=== PATIENT | female | born 1950 | race Caucasian/White ===

== ENCOUNTER 2020-08-12 09:05 | Outpatient (REF) | payer MEDICARE, SELFPAY ==
[2020-08-12 11:36] LABS: Estimated Average Glucose 163 mg/dL; Hemoglobin A1c % 7.3 %
[2020-08-12 12:06] LABS: Alanine Aminotransferase 21 U/L (0-31); Albumin Level 4.7 g/dL (3.5-5.0); Alkaline Phosphatase 74 U/L (39-117); Anion Gap 16 (12-20); Aspartate Amino Transferase 24 U/L (5-31); Bilirubin Total 0.9 mg/dL (0.0-1.0); Blood Urea Nitrogen 32 mg/dL (9-16); Calcium 9.3 mg/dL (8.4-10.2); Carbon Dioxide 25 mmol/L (22-29); Chloride 106 mmol/L (96-108); Cholesterol 147 mg/dL; Estimated Glomerular Filt Rate 37; Glucose Fasting 160 mg/dL (60-99); HDL Cholesterol 35 mg/dL; LDL Cholesterol Calculated 92 mg/dl; Potassium 5.3 mmol/l (3.3-5.1); Sodium 142 mmol/L (135-145); Total Protein 7.7 g/dL (6.5-8.0); Triglycerides 103 mg/dL
[2020-08-12 12:07] LABS: TSH reflex Free T4 1.37 mIU/mL (0.32-4.0)
[2020-08-13 08:38] LABS: Lyme Abs Screen <0.90 index
== END 2020-08-12 09:06 | disposition home or self-care (01) ==
LOC: HO.HMGCLDS 09:05
PROVIDERS: PCP Nurse Practitioner Family; Visit Provider Nurse Practitioner Family
DX: E11.9 Type 2 diabetes mellitus without complications (principal); W57.XXXA Bitten or stung by nonvenomous insect and other nonvenomous arthropods, initial encounter; I10 Essential (primary) hypertension
CPT/HCPCS: 80053; 80061; 83036; 84443; 86618

== ENCOUNTER 2020-08-13 12:51 | Outpatient (REF) | payer MEDICARE, SELFPAY ==
[2020-08-13 14:17] LABS: Anion Gap 15 (12-20); Carbon Dioxide 23 mmol/L (22-29); Chloride 105 mmol/L (96-108); Potassium 5.4 mmol/l (3.3-5.1); Sodium 138 mmol/L (135-145)
== END 2020-08-13 12:52 | disposition home or self-care (01) ==
LOC: HO.HMGCLDS 12:51
PROVIDERS: PCP Nurse Practitioner Family; Visit Provider Nurse Practitioner Family
DX: E87.5 Hyperkalemia (principal)
CPT/HCPCS: 80051

== ENCOUNTER 2020-08-14 06:23 | Outpatient (REF) | payer MEDICARE, SELFPAY ==
[2020-08-14 12:00] LABS: Anion Gap 12 (12-20); Carbon Dioxide 30 mmol/L (22-29); Chloride 104 mmol/L (96-108); Potassium 4.6 mmol/l (3.3-5.1); Sodium 141 mmol/L (135-145)
== END 2020-08-14 06:24 | disposition home or self-care (01) ==
LOC: HO.HMGCLDS 06:23
PROVIDERS: PCP Nurse Practitioner Family; Visit Provider Nurse Practitioner Family
DX: E87.5 Hyperkalemia (principal)
CPT/HCPCS: 80051

== ENCOUNTER 2020-09-02 06:35 | Outpatient (REF) | payer MEDICARE, SELFPAY | END 2020-09-02 06:36 | disposition home or self-care (01) | LOC: HO.HMGCLDS 06:35 | PROVIDERS: PCP Nurse Practitioner Family; Visit Provider Internal Medicine | DX: Z20.822 Contact with and (suspected) exposure to COVID-19 (principal) | CPT/HCPCS: 36415; C9803; U0003 ==

== ENCOUNTER 2020-11-21 09:54 | Outpatient (REF) | payer MEDICARE, SELFPAY ==
[2020-11-21 11:32] LABS: Estimated Average Glucose 166 mg/dL; Hemoglobin A1c % 7.4 %
== END 2020-11-21 09:55 | disposition home or self-care (01) ==
LOC: HO.HMGCLDS 09:54
PROVIDERS: PCP Nurse Practitioner Family; Visit Provider Nurse Practitioner Family
DX: E11.9 Type 2 diabetes mellitus without complications (principal)
CPT/HCPCS: 36415; 80053; 80061; 83036; 84443

== ENCOUNTER 2020-12-04 06:04 | Outpatient (REF) | payer MEDICARE, SELFPAY ==
[2020-12-04 17:44] LABS: Alanine Aminotransferase 20 U/L (0-31); Albumin Level 4.3 g/dL (3.5-5.0); Alkaline Phosphatase 67 U/L (39-117); Anion Gap 13 (12-20); Aspartate Amino Transferase 18 U/L (5-31); Bilirubin Total 0.7 mg/dL (0.0-1.0); Blood Urea Nitrogen 22 mg/dL (9-16); Calcium 9.1 mg/dL (8.4-10.2); Carbon Dioxide 28 mmol/L (22-29); Chloride 106 mmol/L (96-108); Cholesterol 143 mg/dL; Estimated Glomerular Filt Rate 45; Glucose Fasting 151 mg/dL (60-99); HDL Cholesterol 35 mg/dL; LDL Cholesterol Calculated 84 mg/dl; Potassium 4.5 mmol/L (3.3-5.1); Sodium 142 mmol/L (135-145); Total Protein 7.2 g/dL (6.5-8.0); Triglycerides 121 mg/dL
[2020-12-04 17:56] LABS: TSH reflex Free T4 3.35 uIU/mL (0.32-4.0)
== END 2020-12-04 06:05 | disposition home or self-care (01) ==
LOC: HO.HMGCLDS 06:04
PROVIDERS: PCP Nurse Practitioner Family; Visit Provider Nurse Practitioner Family
DX: E11.9 Type 2 diabetes mellitus without complications (principal)
CPT/HCPCS: 36415; 80053; 80061; 84443

== ENCOUNTER → 2021-01-21 08:18 | Outpatient (BNVA) | payer MEDICARE, SELFPAY | PROVIDERS: PCP Nurse Practitioner Family; Referring Provider Nurse Practitioner Family; Visit Provider Internal Medicine Cardiovascular Disease | DX: I48.20 Chronic atrial fibrillation, unspecified (principal); I10 Essential (primary) hypertension | CPT/HCPCS: 93005; 99212 ==

== ENCOUNTER → 2021-08-04 08:10 | Outpatient (REF) | payer MEDICARE, SELFPAY ==
--- NOTE | 2021-08-04 08:12 | CA_ITS ---
Transthoracic Echocardiogram Patient (Last, First, Middle): Anastasiya Phan A Gender: Female Date of : 1950 Age: 71 Procedure Date: 08/04/2021 Procedure Type: Transthoracic Echocardiogram Location: OP Height: 165.1 cm Weight: 92.08 kg BSA: 1.99 m2 Heart Rate: bpm BP: 130 / 80 mmHg Fancy Packer: NEAL Referring MD: Parish Juan MD Symptoms: I48.20 - Chronic atrial fibrillation, unspecified Study Quality: Technically Difficult ECG Rhythm: Atrial Fibrillation Conclusions: - The left ventricular systolic function is normal. The visually estimated ejection fraction is between 55-60%. - There is low normal right ventricular systolic function. - There is moderate mitral annular calcification. - Mild pulmonary hypertension is present. Findings Procedure Information The patient declines contrast. Left Ventricle Normal left ventricular cavity size. There is mildly increased left ventricular wall thickness. The left ventricular systolic function is normal. The visually estimated ejection fraction is between 55-60%. There is no evidence of regional wall motion abnormalities. Diastolic function is indeterminate on the basis of available data. Right Ventricle Mildly increased right ventricular cavity size. There is low normal right ventricular systolic function. TAPSE 1.7cm. Atria The left atrium is mildly dilated. (LAESV 37ml/m2). The right atrium is normal in size. Aortic Valve The aortic valve was not well visualized. There is no aortic valve stenosis. The mean gradient is 3 mmHg. There is trace (trivial) aortic valve regurgitation. Mitral Valve The mitral valve was not well visualized. There is moderate mitral annular calcification. There is mild mitral valve regurgitation. There is no mitral valve stenosis. Pulmonic Valve The pulmonic valve was not well visualized. Tricuspid Valve The tricuspid valve was not well visualized. There is mild tricuspid valve regurgitation. The right ventricular systolic pressure is 42 mmHg. Mild pulmonary hypertension is present. Great Vessels The aorta was not well visualized. Venous The inferior vena cava collapses less than 50% with inspiration. Top normal IVC size. Pericardium/Pleural There is no evidence of pericardial effusion. Prior Study Comparison Changes noted compared to prior study dated: 04/06/2018. Increase in RVSP. Measurements 2D Linear Measurements IVSd: 1.13 0.6-0.9/0.6-1.0 cm LVIDd: 3.97 3.9-5.3/4.2-5.9 cm LVIDd Index: 1.99 2.4-3.2/2.2-3.1 cm/m2 LVIDs: 2.94 2.0-3.6 cm LVPWd: 1.09 0.7-1.1 cm Ao Root: 3.20 2.1-3.5 cm LA Diam: 4.20 2.7-3.8/3.0-4.0 cm LAIDs Index: 2.11 1.5-2.3 cm/m2 LV Mass: 181.59 67-162/88-224 g LV Mass Index: 91.25 43-95/49-115 g/m2 LVOT Diam: 2.20 3.0+(-)1.3 cm Aortic Valve AoV Pk Arian: 1.36 AoV Mn Arian: 0.85 AoV VTI: 0.26 AoV Pk Grad: 7.00 Aov Mn Grad: 3.00 JUANIS Cont.VTI: 2.06 LVOT LVOT Pk Arian: 0.69 LVOT Mn Arian: 0.48 LVOT VTI: 0.14 LVOT Pk Grad: 2.00 LVOT Mn Grad: 1.00 LVOT Diam: 2.20 LVOT Area: 3.80 Right Ventricle TAPSE (mm): 1.74 TVS' Arian: 12.10 Tricuspid Valve TR Pk Arian: 2.91 TR Pk Grad: 34.00 RA Press: 8.00 RVSP: 42.00 Great Vessels Aorta Ao Root-2D: 3.20 2.0-3.7 cm Ao Arch: 3.10 Updated in Other Vendor System with Status of Final Mason Hilliard MD electronically signed on 08/04/2021 12:16:24 PM with status of Final
== END ==
LOC: HO.CARD 08:10
PROVIDERS: PCP Nurse Practitioner Family; Visit Provider Internal Medicine Cardiovascular Disease
DX: I48.20 Chronic atrial fibrillation, unspecified (principal); I10 Essential (primary) hypertension
CPT/HCPCS: 93306

== ENCOUNTER 2021-09-17 08:43 | Outpatient (REF) | payer MEDICARE, SELFPAY ==
--- NOTE | ~2021-09-17 | XR_ITS ---
EXAMINATION: XR WRIST, RIGHT CLINICAL INFORMATION: M25.531 - Pain in right wrist. COMPARISON: Radiographs right wrist 09/28/2007. TECHNIQUE: Right wrist is imaged in 4 views. FINDINGS: The navicular view shows subtle cortical irregularity at the distal lateral aspect of the navicular. If there has been recent injury, this could be related to a focal non-displaced fracture. Clinically correlate. Otherwise, there is no fracture or dislocation demonstrated. Mild degenerative changes are present at the 1st carpometacarpal joint. There are no erosive changes or chondrocalcinosis. The ulnar variance is neutral. Normal bony mineralization. XR/XR wrist RT min 3V IMPRESSION: 1. Question of focal cortical irregularity distal lateral corner navicular on 1 view. If there has been recent injury, this could be related to a focal non-displaced fracture. Clinically correlate. 2. Mild degenerative changes 1st CMC joint.
== END 2021-09-17 08:44 | disposition home or self-care (01) ==
LOC: HO.HMGCX 08:43
PROVIDERS: PCP Nurse Practitioner Family; Visit Provider Nurse Practitioner Family
DX: M25.531 Pain in right wrist (principal)
CPT/HCPCS: 73110

== ENCOUNTER 2021-09-23 07:21 | Outpatient (REF) | payer MEDICARE, SELFPAY ==
--- NOTE | ~2021-09-23 | XR_ITS ---
EXAMINATION: XR RIGHT WRIST CLINICAL INFORMATION: Pain COMPARISON: Previous x-ray 09/17/2021 and August 2007 exam TECHNIQUE: 4 views of the right wrist FINDINGS: There is slight cortical irregularity of the lateral distal scaphoid bone similar to previous exams. There are cystic changes seen in the radial styloid and navicular bone. There are degenerative changes of the 1st SHELTER joint. There are small soft tissue calcifications adjacent to the triquetrum and ulnar styloid. XR/XR wrist RT w scaphoid IMPRESSION: Stable cortical irregularity of the lateral radial side of the distal scaphoid bone from previous exams. Cystic changes radial styloid and scaphoid bone. Findings may be related to inflammatory arthritis. Degenerative changes of the 1st SHELTER joint.
== END 2021-09-23 07:22 | disposition home or self-care (01) ==
LOC: HO.HOSX 07:21
PROVIDERS: Visit Provider Physician Assistant
DX: S63.501A Unspecified sprain of right wrist, initial encounter (principal); S62.001A Unspecified fracture of navicular [scaphoid] bone of right wrist, initial encounter for closed fracture
CPT/HCPCS: 73110; 99202

== ENCOUNTER 2021-10-14 07:11 | Outpatient (REF) | payer MEDICARE, SELFPAY ==
--- NOTE | ~2021-10-14 | XR_ITS ---
EXAMINATION: XR WRIST, RIGHT CLINICAL INFORMATION: Right wrist pain. COMPARISON: Right wrist 09/23/2021. TECHNIQUE: 4 views of the right wrist. FINDINGS: Compared to the study from less than one month ago there has been no interval change. Again seen are degenerative findings at the 1st MCFP joint. An osteophyte is arising laterally from the scaphoid which also has a cyst. Some mild degenerative changes seen at the radiocarpal joint with a subchondral radial cyst, unchanged. The soft tissue calcification seen lateral to the ulnar styloid is not seen on the current study. XR/XR wrist RT w scaphoid IMPRESSION: Degenerative changes in the wrist and MCFP joint of the 1st digit. There has been no interval change since the prior exam. No evidence of an acute fracture.
== END 2021-10-14 07:12 | disposition home or self-care (01) ==
LOC: HO.HOSX 07:11
PROVIDERS: Visit Provider Physician Assistant
DX: S62.001A Unspecified fracture of navicular [scaphoid] bone of right wrist, initial encounter for closed fracture (principal)
CPT/HCPCS: 29085; 73110; 99212

== ENCOUNTER 2021-10-16 11:57 | Outpatient (REF) | payer MEDICARE, SELFPAY ==
--- NOTE | ~2021-10-16 | MR_ITS ---
EXAMINATION: MR WRIST WITHOUT CONTRAST, RIGHT CLINICAL INFORMATION: Fall 1.5 months ago. Pain of wrist and thumb. Navicular/scaphoid fracture. COMPARISON: Multiple priors, most recent right wrist radiographs dated 10/14/2021. TECHNIQUE: MRI of the wrist was performed using routine sequences on a high-field scanner. FINDINGS: TRIANGULAR FIBROCARTILAGE: There is a full-thickness tear through the central radial aspect of the triangular fibrocartilage complex measuring up to 0.3 cm in ML dimension. INTRINSIC LIGAMENTS: There is diffuse thickening and abnormal signal throughout the scapholunate ligament without associated joint space widening, consistent with a chronic sprain/partial tear. TENDONS/MEDIAN NERVE: Intact ARTICULAR CARTILAGE/BONE: No acute fracture or dislocation. Specifically, there is no scaphoid fracture. There is full-thickness articular cartilage loss with prominent marginal osteophytes and associated subchondral cystic change at the triscaphe and first carpometacarpal joints. There are degenerative cysts scattered throughout the carpal bones, most prominent within the ventral lunate and additionally within the ventral distal radius. JOINT FLUID/SOFT TISSUES: Small distal radial ulnar joint effusion. MR/MR wrist RT wo con IMPRESSION: 1. Full-thickness tear through the central radial aspect of the triangular fibrocartilage complex measuring 0.3 cm in ML dimension. Small distal radial ulnar joint effusion. 2. Probable remote sprain/partial tear of the scapholunate ligament without joint space widening. 3. [id number] osteophyte arthritis at the triscaphe and first carpometacarpal joints. Carpal cysts scattered throughout the hand. 4. No acute fracture or dislocation. Specifically, no scaphoid waist fracture.
== END 2021-10-16 11:58 | disposition home or self-care (01) ==
LOC: HO.MRI 11:57
PROVIDERS: Visit Provider Physician Assistant
DX: S62.001D Unspecified fracture of navicular [scaphoid] bone of right wrist, subsequent encounter for fracture with routine healing (principal)
CPT/HCPCS: 73221

== ENCOUNTER 2021-12-08 05:59 | Outpatient (REF) | payer MEDICARE, SELFPAY ==
[2021-12-08 11:26] LABS: Appearance Urine CLEAR; Color Urine YELLOW; Glucose Urine UA NEG (NEG); Leukocyte Esterase Urine NEG (NEG); Nitrite Urine NEG (NEG); Specific Gravity - Urine 1.025 (1.005-1.025); UACC Culture Trigger NO; Urine Blood NEG (NEG); Urine Ketones NEG (NEG); Urine Protein 2+ MG/DL (NEG-TRACE)
[2021-12-08 11:45] LABS: Alanine Aminotransferase 17 U/L (0-31); Albumin Level 4.3 g/dL (3.5-5.0); Alkaline Phosphatase 67 U/L (39-117); Anion Gap 15 (12-20); Aspartate Amino Transferase 16 U/L (5-31); Bilirubin Total 0.7 mg/dL (0.0-1.0); Blood Urea Nitrogen 23 mg/dL (9-16); Calcium 9.6 mg/dL (8.4-10.2); Carbon Dioxide 26 mmol/L (22-29); Chloride 103 mmol/L (96-108); Cholesterol 170 mg/dL; Estimated Glomerular Filt Rate 44; Glucose Fasting 222 mg/dL (60-99); HDL Cholesterol 30 mg/dL; LDL Cholesterol Calculated 114 mg/dl; Potassium 4.6 mmol/L (3.3-5.1); Sodium 139 mmol/L (135-145); Total Protein 7.2 g/dL (6.5-8.0); Triglycerides 134 mg/dL
[2021-12-08 11:52] LABS: RBC Urine 0-2 /HPF (0); Squamous Epithelial Cell Urine 2+ /LPF; WBC Urine 0-2 /HPF (0-4)
[2021-12-08 11:53] LABS: Bacteria Urine TRACE /LPF
[2021-12-08 12:00] LABS: Estimated Average Glucose 258 mg/dL; Hemoglobin A1c % 10.6 %
[2021-12-08 12:06] LABS: TSH reflex Free T4 3.54 uIU/mL (0.32-4.0); Vitamin D 25-OH Total 19.7 ng/mL (>30)
[2021-12-08 12:07] LABS: Creatinine Urine 132.64 mg/dL; Microalbum/Creatinine Ratio Ur 314.3 ug/mg cr
== END 2021-12-08 06:00 | disposition home or self-care (01) ==
LOC: HO.HMGCLDS 05:59
PROVIDERS: Visit Provider Nurse Practitioner Family
DX: E11.9 Type 2 diabetes mellitus without complications (principal); E55.9 Vitamin D deficiency, unspecified
CPT/HCPCS: 36415; 80053; 80061; 81001; 82043; 82306; 83036; 84443

== ENCOUNTER → 2022-02-05 07:58 | Outpatient (BNVA) | payer MEDICARE, SELFPAY | PROVIDERS: PCP Nurse Practitioner Family; Referring Provider Nurse Practitioner Family; Visit Provider Internal Medicine Cardiovascular Disease | DX: I48.20 Chronic atrial fibrillation, unspecified (principal); I45.2 Bifascicular block | CPT/HCPCS: 99212 ==

== ENCOUNTER 2022-04-29 10:25 | Outpatient (REF) | payer MEDICARE, SELFPAY ==
--- NOTE | ~2022-04-29 | XR_ITS ---
EXAMINATION: XR FOOT, RIGHT CLINICAL INFORMATION: Foot pain status post fall. COMPARISON: None TECHNIQUE: AP, lateral, and oblique views of the right foot. FINDINGS: Postsurgical and degenerative changes are seen in the metatarsals and phalanges. There is a hallux valgus deformity. No overt cortical erosive changes seen. There is no acute fracture or dislocation. The tarsal bones are normally aligned. Small plantar and retrocalcaneal spurs. Moderate to severe atherosclerosis. The soft tissues are unremarkable. XR/XR foot RT min 3V IMPRESSION: Chronic degenerative and postsurgical changes without definitive acute abnormality.
== END 2022-04-29 10:26 | disposition home or self-care (01) ==
LOC: HO.HMGCX 10:25
PROVIDERS: PCP Nurse Practitioner Family; Visit Provider Emergency Medicine
DX: M79.671 Pain in right foot (principal); W19.XXXA Unspecified fall, initial encounter
CPT/HCPCS: 73630

== ENCOUNTER 2022-05-09 17:35 | Emergency (ER) | payer MEDICARE, SELFPAY ==
[2022-05-09 17:49] VITALS: BP 185/94; PULSE 104; RESP 18; TEMP 36.4; O2SAT 100; BMI 34.9
--- NOTE | 2022-05-09 18:00 | ED_ITS ---
History of Present Illness General Chief Complaint: Epistaxis Stated Complaint: Bloody nose Time Seen by Provider: 05/09/22 17:59 Source: patient Mode of arrival: ambulatory Limitations: no limitations History of Present Illness HPI Narrative: Patient with history of AFib on Eliquis picked her nose and started bleeding earlier today. In between then restarted localized to left nostril Related Data Previous Rx's Medication Instructions Recorded apixaban 5 mg tablet (Eliquis) 5 mg PO BID 90 days #180 tabs 09/19/21 metoprolol tartrate 50 mg tablet 100 mg PO BID 90 days #360 tabs 03/20/22 Allergies Allergy/AdvReac Type Severity Reaction Status Date / Time Iodinated Contrast Media Allergy Severe ANAPHYLAXIS Verified 05/09/22 17:49 [IV Dye, Iodine Containing] shellfish derived Allergy Severe ANAPHYLAXIS Verified 04/29/22 09:24 [SHELLFISH DERIVED] diltiazem [Cardizem] Allergy Unknown sob and Verified 04/29/22 09:24 leg swelling gabapentin [GABAPENTIN] Allergy Unknown UNKNOWN-PATIENT Verified 04/29/22 09:24 REFUSES gadobutrol [Gadavist] Allergy Unknown Unknown Verified 04/29/22 09:24 iopromide [Ultravist] Allergy Unknown Unknown Verified 04/29/22 09:24 Review of Systems Review of Systems: Yes all other systems are reviewed and are negative PMFSH Past Medical History Medical History Anxiety Chronic atrial fibrillation Colonoscopy refused Diabetes mellitus 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 HTN (hypertension) Hypercholesteremia Immunization consent not given Mammogram declined Sciatica of right side Tick bite Surgical History H/O lumbosacral spine surgery History of cholecystectomy Family History Family History Father Prostate cancer Mother Kidney disease Social History Social History Housing: House Alcohol intake: never Patient Tobacco Use Status: Never used Tobacco e-Cigarette/Vaping Use: Never Used Use of substances other than those prescribed or required for medical reasons: No Advance Directives: No Advance Directives Information Provided: No service: No Current occupational status: retired Current occupation: Rt handed Cognitive needs: No Hearing needs: No Vision needs: No Physical Exam Vital Signs: Vital Signs: Last Vital Signs Temp 97.6 F 05/09/22 17:49 Pulse 93 05/09/22 18:16 Resp 20 05/09/22 18:16 BP 179/92 H 05/09/22 18:16 Pulse Ox 96 05/09/22 18:16 O2 Del Method 05/09/22 18:16 BMI result Body Mass Index 34.9 Appearance: Alert. Oriented X3. No acute distress. Eyes: No pallor/icterus ENT: Pharynx normal. Oral Mucosa moist active bleeding left nostril from anterior part of nasal septum Neck: Normal inspection. Neck supple. CVS: Normal heart rate and rhythm. Pulses normal. Respiratory: No respiratory distress. Equal air entry bilateral, no wheezing/rales/rhonchi Abdomen: Soft and nontender. Bowel sounds are present, no mass palpable, Skin: Skin warm and dry. Normal skin color. Normal skin turgor. Extremities: No lower extremity edema. No calf tenderness Neuro: Oriented X 3. No motor deficit. MDM - Epistaxis MDM Narrative Medical decision making narrative: Patient with minor epistaxis stopped by TXA and blood vessels at the Little's ar ea left nostril were cauterized using silver nitrate, patient hemodynamically stable Procedures Epistaxis Control Time Out Performed: Yes Nostril: Yes left Direct inspection: Yes anterior source identified Direct inspection method: Yes otoscope Clots removed by: Yes blowing nose Epistaxis treatment: Yes TXA soaked gauze and Yes silver nitrate cautery Results of treatment: Yes bleeding controlled Complications: Yes none Discharge Plan Discharge Clinical Impression: Epistaxis Patient Disposition: Home, Self-Care Instructions: Nosebleed (ED) Additional Instructions: Hold Eliquis tonight Local care as advised Report to ER if recurrence of bleed You can resume your Eliquis in a.m. if no bleeding Prescriptions: No Action Eliquis 5 mg tablet 5 mg PO BID 90 Days Qty: 180 2RF metoprolol tartrate 50 mg tablet 100 mg PO BID 90 Days Qty: 360 3RF Interventions: ED Discharge Assessment Last Done: 05/09/22 20:13 Discharge Date/Time: 05/09/22 20:14
[2022-05-09] MEDS: Tranexamic Acid 1,000 MG/10 ML VIAL 500 MG INTRANASAL (18:12)
[2022-05-09] MEDS: Silver Nitrate Applicator STICK..EA. 1 APPL TOPICAL (18:12)
[2022-05-09 18:16] VITALS: BP 179/92; PULSE 93; RESP 20; O2SAT 96
--- NOTE | 2022-05-09 19:55 | PC.NURSE ---
Assumed care of pt 05/09 1900, pt is A&Ox4, no complaints of pain at this time, no epitaxsis noted at this time. Awaiting dispo. Call park within reach. Will continue to monitor.
== END 2022-05-09 20:14 | disposition home or self-care (01) ==
PROVIDERS: Emergency Provider Internal Medicine; PCP Nurse Practitioner Family
DX: R04.0 Epistaxis (principal); I48.20 Chronic atrial fibrillation, unspecified; E11.9 Type 2 diabetes mellitus without complications; I10 Essential (primary) hypertension; E78.00 Pure hypercholesterolemia, unspecified; Z79.01 Long term (current) use of anticoagulants
CPT/HCPCS: 30901; 99284

== ENCOUNTER 2022-07-01 08:10 | Outpatient (REF) | payer MEDICARE, SELFPAY ==
--- NOTE | ~2022-07-01 | XR_ITS ---
EXAMINATION: XR HAND, RIGHT CLINICAL INFORMATION: Right hand contusion. COMPARISON: None TECHNIQUE: PA, lateral, and oblique views of the right hand. FINDINGS: Mild to moderate distal interphalangeal, second digit proximal interphalangeal and first carpometacarpal degenerative joint changes are seen. There is no fracture or dislocation. The carpal bones are normally aligned. The distal radius and ulna are intact. Mild soft tissue swelling is seen most pronounced in the second digit. No radiopaque foreign body. XR/XR hand RT min 3V IMPRESSION: 1. Mild soft tissue swelling without definitive acute osseous abnormality. 2. Nzpg-el-[id number] degenerative joint changes most consistent with osteoarthritis.
== END 2022-07-01 08:11 | disposition home or self-care (01) ==
LOC: HO.XRAY 08:10
PROVIDERS: PCP Nurse Practitioner Family; Visit Provider Internal Medicine
DX: S60.221A Contusion of right hand, initial encounter (principal)
CPT/HCPCS: 73130

== ENCOUNTER 2022-10-19 06:46 | Outpatient (REF) | payer MEDICARE, SELFPAY ==
[2022-10-19 10:58] LABS: MANUAL DIFF FLAG NO
[2022-10-19 11:05] LABS: Appearance Urine Cloudy; Basophils Percent Auto 0.5 % (0-2); Color Urine Yellow; Eosinophils Absolute Auto 0.2 X10*3/uL (0.0-0.4); Eosinophils Percent Auto 3.2 % (0-4); Glucose Urine UA 250 mg/dL (Negative); Hematocrit 39.2 % (37.0-47.0); Hemoglobin 12.8 g/dl (12.0-16.0); Imm Gran Abs Auto 0.03 X10*3/uL (0.00-0.03); Imm Gran Pct Auto 0.5 % (0.0-0.4); Leukocyte Esterase Urine Small (1+) (Negative); Lymphocytes Absolute Auto 1.4 X10*3/uL (1.2-4.9); Lymphocytes Percent Auto 23.2 % (20-40); Mean Corpuscular HGB Conc 32.7 g/dl (31.0-35.0); Mean Platelet Volume 11.9 fL (9.4-12.3); Monocytes Absolute Auto 0.5 X10*3/uL (0.1-1.2); Monocytes Percent Auto 8.3 % (2-11); Neutrophils Percent Auto 64.3 % (45-73); Nitrite Urine Negative (Negative); PH 5.5 (5.0-9.0); Platelet Count 128 X10*3/uL (160-400); Red Blood Count 4.26 X10*6/uL (4.20-5.50); Red Cell Distribution Width 12.4 % (11.0-16.0); UMIC TRIGGER UACC YES; Urine Blood Negative (Negative); Urine Ketones Negative (Negative); Urine Protein 300 (3+) mg/dL (Neg-Trace); White Blood Count 6.2 X10*3/uL (4.8-10.8)
[2022-10-19 11:10] LABS: Bacteria Urine None Seen (None Seen); Hyaline Casts Urine 0-2 /LPF (0-2); RBC Urine 0-2 /HPF (0-2); UACC Culture Trigger YES; WBC Urine >50 /HPF (0-5)
[2022-10-19 11:23] LABS: Alanine Aminotransferase 16 U/L (0-31); Alkaline Phosphatase 65 U/L (39-117); Anion Gap 16 (12-20); Aspartate Amino Transferase 14 U/L (5-31); Bilirubin Total 0.8 mg/dL (0.0-1.0); Blood Urea Nitrogen 23 mg/dL (9-16); Calcium 9.1 mg/dL (8.4-10.2); Carbon Dioxide 23 mmol/L (22-29); Chloride 105 mmol/L (96-108); Cholesterol 145 mg/dL; Estimated Glomerular Filt Rate 44; Glucose Fasting 275 mg/dL (60-99); HDL Cholesterol 29 mg/dL; LDL Cholesterol Calculated 90 mg/dl; Potassium 4.8 mmol/L (3.3-5.1); Sodium 139 mmol/L (135-145); Total Protein 6.7 g/dL (6.5-8.0); Triglycerides 131 mg/dL
[2022-10-19 11:27] LABS: Estimated Average Glucose 283 mg/dL; Hemoglobin A1c % 11.5 %
[2022-10-19 11:42] LABS: TSH reflex Free T4 3.29 uIU/mL (0.32-4.0)
[2022-10-19 11:45] LABS: Creatinine Urine 139.48 mg/dL
[2022-10-19 11:59] LABS: Microalbum/Creatinine Ratio Ur 589.3 ug/mg cr
== END 2022-10-19 06:47 | disposition home or self-care (01) ==
LOC: HO.HMGCLDS 06:46
PROVIDERS: PCP Nurse Practitioner Family; Visit Provider Nurse Practitioner Family
DX: E11.9 Type 2 diabetes mellitus without complications (principal); R82.90 Unspecified abnormal findings in urine
CPT/HCPCS: 36415; 80053; 80061; 81001; 81003; 82043; 83036; 84443; 85025; 87086

== ENCOUNTER 2023-01-21 07:20 | Outpatient (REF) | payer MEDICARE, SELFPAY ==
[2023-01-21 11:20] LABS: MANUAL DIFF FLAG NO
[2023-01-21 11:26] LABS: Appearance Urine Clear; Color Urine Yellow; Glucose Urine UA Negative (Negative); Leukocyte Esterase Urine Negative (Negative); Nitrite Urine Negative (Negative); PH 5.5 (5.0-9.0); Specific Gravity - Urine 1.015 (1.005-1.025); UMIC TRIGGER UACC YES; Urine Blood Negative (Negative); Urine Ketones Negative (Negative); Urine Protein 100 (2+) mg/dL (Neg-Trace)
[2023-01-21 11:32] LABS: Bacteria Urine None Seen (None Seen); Hyaline Casts Urine 0-2 /LPF (0-2); RBC Urine 0-2 /HPF (0-2); Squamous Epithelial Cell Urine 0-2 /HPF (0-2); WBC Urine 0-5 /HPF (0-5)
[2023-01-21 11:34] LABS: Basophils Percent Auto 0.3 % (0-2); Eosinophils Absolute Auto 0.2 X10*3/uL (0.0-0.4); Eosinophils Percent Auto 2.5 % (0-4); Hematocrit 42.6 % (37.0-47.0); Hemoglobin 13.9 g/dl (12.0-16.0); Imm Gran Abs Auto 0.02 X10*3/uL (0.00-0.03); Imm Gran Pct Auto 0.3 % (0.0-0.4); Lymphocytes Absolute Auto 1.1 X10*3/uL (1.2-4.9); Mean Corpuscular HGB Conc 32.6 g/dl (31.0-35.0); Mean Corpuscular Hemoglobin 29.8 pg (27.0-33.0); Mean Corpuscular Volume 91.2 fL (80.0-98.0); Mean Platelet Volume 11.5 fL (9.4-12.3); Monocytes Absolute Auto 0.6 X10*3/uL (0.1-1.2); Monocytes Percent Auto 7.7 % (2-11); Neutrophils Absolute Auto 5.6 x10*3/uL (2.0-8.3); Neutrophils Percent Auto 74.2 % (45-73); Platelet Count 134 X10*3/uL (160-400); Red Blood Count 4.67 X10*6/uL (4.20-5.50); Red Cell Distribution Width 12.5 % (11.0-16.0); White Blood Count 7.5 X10*3/uL (4.8-10.8)
[2023-01-21 11:39] LABS: Estimated Average Glucose 246 mg/dL; Hemoglobin A1c % 10.2 %
[2023-01-21 11:57] LABS: Alanine Aminotransferase 18 U/L (0-31); Albumin Level 4.2 g/dL (3.5-5.0); Alkaline Phosphatase 70 U/L (39-117); Anion Gap 12 (12-20); Aspartate Amino Transferase 17 U/L (5-31); Bilirubin Total 0.9 mg/dL (0.0-1.0); Blood Urea Nitrogen 28 mg/dL (9-16); Calcium 9.5 mg/dL (8.4-10.2); Carbon Dioxide 27 mmol/L (22-29); Chloride 106 mmol/L (96-108); Cholesterol 167 mg/dL; Estimated Glomerular Filt Rate 40; Glucose Fasting 235 mg/dL (60-99); HDL Cholesterol 30 mg/dL; LDL Cholesterol Calculated 111 mg/dl; Sodium 140 mmol/L (135-145); TSH reflex Free T4 3.02 uIU/mL (0.32-4.0); Total Protein 7.2 g/dL (6.5-8.0); Triglycerides 131 mg/dL
== END 2023-01-21 07:21 | disposition home or self-care (01) ==
LOC: HO.HMGCLDS 07:20
PROVIDERS: PCP Nurse Practitioner Family; Visit Provider Nurse Practitioner Family
DX: E11.65 Type 2 diabetes mellitus with hyperglycemia (principal)
CPT/HCPCS: 36415; 80053; 80061; 81001; 83036; 84443; 85025

== ENCOUNTER 2023-01-27 10:31 | Outpatient (REF) | payer MEDICARE, SELFPAY ==
[2023-01-27 14:31] LABS: Appearance Urine Cloudy; Color Urine Yellow; Glucose Urine UA 100 mg/dL (Negative); Leukocyte Esterase Urine Trace (Negative); Nitrite Urine Negative (Negative); PH 5.5 (5.0-9.0); Specific Gravity - Urine 1.015 (1.005-1.025); UMIC TRIGGER UA YES; UMIC TRIGGER UACC YES; Urine Blood Negative (Negative); Urine Ketones Negative (Negative); Urine Protein 100 (2+) mg/dL (Neg-Trace)
[2023-01-27 14:41] LABS: Bacteria Urine None Seen (None Seen); Hyaline Casts Urine 0-2 /LPF (0-2); RBC Urine 0-2 /HPF (0-2); WBC Urine 0-5 /HPF (0-5)
== END 2023-01-27 10:32 | disposition home or self-care (01) ==
LOC: HO.HMGCLDS 10:31
PROVIDERS: PCP Nurse Practitioner Family; Visit Provider Nurse Practitioner Family
DX: R30.0 Dysuria (principal)
CPT/HCPCS: 81001; 81003; 87086

== ENCOUNTER → 2023-03-05 06:38 | Outpatient (REF) | payer MEDICARE, SELFPAY | LOC: HO.CARD 06:38 | PROVIDERS: PCP Nurse Practitioner Family; Visit Provider Internal Medicine Cardiovascular Disease | DX: I48.20 Chronic atrial fibrillation, unspecified (principal) | CPT/HCPCS: 93306 ==

== ENCOUNTER 2023-04-05 11:58 | Outpatient (AMB) | payer MEDICARE, SELFPAY ==
--- NOTE | 2023-04-05 12:28 | A.OFFVIS_ITS ---
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: No Allergies Iodinated Contrast Media [IV Dye, Iodine Containing] Allergy (Severe, Verified 01/27/23 10:24) ANAPHYLAXIS shellfish derived [SHELLFISH DERIVED] Allergy (Severe, Verified 01/27/23 10:24) ANAPHYLAXIS diltiazem [Cardizem] Allergy (Unknown, Verified 01/27/23 10:24) sob and leg swelling gabapentin [GABAPENTIN] Allergy (Unknown, Verified 01/27/23 10:24) UNKNOWN-PATIENT REFUSES gadobutrol [Gadavist] Allergy (Unknown, Verified 01/27/23 10:24) Unknown iopromide [Ultravist] Allergy (Unknown, Verified 01/27/23 10:24) Unknown Medication List - Last Reconciled 04/05/23 by Parish Juan MD apixaban (Eliquis) 5 mg PO BID 90 days metoprolol tartrate 100 mg (2 x 50 mg) PO BID 90 days HPI HPI Comments History of Present Illness Details Anastasiya comes for follow-up. Patient denies any new cardiac symptoms. Takes all medications. Recent echocardiogram shows severe left atrial enlargement and severe mitral calcification but with normal LV systolic function. Denies any bleeding issues or neurologic events. Denies any progressive heart failure symptoms. No orthopnea, PND, leg edema. 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 HTN (hypertension) Hypercholesteremia Immunization consent not given Mammogram declined Sciatica of right side Tick bite Surgical History H/O lumbosacral spine surgery History of cholecystectomy Family History Father Prostate cancer Mother Kidney disease Social History Housing: House Alcohol intake: never Patient Tobacco Use Status: Never used Tobacco e-Cigarette/Vaping Use: Never Used service: No Current occupational status: retired Current occupation: Rt handed Cognitive needs: No Hearing needs: No Vision needs: No Review of Systems Const Denies chills, Denies fatigue, Denies fever(s), Denies frequent falls, Denies weakness, Denies weight gain and Denies weight loss ENT Denies dizziness Card Denies chest pain, Denies leg edema, Denies lightheadedness, Denies palpitations, Denies dyspnea, Denies dyspnea on exertion, Denies orthopnea and Denies other (loss of consciousness) Resp Denies cough, Denies dyspnea and Denies dyspnea on exertion GI Denies hematochezia and Denies change in stool character Musc Denies abnormal gait, Denies muscle weakness, Denies numbness, Denies radiating pain into limb and Denies tingling Neuro Denies abnormal gait, Denies dizziness, Denies frequent falls, Denies numbness, Denies tingling and Denies weakness Endo Denies fatigue and Denies palpitations Physical Exam Vital Signs: Last Vital Signs Pulse 79 04/05/23 12:29 BP 126/80 04/05/23 12:29 BMI result Body Mass Index 33.4 Const General: cooperative, comfortable, no acute distress, alert, awake and well groomed Nutritional Appearance: overweight Orientation/consciousness: patient oriented x3 Limitations: no limitations Neck Neck: Yes trachea midline, Yes supple and Yes no JVD Resp Effort & Inspection: normal respiratory effort Auscultation: clear to auscultation bilaterally Cardio Jugular venous distension: no JVD Rhythm: abnormal rhythm irregularly irregular Heart sounds: S1 normal heart sound present and S2 normal heart sound present GI Auscultation: normal bowel sounds Skin General skin exam: no rashes or lesions noted Neuro General: patient oriented x3 and no focal motor deficits Extrem General: Yes no clubbing, cyanosis or edema Psych Appearance: grossly normal Office Procedures EKG Details: EKG shows atrial fibrillation with complete right bundle-branch block with ST T wave changes which could suggest repolarization abnormality [id number], Complete Assessment & Plan Assessment & Plan (1) Chronic atrial fibrillation: Comment: Asymptomatic chronic atrial fibrillation, rate control. Severe left atrial enlargement. Fail rhythm control approach Code(s): I48.20 - Chronic atrial fibrillation, unspecified Plan: Chronic rate control atrial fibrillation without any overt symptoms or signs of cardiac decompensation. Continue rate control approach. Currently on metoprolol therapy. Importance rate control was discussed. Continue full oral anticoagulation, currently on Eliquis 5 mg b.i.d.. Semi annual renal function test is recommended. CHADSVASc score of 4. (2) HTN (hypertension): Code(s): I10 - Essential (primary) hypertension Plan: Hypertension which is currently well optimized advised to monitor blood pressure at home maintain a log. Goal blood pressure less than 130/84. Also aggressive control of diabetes recommended goal hemoglobin A1c less than 7%. Low-salt diet was discussed advised to maintain activity level as tolerated. Will follow up in the clinic in 1 year's time, sooner p.r.n.. Thank you for allowing me to partake in her care Coding Level of Care Code Est Pt Level 4 (05548) Diagnoses Chronic atrial fibrillation I48.20 HTN (hypertension) I10 CPT Codes EKG - CPT: 12995-[id number], Complete ([id number])
[2023-04-05 12:29] VITALS: BP 126/80; PULSE 79; BMI 33.4
== END 2023-04-05 12:50 | disposition home or self-care (01) ==
PROVIDERS: PCP Nurse Practitioner Family; Referring Provider Nurse Practitioner Family; Visit Provider Internal Medicine Cardiovascular Disease
DX: I48.20 Chronic atrial fibrillation, unspecified (principal); I10 Essential (primary) hypertension
CPT/HCPCS: 93010; 99214

== ENCOUNTER → 2023-04-05 11:58 | Outpatient (BNVA) | payer MEDICARE, SELFPAY | PROVIDERS: PCP Nurse Practitioner Family; Referring Provider Nurse Practitioner Family; Visit Provider Internal Medicine Cardiovascular Disease | DX: I48.20 Chronic atrial fibrillation, unspecified (principal); I10 Essential (primary) hypertension; Z79.01 Long term (current) use of anticoagulants; Z79.899 Other long term (current) drug therapy | CPT/HCPCS: 93005; 99212 ==

== ENCOUNTER 2023-04-26 06:05 | Outpatient (REF) | payer MEDICARE, SELFPAY ==
[2023-04-26 11:37] LABS: Appearance Urine Clear; Color Urine Yellow; Glucose Urine UA Negative (Negative); Leukocyte Esterase Urine Trace (Negative); Nitrite Urine Negative (Negative); Specific Gravity - Urine 1.015 (1.005-1.025); UMIC TRIGGER UACC YES; Urine Blood Negative (Negative); Urine Ketones Negative (Negative); Urine Protein 100 (2+) mg/dL (Neg-Trace)
[2023-04-26 11:41] LABS: Bacteria Urine Trace (None Seen); Hyaline Casts Urine 0-2 /LPF (0-2); RBC Urine 0-2 /HPF (0-2); UACC Culture Trigger YES
== END 2023-04-26 06:06 | disposition home or self-care (01) ==
LOC: HO.HMGCLDS 06:05
PROVIDERS: PCP Nurse Practitioner Family; Visit Provider Nurse Practitioner Family
DX: E11.65 Type 2 diabetes mellitus with hyperglycemia (principal); R82.90 Unspecified abnormal findings in urine
CPT/HCPCS: 81001; 87086

== ENCOUNTER 2023-04-29 08:24 | Outpatient (AMB) | payer MEDICARE, SELFPAY ==
[2023-04-29 08:44] VITALS: BP 130/80; PULSE 57; O2SAT 99; BMI 34.3
--- NOTE | 2023-04-29 08:44 | MHC.PC.OV ---
Vital Signs 04/29/23 08:44 Height 5 ft 5 in Weight 206 lb BMI 34.3 BP 130/80 Blood Pressure Location Lt brachial Position Sitting Pulse 57 Pulse Source Pulse Oximeter Pulse Oximetry (%) 99 Oxygen Delivery Method Room Air Intake Visit Reasons: 3m follow up Allergies Iodinated Contrast Media [IV Dye, Iodine Containing] Allergy (Severe, Verified 04/29/23 08:47) ANAPHYLAXIS shellfish derived [SHELLFISH DERIVED] Allergy (Severe, Verified 04/29/23 08:47) ANAPHYLAXIS diltiazem [Cardizem] Allergy (Unknown, Verified 04/29/23 08:47) sob and leg swelling gabapentin [GABAPENTIN] Allergy (Unknown, Verified 04/29/23 08:47) UNKNOWN-PATIENT REFUSES gadobutrol [Gadavist] Allergy (Unknown, Verified 04/29/23 08:47) Unknown iopromide [Ultravist] Allergy (Unknown, Verified 04/29/23 08:47) Unknown Tobacco use date assessed: 04/29/23 Fall risk assessment: No Falls in past year Last assessed Fall Risk: 04/29/23 Dental Screening Dental Screen Date: 04/29/23 Did you have a dental visit in the last 12 months?: Yes Did you have a dental problem in the last 6 months where you did not have access to dental care?: No Was dental information given to patient?: Patient has dentist HPI 3m follow up HPI Details Pt is a diabetic. A1c in office today is 10.3. Microalbumin is up to date. Denies polyuria, polydipsia, and neuropathy. Pt denies any signs and symptoms of hypoglycemia and does know how to correct it. Pt adamantly refuses any new medications, she knows her A1C will be high. Eye exam is up to date according to pt. Refuses colon screen, mammo, and bone density. 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 HTN (hypertension) Hypercholesteremia Immunization consent not given Mammogram declined Sciatica of right side Tick bite Surgical History H/O lumbosacral spine surgery History of cholecystectomy Family History Father Prostate cancer Mother Kidney disease Social History Housing: House Alcohol intake: never Patient Tobacco Use Status: Never used Tobacco e-Cigarette/Vaping Use: Never Used service: No Current occupational status: retired Current occupation: Rt handed Cognitive needs: No Hearing needs: No Vision needs: No Questionnaire Thrive Questionnaire Date Thrive assessed: 10/22/22 AUDIT C Alcohol Use Questionnaire (AUDIT-C) 1. How often do you have a drink containing alcohol?: Never Total Score: 0 YONY-7 AMB Questionnaire YONY-7 Date YONY - 7 assessed: 10/22/22 Source: Developed by Drs. Pasha Johnson, Danii Mann, Farhad Reed and colleagues, with an educational sandeep from [employer]. Review of Systems Const Reports as per HPI Physical exam (Primary Care) Vital Signs: Last Vital Signs Pulse 57 04/29/23 08:44 BP 130/80 04/29/23 08:44 Pulse Ox 99 04/29/23 08:44 Oxygen Delivery Method Room Air 04/29/23 08:44 BMI result Body Mass Index 34.3 Tobacco/Smoking Status: Tobacco use Status Tobacco use date assessed 04/29/23 04/29/23 08:51 Patient Tobacco Use Status Never used Tobacco 04/29/23 08:46 e-Cigarette/Vaping Use Never Used 04/29/23 08:46 Thrive Assessment: Date of Thrive Assessment Date Thrive assessed 10/22/22 04/29/23 08:46 Const General: cooperative Nutritional Appearance: obese Orientation/consciousness: patient oriented x3 Resp Effort & Inspection: normal respiratory effort Auscultation: clear to auscultation bilaterally Cardio Rate: regular rate Rhythm: abnormal rhythm irregularly irregular Heart sounds: S1 normal heart sound present and S2 normal heart sound present Neuro General: patient oriented x3 Extrem Other: partially amputated right 3rd toe, large callous to plantar aspect under 1st MTP joint, medial deviation of big toe, onychomycosis noted bilat, + sensation with use of monofilament bilat Psych Appearance: grossly normal Mental Status: mental status grossly normal Speech and movement: Normal speech and movement present Affect: normal affect Attitude: cooperative Thought process: Normal thought process present Thought content: Normal thought content present Insight: Good insight present (Psych) Judgement: Good judgement present (Psych) Results AMB Hemoglobin A1c AMB Hemoglobin A1c 10.3 % Last Edit by Krupa Diaz CMA on 04/29/23 09:25 Results Reviewed Results Reviewed: Laboratory Last Values Hgb A1c (Clinic) 10.3 % (4.0-6.0) H 04/29/23 09:24 Assessment and Plan Assessment & Plan (1) Uncontrolled diabetes mellitus with hyperglycemia: Code(s): E11.65 - Type 2 diabetes mellitus with hyperglycemia Plan The patient agreed to the use of a medical device engineer for this encounter. Scribed for SHELDON Carrillo by Tia Simpson medical device engineer, on 04/29/2023 at 09:00 EST. Orders: Orders AMB Hemoglobin A1c Today E11.65 - Type 2 diabetes mellitus with hyperglycemia Coding Level of Care Code Est Pt Level 3 (81693) Diagnoses Uncontrolled diabetes mellitus with hyperglycemia E11.65
== END 2023-04-29 09:16 | disposition home or self-care (01) ==
PROVIDERS: PCP Nurse Practitioner Family; Visit Provider Nurse Practitioner Family
DX: E11.65 Type 2 diabetes mellitus with hyperglycemia (principal)
CPT/HCPCS: 83036; 99213

== ENCOUNTER 2023-08-10 06:01 | Outpatient (REF) | payer MEDICARE, SELFPAY ==
[2023-08-10 11:23] LABS: MANUAL DIFF FLAG NO
[2023-08-10 11:25] LABS: Basophils Percent Auto 0.6 % (0-2); Eosinophils Absolute Auto 0.2 X10*3/uL (0.0-0.4); Eosinophils Percent Auto 2.6 % (0-4); Hematocrit 44.6 % (37.0-47.0); Hemoglobin 14.4 g/dl (12.0-16.0); Imm Gran Abs Auto 0.02 X10*3/uL (0.00-0.03); Imm Gran Pct Auto 0.3 % (0.0-0.4); Lymphocytes Absolute Auto 2.1 X10*3/uL (1.2-4.9); Lymphocytes Percent Auto 32.2 % (20-40); Mean Corpuscular HGB Conc 32.3 g/dl (31.0-35.0); Mean Corpuscular Hemoglobin 29.3 pg (27.0-33.0); Mean Corpuscular Volume 90.8 fL (80.0-98.0); Mean Platelet Volume 11.3 fL (9.4-12.3); Monocytes Absolute Auto 0.6 X10*3/uL (0.1-1.2); Monocytes Percent Auto 9.3 % (2-11); Neutrophils Absolute Auto 3.7 x10*3/uL (2.0-8.3); Platelet Count 189 X10*3/uL (160-400); Red Blood Count 4.91 X10*6/uL (4.20-5.50); Red Cell Distribution Width 12.6 % (11.0-16.0); White Blood Count 6.7 X10*3/uL (4.8-10.8)
[2023-08-10 11:39] LABS: Estimated Average Glucose 252 mg/dL; Hemoglobin A1c % 10.4 % (<6.0)
[2023-08-10 11:45] LABS: Appearance Urine Clear; Color Urine Yellow; Glucose Urine UA Negative (Negative); Leukocyte Esterase Urine Negative (Negative); Nitrite Urine Negative (Negative); PH 5.5 (5.0-9.0); Specific Gravity - Urine 1.015 (1.005-1.025); UMIC TRIGGER UACC YES; Urine Blood Negative (Negative); Urine Ketones Trace mg/dL (Negative); Urine Protein 100 (2+) mg/dL (Neg-Trace)
[2023-08-10 11:50] LABS: Bacteria Urine None Seen (None Seen); Hyaline Casts Urine 0-2 /LPF (0-2); RBC Urine 0-2 /HPF (0-2); WBC Urine 0-5 /HPF (0-5)
[2023-08-10 11:53] LABS: Alanine Aminotransferase 17 U/L (0-31); Albumin Level 4.4 g/dL (3.5-5.0); Alkaline Phosphatase 70 U/L (39-117); Anion Gap 14 (12-20); Aspartate Amino Transferase 22 U/L (5-31); Bilirubin Total 0.6 mg/dL (0.0-1.0); Blood Urea Nitrogen 26 mg/dL (9-16); Calcium 9.7 mg/dL (8.4-10.2); Carbon Dioxide 24 mmol/L (22-29); Chloride 102 mmol/L (96-108); Cholesterol 148 mg/dL (<200); Estimated Glomerular Filt Rate 39; Glucose Fasting 160 mg/dL (60-99); HDL Cholesterol 31 mg/dL (>40); LDL Cholesterol Calculated 97 mg/dL (<100); Potassium 4.3 mmol/L (3.3-5.1); Sodium 136 mmol/L (135-145); Triglycerides 103 mg/dL (<150)
[2023-08-10 11:57] LABS: TSH reflex Free T4 3.12 uIU/mL (0.32-4.0)
[2023-08-10 12:21] LABS: Creatinine Urine 107.63 mg/dL
[2023-08-10 12:38] LABS: Microalbum/Creatinine Ratio Ur 484.9 ug/mg cr (<30)
== END 2023-08-10 06:02 | disposition home or self-care (01) ==
LOC: HO.HMGCLDS 06:01
PROVIDERS: PCP Nurse Practitioner Family; Visit Provider Internal Medicine
DX: E11.65 Type 2 diabetes mellitus with hyperglycemia (principal); I48.20 Chronic atrial fibrillation, unspecified; I10 Essential (primary) hypertension
CPT/HCPCS: 36415; 80053; 80061; 81001; 82043; 82570; 83036; 84443; 85025

== ENCOUNTER 2023-08-19 12:52 | Outpatient (AMB) | payer MEDICARE, SELFPAY ==
--- NOTE | 2023-08-19 13:05 | MHC.PC.OV ---
Vital Signs 08/19/23 13:08 Height 5 ft 5 in Weight 194 lb BMI 32.3 BP 138/98 H Blood Pressure Location Rt brachial Position Sitting Pulse 72 Pulse Source Pulse Oximeter Pulse Oximetry (%) 100 Oxygen Delivery Method Room Air Intake Visit Reasons: 3 month f/u r/s from 07/15 Allergies Iodinated Contrast Media [IV Dye, Iodine Containing] Allergy (Severe, Verified 08/19/23 13:09) ANAPHYLAXIS shellfish derived [SHELLFISH DERIVED] Allergy (Severe, Verified 08/19/23 13:09) ANAPHYLAXIS diltiazem [Cardizem] Allergy (Unknown, Verified 08/19/23 13:09) sob and leg swelling gabapentin [GABAPENTIN] Allergy (Unknown, Verified 08/19/23 13:09) UNKNOWN-PATIENT REFUSES gadobutrol [Gadavist] Allergy (Unknown, Verified 08/19/23 13:09) Unknown iopromide [Ultravist] Allergy (Unknown, Verified 08/19/23 13:09) Unknown Medication List - Last Reconciled 08/19/23 by ROSSY Nunes- apixaban (Eliquis) 5 mg PO BID metoprolol tartrate 100 mg (2 x 50 mg) PO BID 90 days Tobacco use date assessed: 04/29/23 Fall risk assessment: No Falls in past year Last assessed Fall Risk: 08/19/23 HPI 3 month f/u r/s from 07/15 HPI Details Pt is a diabetic. Last A1C was 10.4, microalbumin is up to date. Denies polyuria, polydipsia, and neuropathy. Pt denies any signs and symptoms of hypoglycemia and does know how to correct it. Pt reports that her blood sugar has been ranging from 120-180. Eye exam is up to date. Refuses ALESHA/ARB, statin, and any other medications. Pt sees a property administrator, refused foot exam today. Pt refuses to see a forge tender. Pt c/o right shoulder pain. She reports falling and landing on her shoulder. She has a hx of rotator cuff surgery. Will order XR and refer to PT. 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 HTN (hypertension) Hypercholesteremia Immunization consent not given Mammogram declined Sciatica of right side Tick bite Surgical History H/O lumbosacral spine surgery History of cholecystectomy Family History Father Prostate cancer Mother Kidney disease Social History Housing: House Alcohol intake: never Patient Tobacco Use Status: Never used Tobacco e-Cigarette/Vaping Use: Never Used service: No Current occupational status: retired Current occupation: Rt handed Cognitive needs: No Hearing needs: No Vision needs: No Questionnaire Thrive Questionnaire Date Thrive assessed: 10/22/22 YONY-7 AMB Questionnaire YONY-7 Date YONY - 7 assessed: 10/22/22 Source: Developed by Drs. Pasha Johnson, Danii Mann, Farhad Reed and colleagues, with an educational sandeep from [employer]. Review of Systems Const Reports as per HPI Physical exam (Primary Care) Vital Signs: Last Vital Signs Pulse 72 08/19/23 13:08 BP 138/98 H 08/19/23 13:08 Pulse Ox 100 08/19/23 13:08 Oxygen Delivery Method Room Air 08/19/23 13:08 BMI result Body Mass Index 32.3 Tobacco/Smoking Status: Tobacco use Status Tobacco use date assessed 04/29/23 08/19/23 13:07 Patient Tobacco Use Status Never used Tobacco 08/19/23 13:07 e-Cigarette/Vaping Use Never Used 08/19/23 13:07 Thrive Assessment: Date of Thrive Assessment Date Thrive assessed 10/22/22 08/19/23 13:07 Const General: cooperative Nutritional Appearance: obese Orientation/consciousness: patient oriented x3 Resp Effort & Inspection: normal respiratory effort Auscultation: clear to auscultation bilaterally Cardio Rate: regular rate Rhythm: abnormal rhythm irregularly irregular Heart sounds: S1 normal heart sound present and S2 normal heart sound present Neuro General: patient oriented x3 Extrem Other: refused foot exam, right shoulder: + neers, + major, + jobes Psych Appearance: grossly normal Mental Status: mental status grossly normal Speech and movement: Normal speech and movement present Affect: normal affect Attitude: cooperative Thought process: Normal thought process present Thought content: Normal thought content present Insight: Good insight present (Psych) Judgement: Good judgement present (Psych) Assessment and Plan Assessment & Plan (1) Right shoulder pain: Code(s): M25.511 - Pain in right shoulder Plan: XR ordered (2) Uncontrolled diabetes mellitus with hyperglycemia: Code(s): E11.65 - Type 2 diabetes mellitus with hyperglycemia Plan: Labs ordered (3) HTN (hypertension): Code(s): I10 - Essential (primary) hypertension Plan: refuses meds Plan The patient agreed to the use of a medical assistant per diem for this encounter. Scribed for SHELDON Carrillo by Tia [place] medical assistant per diem, on 08/19/2023 at 13:35 EST. Orders: Orders PT Evaluation and Treatment Today M25.511 - Pain in right shoulder TSH reflex Free T4 Today E11.65 - Type 2 diabetes mellitus with hyperglycemia Hemoglobin A1c Today E11.65 - Type 2 diabetes mellitus with hyperglycemia XR shoulder RT min 2V Today M25.511 - Pain in right shoulder Complete Blood Count Auto Diff Today E11.65 - Type 2 diabetes mellitus with hyperglycemia Comprehensive [place]. Panel Fast Today E11.65 - Type 2 diabetes mellitus with hyperglycemia UA CC w/rflx Micro + Cult Today E11.65 - Type 2 diabetes mellitus with hyperglycemia Lipid Panel Today E11.65 - Type 2 diabetes mellitus with hyperglycemia Coding Level of Care Code Est Pt Level 3 (86239) Diagnoses Right shoulder pain M25.511 Uncontrolled diabetes mellitus with hyperglycemia E11.65 HTN (hypertension) I10
[2023-08-19 13:08] VITALS: BP 138/98; PULSE 72; O2SAT 100; BMI 32.3
== END 2023-08-19 14:18 | disposition home or self-care (01) ==
PROVIDERS: PCP Nurse Practitioner Family; Visit Provider Nurse Practitioner Family
DX: M25.511 Pain in right shoulder (principal); E11.65 Type 2 diabetes mellitus with hyperglycemia; I10 Essential (primary) hypertension
CPT/HCPCS: 99213

== ENCOUNTER 2023-08-19 13:53 | Outpatient (REF) | payer MEDICARE, SELFPAY | END 2023-08-19 13:54 | disposition home or self-care (01) | LOC: HO.HMGCX 13:53 | PROVIDERS: PCP Nurse Practitioner Family; Visit Provider Nurse Practitioner Family | DX: M25.511 Pain in right shoulder (principal) | CPT/HCPCS: 73030 ==

== ENCOUNTER 2023-10-02 09:21 | Outpatient (AMB) | payer MEDICARE, SELFPAY ==
[2023-10-02 09:55] VITALS: BP 142/90; PULSE 81; TEMP 37.1; O2SAT 95
--- NOTE | 2023-10-02 09:55 | MHC.OFFWIV ---
Intake Vital Signs 10/02/23 09:55 Height 5 ft 5 in BMI Reason not done Patient refused/unable BP 142/90 H Blood Pressure Location Rt brachial Position Sitting Pulse 81 Pulse Source Pulse Oximeter Temp 98.8 F Temp Source Oral Pulse Oximetry (%) 95 Intake Visit Reasons: EP cough congestion runny nose chills Intake Note: pt is here for c.o cough, congestion, runny nose, sore throat Patient Tobacco Use Status: Never used Tobacco Allergies Iodinated Contrast Media [IV Dye, Iodine Containing] Allergy (Severe, Verified 10/02/23 09:56) ANAPHYLAXIS shellfish derived [SHELLFISH DERIVED] Allergy (Severe, Verified 10/02/23 09:56) ANAPHYLAXIS diltiazem [Cardizem] Allergy (Unknown, Verified 10/02/23 09:56) sob and leg swelling gabapentin [GABAPENTIN] Allergy (Unknown, Verified 10/02/23 09:56) UNKNOWN-PATIENT REFUSES gadobutrol [Gadavist] Allergy (Unknown, Verified 10/02/23 09:56) Unknown iopromide [Ultravist] Allergy (Unknown, Verified 10/02/23 09:56) Unknown Do you need a note to return to daycare/school/sports/work: No HPI HPI Comments History of Present Illness Details This is a 73-year-old female who presents to the office complaining of viral URI symptoms x1 day. She states she was feeling well yesterday; however, she started to develop postnasal drip, sore throat, and a dry cough. She denies any chest pain or shortness of breath. She denies any fevers or chills. She denies any abdominal pain or nausea/vomiting/diarrhea. She denies any sputum production. 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 HTN (hypertension) Hypercholesteremia Immunization consent not given Mammogram declined Sciatica of right side Tick bite Surgical History H/O lumbosacral spine surgery History of cholecystectomy Family History Father Prostate cancer Mother Kidney disease Social History Housing: House Alcohol intake: never Patient Tobacco Use Status: Never used Tobacco e-Cigarette/Vaping Use: Never Used service: No Current occupational status: retired Current occupation: Rt handed Cognitive needs: No Hearing needs: No Vision needs: No Review of Systems Const All systems reviewed & are unremarkable except as noted in HPI and below Reports no additional complaints Eyes Reports no additional complaints ENT Reports no additional complaints Card Reports no additional complaints Resp Reports no additional complaints GI Reports no additional complaints Reports no additional complaints Musc Reports no additional complaints Skin/Breast Reports system reviewed and no additional complaints, except as documented Neuro Reports no additional complaints Psych Reports no additional complaints Endo Reports no additional complaints Cheko/Lymph Reports no additional complaints Aller/Immun Reports no additional complaints Physical Exam Vital Signs: Last Vital Signs Temp 98.8 F 10/02/23 09:55 Pulse 81 10/02/23 09:55 BP 142/90 H 10/02/23 09:55 Pulse Ox 95 10/02/23 09:55 Const Other: Vital signs reviewed. Constitutional: Non-toxic appearing. No acute distress. Well-developed and well-nourished. HEENT: Normocephalic and atraumatic. Tympanic membranes without erythema, edema, or bulging bilaterally. External auditory canals without erythema or edema bilaterally. Moist mucous membranes. No pharyngeal erythema or exudates. + Post-nasal drip. Skin: Warm and dry. No rashes or lesions noted. Neck: Full and painless range of motion. No cervical lymphadenopathy. Cardio: Regular rate and rhythm. No murmurs, gallops, or rubs. No lower extremity edema. No JVD. Pulmonary: No respiratory distress. No accessory muscle usage. Clear to auscultation bilaterally without wheezing, crackles, or rhonchi. Frequent hacking cough. Gastrointestinal: Soft, nontender, and nondistended in all 4 quadrants. Normoactive bowel sounds in all 4 quadrants. Genitourinary: No CVA tenderness. Musculoskeletal: Normal range of motion in joints throughout the body. No deformity or other signs of injury. Neuro: Alert and oriented x4. Cranial nerves 2-12 grossly intact. No focal deficits appreciated. Psych: Normal mood and affect. Results AMB Rapid Strep AMB Rapid Strep Negative Last Edit by León Aparicio CMA on 10/02/23 10:09 Results Reviewed Results Reviewed: Laboratory Last Values Strep Scn Rapid Clinic Negative 10/02/23 10:09 Assessment & Plan Assessment & Plan (1) Viral URI with cough: Code(s): J06.9 - Acute upper respiratory infection, unspecified Plan: This is a 73-year-old female who presented to the office complaining of a dry cough, sore throat, and postnasal drip x1 day. Her physical exam is benign with normal lung sounds bilaterally. She has no posterior pharyngeal erythema or exudates but she does have some visible postnasal drip. The patient also has a frequent dry hacking cough without sputum production. Given her frequent hacking cough, I have ordered a chest x-ray to evaluate for acute cardiopulmonary process. Upon my read, her chest x-ray is negative for pneumonia, pleural effusion, pneumothorax, or congestive heart failure. COVID/flu/RSV sent. I sent a prescription for p.o. benzonatate 100 mg 3 times daily as needed for cough and recommended patient utilize [id number] guaifenesin for mucolytic. Recommended symptomatic management including rest, increased fluids, advil/tylenol for pain/fever, and over the counter throat lozenges/decongestants. Patient advised to follow up here or go to the emergency room for worsening/persistent symptoms. Patient verbalized understanding and is agreeable with the plan. Orders: Orders XR chest 2V Today R05.9 - Cough, unspecified AMB Rapid Strep Screen Today Z13.9 - Encounter for screening, unspecified SARS-CoV2/FLU/RSV Today R09.89 - Other specified symptoms and signs involving the circulatory and respiratory systems Medications: New benzonatate 100 mg PO TID PRN 14 caps 0RF cough Coding Level of Care Code Est Pt Level 3 (42481) Diagnoses Viral URI with cough J06.9
== END 2023-10-02 11:09 | disposition home or self-care (01) ==
PROVIDERS: PCP Nurse Practitioner Family; Visit Provider Physician Assistant Medical
DX: J06.9 Acute upper respiratory infection, unspecified (principal)
CPT/HCPCS: 87880; 99213

== ENCOUNTER 2023-10-02 10:28 | Outpatient (REF) | payer MEDICARE, SELFPAY ==
--- NOTE | ~2023-10-02 | XR_ITS ---
EXAMINATION: XR CHEST CLINICAL INFORMATION: Cough COMPARISON: Previous chest x-ray February 2019 TECHNIQUE: 2 views of the chest were obtained. FINDINGS: Cardiac silhouette is upper normal in size but stable. Mitral annular calcification. Hilar and mediastinal contours are unremarkable. Lungs are clear. No pleural effusion or pneumothorax. Degenerative changes of the spine. XR/XR chest 2V IMPRESSION: No evidence for acute disease in the chest.
[2023-10-02 13:11] LABS: Influenza A PCR POSITIVE (Negative); Influenza B PCR NEGATIVE (Negative); Resp Syncy Virus RNA Qual PCR NEGATIVE (Negative); SARS COV2 PCR INHOUSE NEGATIVE (Negative)
== END 2023-10-02 10:29 | disposition home or self-care (01) ==
LOC: HO.HMGCX 10:28
PROVIDERS: PCP Nurse Practitioner Family; Visit Provider Physician Assistant Medical
DX: R05.9 Cough, unspecified (principal); R09.89 Other specified symptoms and signs involving the circulatory and respiratory systems; Z11.52 Encounter for screening for COVID-19; Z20.828 Contact with and (suspected) exposure to other viral communicable diseases
CPT/HCPCS: 0241U; 71046

== ENCOUNTER 2023-10-04 08:17 | Outpatient (AMB) | payer MEDICARE, SELFPAY ==
--- NOTE | 2023-10-04 08:31 | AM.OFFWIN_ITS ---
Intake Vital Signs 10/04/23 08:36 Height 5 ft 5 in BP 136/78 Blood Pressure Location Lt brachial Position Sitting Pulse 76 Pulse Source Pulse Oximeter Temp 98.9 F Temp Source Oral Pulse Oximetry (%) 98 Intake Visit Reasons: EP Cough, Congestion (masked) Patient Tobacco Use Status: Never used Tobacco Allergies Iodinated Contrast Media [IV Dye, Iodine Containing] Allergy (Severe, Verified 10/04/23 08:37) ANAPHYLAXIS shellfish derived [SHELLFISH DERIVED] Allergy (Severe, Verified 10/04/23 08:37) ANAPHYLAXIS diltiazem [Cardizem] Allergy (Unknown, Verified 10/04/23 08:37) sob and leg swelling gabapentin [GABAPENTIN] Allergy (Unknown, Verified 10/04/23 08:37) UNKNOWN-PATIENT REFUSES gadobutrol [Gadavist] Allergy (Unknown, Verified 10/04/23 08:37) Unknown iopromide [Ultravist] Allergy (Unknown, Verified 10/04/23 08:37) Unknown Do you need a note to return to daycare/school/sports/work: No HPI HPI Comments History of Present Illness Details 0836 73-year-old female history of obesity, h ypertension, diabetes presenting for evaluation of cough, patient was told she was flu positive few days ago she reports she still having a cough and she is concerned about it. She is taking benzonate for it with little to no relief patient is wonding if she can go to PT on wednesday. No CP, nausea, vomiting, diarrhea, headache, dizziness, vision changes, fevers, chills PE w/ slight expiratory wheezing b/l. History and physical exam consistent with influenza a as patient was diagnosed with with possible bronchitis but likely viral. Unlikely pneumonia, PE, acute respiratory distress. Plan at this time will discharge patient home with albuterol inhaler. Educated patient on diagnosis and treatment plan, answered all question, patient verbalizes understanding. At this time patient will be discharged home, advised to return with new or worsening symptoms. Educated on worrisome signs and symptoms and when to return. At this time I feel comfortable discharge home. 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 Anxiety Sciatica of right side Chronic atrial fibrillation Diabetes mellitus Hypercholesteremia HTN (hypertension) Surgical History H/O lumbosacral spine surgery History of cholecystectomy Family History Father Prostate cancer Mother Kidney disease Social History Housing: House Alcohol intake: never Patient Tobacco Use Status: Never used Tobacco e-Cigarette/Vaping Use: Never Used service: No Current occupational status: retired Current occupation: Rt handed Cognitive needs: No Hearing needs: No Vision needs: No Review of Systems Const All systems reviewed & are unremarkable except as noted in HPI and below Physical Exam Vital Signs: Stable vitals Appearance: Alert.? Oriented X3.? No acute distress.? Head: Normocephalic, atraumatic, no step-offs or deformities Eyes: Pupils equal, round and reactive to light.? ENT: Pharynx normal.? Neck: Normal inspection.? Neck supple.? CVS: Normal heart rate and rhythm.? Pulses normal.? Respiratory: No respiratory distress.? Breath sounds w/ slight expiratory wheezing b/l. .? Abdomen: Soft and nontender.? Skin: Skin warm and dry.? Normal skin color.? Normal skin turgor.? Extremities: No lower extremity edema.? No calf ttp. 5/5 strength to bilateral upper and lower extremities Neuro: Oriented X 3.? No motor deficit.? No sensory deficit. CN 2-12 intact Assessment & Plan Assessment & Plan (1) Influenza A: Code(s): J10.1 - Influenza due to other identified influenza virus with other respiratory manifestations Plan Take your medications as prescribed. If you were prescribed antibiotics today, it is important that you take your medication to their entirety, do not skip any doses, do not finish them early. Follow-up with your primary care provider this week. Return to the emergency department with new or worsening symptoms. Such as fevers, chills, chest pain, shortness of breath, nausea, vomiting, dizziness, headache, vision changes, lethargy In case of emergency call 911 Medications: New albuterol sulfate 90 mcg/actuation 2 puffs inhalation Q6H PRN 6.7 grams 0RF shortness of breath or wheezing Coding Level of Care Code Est Pt Level 3 (87883) Diagnoses Influenza A J10.1
[2023-10-04 08:36] VITALS: BP 136/78; PULSE 76; TEMP 37.2; O2SAT 98
== END 2023-10-04 08:48 | disposition home or self-care (01) ==
PROVIDERS: PCP Nurse Practitioner Family; Visit Provider Physician Assistant
DX: J10.1 Influenza due to other identified influenza virus with other respiratory manifestations (principal)
CPT/HCPCS: 99213

== ENCOUNTER 2023-10-18 08:01 | Outpatient (AMB) | payer MEDICARE, SELFPAY ==
[2023-10-18 08:07] VITALS: BP 138/78; PULSE 74; TEMP 36.8; O2SAT 97; BMI 31.9
--- NOTE | 2023-10-18 08:07 | AM.OFFWIN_ITS ---
Intake Vital Signs 10/18/23 08:07 Height 5 ft 5 in Weight 192 lb BMI 31.9 BP 138/78 Blood Pressure Location Lt brachial Position Sitting Pulse 74 Pulse Source Pulse Oximeter Temp 98.2 F Temp Source Oral Pulse Oximetry (%) 97 Intake Visit Reasons: EP Cough, Mucus Intake Note: pt is here for c/o cough and spitting up colored phlem Patient Tobacco Use Status: Never used Tobacco Allergies Iodinated Contrast Media [IV Dye, Iodine Containing] Allergy (Severe, Verified 10/18/23 08:08) ANAPHYLAXIS shellfish derived [SHELLFISH DERIVED] Allergy (Severe, Verified 10/18/23 08:08) ANAPHYLAXIS diltiazem [Cardizem] Allergy (Unknown, Verified 10/18/23 08:08) sob and leg swelling gabapentin [GABAPENTIN] Allergy (Unknown, Verified 10/18/23 08:08) UNKNOWN-PATIENT REFUSES gadobutrol [Gadavist] Allergy (Unknown, Verified 10/18/23 08:08) Unknown iopromide [Ultravist] Allergy (Unknown, Verified 10/18/23 08:08) Unknown Do you need a note to return to daycare/school/sports/work: No HPI HPI Comments History of Present Illness Details Patient presents to the walk in for persistent cough for over 2 weeks. Diagnosed with Flu A 10/02/2023 Was using Benzonatate with some effect but has run out Using albuterol inhaler as needed reports cough remains, productive of clear sputum Denies fever, chest pain, shortness of breath, palpitations, syncope, weakness Denies headache, ear pain, sore throat. 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 Anxiety Sciatica of right side Chronic atrial fibrillation Diabetes mellitus Hypercholesteremia HTN (hypertension) Surgical History H/O lumbosacral spine surgery History of cholecystectomy Family History Father Prostate cancer Mother Kidney disease Social History Housing: House Alcohol intake: never Patient Tobacco Use Status: Never used Tobacco e-Cigarette/Vaping Use: Never Used service: No Current occupational status: retired Current occupation: Rt handed Cognitive needs: No Hearing needs: No Vision needs: No Review of Systems Const All systems reviewed & are unremarkable except as noted in HPI and below Physical Exam Vital Signs: BMI result Body Mass Index 31.9 General: awake, alert, oriented. Answers questions appropriately. Fully engaged in examination. Skin: warm, dry, intact HEENT: TMs intact bilaterally, no redness. Posterior pharynx without erythema or exudate. Sclera without icterus or injection. Cardiac: External chest normal in appearance. Respiratory: +cough. LSCTAB. Abdomen: without gross distension. Neurological: Oriented to person, place, time and situation. Thought process intact. Psychiatric: Appropriate mood and affect. Good judgment and insight. Results Reviewed Results Reviewed: 10/02/23 CXR FINDINGS: Cardiac silhouette is upper normal in size but stable. Mitral annular calcification. Hilar and mediastinal contours are unremarkable. Lungs are clear. No pleural effusion or pneumothorax. Degenerative changes of the spine. IMPRESSION: No evidence for acute disease in the chest. Assessment & Plan Assessment & Plan (1) URI (upper respiratory infection): Code(s): J06.9 - Acute upper respiratory infection, unspecified Plan Prednisone 40mg po BID X 5 days continue with albuterol inhaler as prescribed C/W Benzonatate 100mg po bid as needed Rest, drink plenty of fluids, tylenol or motrin as needed. Follow up with pcp or in clinic for any new or worsening symptoms. Go to ER for shortness of breath, chest pain, palpitations, weakness, dizziness. Medications: New prednisone 40 mg (2 x 20 mg) PO DAILY 10 tabs 0RF 5 days benzonatate 100 mg PO BID PRN 20 caps 0RF cough Coding Level of Care Code Est Pt Level 3 (49881) Diagnoses URI (upper respiratory infection) J06.9
== END 2023-10-18 10:35 | disposition home or self-care (01) ==
PROVIDERS: PCP Nurse Practitioner Family; Visit Provider Registered Nurse Emergency
DX: J06.9 Acute upper respiratory infection, unspecified (principal)
CPT/HCPCS: 99213

== ENCOUNTER 2023-10-25 09:17 | Outpatient (AMB) | payer MEDICARE, SELFPAY ==
--- NOTE | 2023-10-25 09:36 | A.OFFPC_ITS ---
Vital Signs 10/25/23 09:40 Height 5 ft 5 in Weight 193 lb 6 oz BMI 32.2 BP 130/86 Blood Pressure Location Rt brachial Position Sitting Pulse 55 Pulse Source Pulse Oximeter Pulse Oximetry (%) 100 Oxygen Delivery Method Room Air Intake Visit Reasons: Pre Op Cataract Surgery Intake Note: Pt is here for pre-op Cataract surgery both eyes last A1c was 08/10/23 of 10.4 Allergies Iodinated Contrast Media [IV Dye, Iodine Containing] Allergy (Severe, Verified 10/25/23 10:43) ANAPHYLAXIS shellfish derived [SHELLFISH DERIVED] Allergy (Severe, Verified 10/25/23 10:43) ANAPHYLAXIS diltiazem [Cardizem] Allergy (Unknown, Verified 10/25/23 10:43) sob and leg swelling gabapentin [GABAPENTIN] Allergy (Unknown, Verified 10/25/23 10:43) UNKNOWN-PATIENT REFUSES gadobutrol [Gadavist] Allergy (Unknown, Verified 10/25/23 10:43) Unknown iopromide [Ultravist] Allergy (Unknown, Verified 10/25/23 10:43) Unknown Medication List - Last Reconciled 10/25/23 by ROSSY Howard apixaban (Eliquis) 5 mg PO BID metoprolol tartrate 100 mg (2 x 50 mg) PO BID 90 days Tobacco use date assessed: 10/25/23 Fall risk assessment: No Falls in past year Last assessed Fall Risk: 10/25/23 Dental Screening Dental Screen Date: 10/25/23 Did you have a dental visit in the last 12 months?: Yes Did you have a dental problem in the last 6 months where you did not have access to dental care?: No Was dental information given to patient?: Patient has dentist HPI HPI Comments History of Present Illness Details Patient is a 73-year-old female here for preop clearance for cataract surgery. Patient has a past medical history significant for diabetes type 2, hypertension, hyperlipidemia, chronic AFib. She is currently taking Eliquis and metoprolol. She is currently not taking any medication for her diabetes. Her last in office A1c was 10.4, she is due for redrawn 1 month. Patient has not been cleared for surgery at this time due to A1c elevation at 10.4. The patient does not take medication for her diabetes, but states she can get her A1c level down with strict dietary restrictions. She will have a follow-up appointment with her primary care provider in October, will need A1c redrawn, if improved can be cleared for surgery. 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 1. Little interest or pleasure in doing things: not at all 2. Feeling down, depressed, or hopeless: not at all 3. Trouble falling or staying asleep, or sleeping too much: not at all 4. Feeling tired or having little energy: not at all 5. Poor appetite or overeating: not at all 6. Feeling bad about yourself - or that you are a failure or have let yourself or your family down: not at all 7. Trouble concentrating on things, such as reading the newspaper or watching television: not at all 8. Moving or speaking so slowly that other people could have noticed. Or the opposite - being so fidgety or restless that you have been moving around a lot more than usual: not at all 9. Thoughts that you would be better off or of hurting yourself in some way: not at all Total score: 0 Source: Developed by Drs. Pasha Johnson, Danii Mann, Farhad Reed and colleagues, with an educational sandeep from [employer]. Thrive Questionnaire Date Thrive assessed: 10/25/23 I am a: Patient What is your living situation today?: I have a steady place to live Within the past 12 months, did the food you bought not last and you didn't have the money to get more?: Never true Within the past 12 months, did you worry whether your food would run out before you got money to buy more?: Never true Do you have trouble paying for medicines?: No Do you have trouble getting transportation to medical appointments?: No Do you have trouble paying your heating and electricity bill?: No Do you have trouble taking care of your child, family member or friend?: No Do you have trouble with day-to-day activities such as bathing, preparing meals, shopping, managing finances, etc.?: No Are you currently unemployed and looking for a job?: No Are you interested in more education?: No THRIVE Score: 0 AUDIT C Alcohol Use Questionnaire (AUDIT-C) 1. How often do you have a drink containing alcohol?: Never Total Score: 0 YONY-7 AMB Questionnaire YONY-7 Date YONY - 7 assessed: 10/25/23 Feeling nervous, anxious, or on edge: 0 = Not at all Not being able to stop or control worryin = Not at all Worrying too much about different things: 0 = Not at all Trouble relaxin = Not at all Being so restless that it is hard to sit still: 0 = Not at all Becoming easily annoyed or irritable: 0 = Not at all Feeling afraid as if something awful might happen: 0 = Not at all Total YONY-7 score (0-4 normal; 5-9 mild; 10-14 moderate; 15-21 severe): 0 Source: Developed by Drs. Pasha Johnson, Danii Mann, Farhad Reed and colleagues, with an educational sandeep from [employer]. Review of Systems Const Details: Constitutional : No Weight loss, No Fever, No Chills, No Fatigue, No Malaise Cardiovascular : No Chest Pain, No SOB, No Dyspnea on Exertion, No Orthopnea, No Edema, No Palpitations Respiratory : No Cough, No Sputum, No Wheezing Neuro : No Weakness, No Numbness, No Dizziness, No Headache Psych : No Anxiety/Panic, No Depression Endocrine : No Polyuria, No Polydipsia All other systems reviewed and are negative Physical exam (Primary Care) Vital Signs: Last Vital Signs Pulse 55 10/25/23 09:40 BP 130/86 10/25/23 09:40 Pulse Ox 100 10/25/23 09:40 Oxygen Delivery Method Room Air 10/25/23 09:40 BMI result Body Mass Index 32.2 Tobacco/Smoking Status: Tobacco use Status Tobacco use date assessed 10/25/23 10/25/23 09:46 Patient Tobacco Use Status Never used Tobacco 10/25/23 09:36 e-Cigarette/Vaping Use Never Used 10/25/23 09:36 Thrive Assessment: Date of Thrive Assessment Date Thrive assessed 10/22/22 10/25/23 09:36 Const Other: Appearance: Alert.? Oriented X3.? No acute distress.? CVS: Patient in Afib. EKG performed in office. Respiratory: No respiratory distress.? Breath sounds normal.? Skin: Skin warm and dry.? Normal skin color.? Normal skin turgor.? Results Reviewed Results Reviewed: A1c % 10.4 H <6.0 % Hemoglobin A1C Reference Range Adults: 4.8 - 6.0 % Non diabetic: < 6.0 % Goal: < 7.0 % Additional Action Suggested: > 8.0 % Note: Hemoglobin A1c results are invalid for patients with abnormal amounts of HbF. Blood transfusions may impact the HbA1c concentration in the patient sample. Est. Avg. Gluc 252 mg/dL eAG = Estimated average glucose which is %A1C expressed as average glucose, using the formula of the H2B-Tbqvlel Average Glucose study (ADAG), Diabetes Care, Vol.31,#8, Mar. 2007 Assessment and Plan Assessment & Plan (1) Pre-op evaluation: Comment: Patient is here for preop clearance appointment. 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 Patient's A1c 10.4 not able to clear patient at this time. Patient has follow-up appointment in 3 weeks with her primary care provider will draw A1c then re-evaluate. Patient is agreeable to the plan. Code(s): Z01.818 - Encounter for other preprocedural examination Plan: Take your medications as prescribed. If you were prescribed antibiotics today, it is important that you take your medication to their entirety, do not skip any doses, do not finish them early. Follow-up with your primary care provider this week. Return to the emergency department with new or worsening symptoms. Such as fevers, chills, chest pain, shortness of breath, nausea, vomiting, dizziness, headache, vision changes, lethargy In case of emergency call 911 Plan Follow-up for preop visit 3 weeks. Orders: Orders AMB EKG-In Office Today Z13.6 - Encounter for screening for cardiovascular disorders Coding Level of Care Code Est Pt Level 3 (62062) Diagnoses Pre-op evaluation Z01.818
[2023-10-25 09:40] VITALS: BP 130/86; PULSE 55; O2SAT 100; BMI 32.2
== END 2023-10-25 12:19 | disposition home or self-care (01) ==
PROVIDERS: PCP Nurse Practitioner Family; Visit Provider Nurse Practitioner Primary Care
DX: E11.9 Type 2 diabetes mellitus without complications (principal); Z01.818 Encounter for other preprocedural examination
CPT/HCPCS: 93000; 99213

== ENCOUNTER 2023-11-05 07:00 | Outpatient (RCR) | payer MEDICARE, SELFPAY ==
--- NOTE | 2023-09-22 08:54 | MHC.PT.EP ---
[facility] [place] Office [place] [facility] [place] [facility] [address] Arcadio Nava [address] [phone] F: [phone] F: [phone] F: [phone] F: [phone] Physical Therapy Plan of Care Date of Evaluation: 09/22/23 Date of Surgery: Diagnosis: Pain in the R shoulder. Assessment: Patient is a 73 year old R handed female who presents with s/s consistent with R shoulder pain. She is retired and likes to stay busy taking care of her house and aunt. Patient past medical history includes back, shoulder, knee and foot surgery with complication. She has AFib and is on blood thinners. Current impairments include pain, posture, ROM, strength, activity tolerance and functional mobility. 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 Patient is motivated with good rehab potential. Skilled PT will address impairments and functional limitations in order to achieve goals. Frequency and Duration: The patient will be seen 2x/week for 5 weeks Short Term Goals: I with HEP - 2 weeks AROM flexion and abduction 110 - 3 weeks ER 40 - 3 weeks IR 40 - 3 weeks Management Consulting Goals: Strength 4/5 grossly - 5 weeks AROM flexion and abd 130 - 5 weeks SPADI 30/130 - 5 weeks Able to perform daily household tasks 3/10 pain max - 5 weeks Treatment Plan: Modalities to reduce pain, spasms and effusion. Manual therapy to restore motion and function. Therapeutic exercise to improve strength and flexibility. Neuromuscular re-education for posture and balance. Therapeutic activities to return to functional activities of daily living. Electronically signed by: Xavi Giordano, PT Please sign and return to therapist. Thank you for your referral.
--- NOTE | 2024-05-11 10:55 | MHC.PT.DC ---
[facility] [place] [facility] [place] [facility] [place] [facility] [address] Arcadio Nava [address] [phone] F: [phone] F: [phone] F: [phone] F: [phone] Physical Therapy Discharge Report Diagnosis: Pain in the R shoulder. Date of Surgery: Date of Evaluation: 09/22/23 Date of Discharge: 12/13/23 Treatments to Date: 12 Cancellations to Date: No Shows to Date: Discharge Status: Recommend MD Follow-up Discharge Summary: 11/05/23: pt has been compliant with PT and motivated to improve. however, progress on impairments and functional limitations has been minimal thus far (although some ROM progress is appreciated (flexion AAROM to 110, ER to 40.). at this time, we will hold on PT as she follows up with MD. I will recommend further imaging for best optimal management at this time. 11/03/23: pt with 1 more appt then follow up with MD. it seems as though a PT hold and further imaging is warranted due to the slow progression and residual pain. 10/29/23: Continued to follow POC, needs some cuing for posture during care ER and speed radha exercises. Educated on muscles being activated with exercises and exercise induced soreness. Continued to use MH prior and ice to finish as she does not prefer one or the other. States that she thinks she will need one more appointment in order to get her MRI. Educated her she has 2 more scheduled and to touch base with evaluating therapist about POC. 10/26/23: pt wants an MRI. Started with MH to warm up and ice at the end. Patient fatigued but performed exercises to available range. Continued POC and RTC strengthening to tolerance. Needs cues with towel for rotational movements. No adverse reactions noted 10/20/23: pt has been progressing slowly still. AAROM flexion to 115, abd to 110. we were able to initiated more cuff strengthening. assess response and progress as tolerated. 10/22/23: pt was issued complete HEP today. still with weakness and compensation with ER. We are in continued discernment between continue with PT and hold and see ortho (she prefers [facility]). I am leaning towards hold and refer should progress continue to stall. 10/15/23: pt progressing slowly with ROM. we discussed discernment between continuing and holding and returning to MD. we will continue these discussions. 10/13/23: pt returns after being sick and unable to do HEP. we attempted to progress with strength. she fatigued quickly. 10/01/23: better tolerance to letting arm rest at side but pain is still present at rest. progressing as tolerated but not much functional gain yet. 09/28/23: pt has been progressing slowly. educated thoroughly on letting arm hang during today as pt habitually keeps arm in sling position, does not extend elbow. 09/24/23: progressed ROM and stretching. some pain. educated in pain free motion only. cp to finish. HEP the same. Patient is a 73 year old R handed female who presents with s/s consistent with R shoulder pain. She is retired and likes to stay busy taking care of her house and aunt. Patient past medical history includes back, shoulder, knee and foot surgery with complication. She has AFib and is on blood thinners. Current impairments include pain, posture, ROM, strength, activity tolerance and functional mobility. 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 Patient is motivated with good rehab potential. Skilled PT will address impairments and functional limitations in order to achieve goals. Electronically signed by: Xavi Giordano, PT Please sign and return to therapist. Thank you for your referral.
== END 2024-05-11 10:56 | disposition home or self-care (01) ==
LOC: HO.PTCHIC 07:00
PROVIDERS: PCP Nurse Practitioner Family; Visit Provider Nurse Practitioner Family
DX: M25.511 Pain in right shoulder (principal)
CPT/HCPCS: 97110; 97140; 97163

== ENCOUNTER 2023-11-10 07:29 | Outpatient (AMB) | payer MEDICARE, SELFPAY ==
--- NOTE | 2023-11-10 07:40 | A.OFFPC_ITS ---
Vital Signs 11/10/23 08:17 Height 5 ft 5 in Weight 191 lb BMI 31.8 BP 132/82 Blood Pressure Location Lt brachial Position Sitting Pulse 68 Pulse Source Pulse Oximeter Pulse Oximetry (%) 99 Intake Visit Reasons: Pre OP follow up, repeat A1C Intake Note: pt is here for follow up pre-op, repeated A1C Allergies Iodinated Contrast Media [IV Dye, Iodine Containing] Allergy (Severe, Verified 11/10/23 08:18) ANAPHYLAXIS shellfish derived [SHELLFISH DERIVED] Allergy (Severe, Verified 11/10/23 08:18) ANAPHYLAXIS diltiazem [Cardizem] Allergy (Unknown, Verified 11/10/23 08:18) sob and leg swelling gabapentin [GABAPENTIN] Allergy (Unknown, Verified 11/10/23 08:18) UNKNOWN-PATIENT REFUSES gadobutrol [Gadavist] Allergy (Unknown, Verified 11/10/23 08:18) Unknown iopromide [Ultravist] Allergy (Unknown, Verified 11/10/23 08:18) Unknown Tobacco use date assessed: 11/10/23 Fall risk assessment: No Falls in past year Last assessed Fall Risk: 11/10/23 Dental Screening Dental Screen Date: 11/10/23 Did you have a dental visit in the last 12 months?: Yes Did you have a dental problem in the last 6 months where you did not have access to dental care?: No Was dental information given to patient?: Patient has dentist HPI Pre OP follow up, repeat A1C HPI Details Pt is here for pre-op evaluation. She is scheduled for cataract surgery next month. Pt was seen previously for a pre-op but her A1C was elevated at 10.4 and she could not be cleared for surgery. A1C today is 9.4. Will clear pt for surgery, though emphasized that A1C is still elevated at 9.4. Her A1c is trending down and she continues to tweak her diet. 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 Will make surgeon aware of this. 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 Pasha Johnson, Danii Mann, Farhad Reed and colleagues, with an educational sandeep from [employer]. ACT Questionnaire During the past 4 weeks, how often did your asthma symptoms wake you up at night or earlier than usual in the morning?: Once or twice per week Score: 4 Review of Systems Const Denies chills and Denies fever(s) Eyes Denies blurry vision ENT Denies vertigo, Denies dizziness and Denies sore throat Card Denies chest pain at rest, Denies chest pain with activity, Denies diaphoresis, Denies dyspnea and Denies dyspnea on exertion Resp Denies cough, Denies dyspnea, Denies dyspnea on exertion and Denies wheezing GI Denies abdominal pain, Denies melena, Denies hematochezia, Denies constipation, Denies diarrhea and Denies loose stools Denies hematuria Musc Denies numbness and Denies tingling Skin/Breast Denies lesions Neuro Denies vertigo, Denies dizziness, Denies numbness and Denies tingling Psych Denies anxiety, Denies depression, Denies homicidal ideation, Denies suicidal ideation and Denies other (substance abuse) Aller/Immun Denies wheezing Physical exam (Primary Care) Vital Signs: Last Vital Signs Pulse 68 11/10/23 08:17 BP 132/82 11/10/23 08:17 Pulse Ox 99 11/10/23 08:17 BMI result Body Mass Index 31.8 Tobacco/Smoking Status: Tobacco use Status Tobacco use date assessed 11/10/23 11/10/23 08:19 Patient Tobacco Use Status Never used Tobacco 11/10/23 07:40 e-Cigarette/Vaping Use Never Used 11/10/23 07:40 Thrive Assessment: Date of Thrive Assessment Date Thrive assessed 10/25/23 11/10/23 07:40 Const General: cooperative Nutritional Appearance: obese Orientation/consciousness: patient oriented x3 Neck Neck: Yes no lymphadenopathy Resp Effort & Inspection: normal respiratory effort Auscultation: clear to auscultation bilaterally Cardio Rhythm: abnormal rhythm (afib) irregularly irregular Heart sounds: S1 normal heart sound present and S2 normal heart sound present Neuro General: patient oriented x3 Psych Appearance: grossly normal Mental Status: mental status grossly normal Speech and movement: Normal speech and movement present Affect: normal affect Attitude: cooperative Thought process: Normal thought process present Thought content: Normal thought content present Insight: Good insight present (Psych) Judgement: Good judgement present (Psych) Results AMB Hemoglobin A1c AMB Hemoglobin A1c 9.4 % Last Edit by León Aparicio CMA on 11/10/23 09: 13 Results Reviewed Results Reviewed: Laboratory Last Values Hgb A1c (Clinic) 9.4 % (4.0-6.0) H 11/10/23 09:12 Assessment and Plan Assessment & Plan (1) Pre-op evaluation: Code(s): Z01.818 - Encounter for other preprocedural examination Plan The patient agreed to the use of a certified medical technician for this encounter. Scribed for SHELDON Carrillo by tiffanie Hernandez scribe, on 11/10/2023 at 08:30 EST. Orders: Orders AMB Hemoglobin A1c Today Z13.9 - Encounter for screening, unspecified Coding Level of Care Code Est Pt Prev Care >65y(53071) Diagnoses Pre-op evaluation Z01.818
[2023-11-10 08:17] VITALS: BP 132/82; PULSE 68; O2SAT 99; BMI 31.8
== END 2023-11-10 09:17 | disposition home or self-care (01) ==
PROVIDERS: PCP Nurse Practitioner Family; Visit Provider Nurse Practitioner Family
DX: E11.9 Type 2 diabetes mellitus without complications (principal); Z01.818 Encounter for other preprocedural examination
CPT/HCPCS: 83036; 99213

== ENCOUNTER 2023-11-24 06:01 | Outpatient (REF) | payer MEDICARE, SELFPAY ==
[2023-11-24 10:19] LABS: MANUAL DIFF FLAG NO
[2023-11-24 10:20] LABS: Basophils Percent Auto 0.5 % (0-2); Eosinophils Absolute Auto 0.2 X10*3/uL (0.0-0.4); Hematocrit 38.2 % (37.0-47.0); Hemoglobin 12.9 g/dl (12.0-16.0); Imm Gran Abs Auto 0.03 X10*3/uL (0.00-0.03); Imm Gran Pct Auto 0.5 % (0.0-0.4); Lymphocytes Absolute Auto 1.5 X10*3/uL (1.2-4.9); Lymphocytes Percent Auto 24.4 % (20-40); Mean Corpuscular HGB Conc 33.8 g/dl (31.0-35.0); Mean Corpuscular Hemoglobin 30.6 pg (27.0-33.0); Mean Corpuscular Volume 90.7 fL (80.0-98.0); Mean Platelet Volume 11.2 fL (9.4-12.3); Monocytes Absolute Auto 0.5 X10*3/uL (0.1-1.2); Neutrophils Absolute Auto 3.8 x10*3/uL (2.0-8.3); Neutrophils Percent Auto 63.6 % (45-73); Platelet Count 181 X10*3/uL (160-400); Red Blood Count 4.21 X10*6/uL (4.20-5.50); Red Cell Distribution Width 12.7 % (11.0-16.0)
[2023-11-24 10:22] LABS: Appearance Urine Clear; Color Urine Yellow; Glucose Urine UA Negative (Negative); Leukocyte Esterase Urine Negative (Negative); Nitrite Urine Negative (Negative); PH 5.5 (5.0-9.0); UMIC TRIGGER UACC YES; Urine Blood Negative (Negative); Urine Ketones Negative (Negative); Urine Protein 30 (1+) mg/dL (Neg-Trace)
[2023-11-24 10:34] LABS: Bacteria Urine None Seen (None Seen); Hyaline Casts Urine 0-2 /LPF (0-2); RBC Urine 0-2 /HPF (0-2); Squamous Epithelial Cell Urine 0-2 /HPF (0-2); WBC Urine 0-5 /HPF (0-5)
[2023-11-24 10:59] LABS: Estimated Average Glucose 214 mg/dL; Hemoglobin A1c % 9.1 % (<6.0)
[2023-11-24 11:08] LABS: Alanine Aminotransferase 13 U/L (0-31); Albumin Level 3.9 g/dL (3.5-5.0); Alkaline Phosphatase 59 U/L (39-117); Anion Gap 11 (12-20); Aspartate Amino Transferase 15 U/L (5-31); Bilirubin Total 0.6 mg/dL (0.0-1.0); Blood Urea Nitrogen 26 mg/dL (9-16); Calcium 8.9 mg/dL (8.4-10.2); Carbon Dioxide 27 mmol/L (22-29); Chloride 104 mmol/L (96-108); Cholesterol 130 mg/dL (<200); Estimated Glomerular Filt Rate 45; Glucose Fasting 197 mg/dL (60-99); HDL Cholesterol 31 mg/dL (>40); LDL Cholesterol Calculated 81 mg/dL (<100); Potassium 4.5 mmol/L (3.3-5.1); Sodium 137 mmol/L (135-145); Total Protein 6.8 g/dL (6.5-8.0); Triglycerides 94 mg/dL (<150)
[2023-11-24 11:09] LABS: TSH reflex Free T4 2.67 uIU/mL (0.32-4.0)
== END 2023-11-24 06:02 | disposition home or self-care (01) ==
LOC: HO.HMGCLDS 06:01
PROVIDERS: PCP Nurse Practitioner Family; Visit Provider Nurse Practitioner Family
DX: E11.65 Type 2 diabetes mellitus with hyperglycemia (principal)
CPT/HCPCS: 36415; 80053; 80061; 81001; 83036; 84443; 85025

== ENCOUNTER 2023-12-01 08:17 | Outpatient (AMB) | payer MEDICARE, SELFPAY ==
--- NOTE | 2023-12-01 09:10 | AM.OFFVISMDC ---
Intake Vital Signs 12/01/23 09:12 Height 5 ft 5 in Weight 192 lb BMI 31.9 BP 138/98 H Blood Pressure Location Rt brachial Position Sitting Pulse 56 Pulse Source Pulse Oximeter Pulse Oximetry (%) 99 Oxygen Delivery Method Room Air Intake Visit Reasons: SWV G0439 Intake Note: Patient here for SWV Allergies Iodinated Contrast Media [IV Dye, Iodine Containing] Allergy (Severe, Verified 12/01/23 09:12) ANAPHYLAXIS shellfish derived [SHELLFISH DERIVED] Allergy (Severe, Verified 12/01/23 09:12) ANAPHYLAXIS diltiazem [Cardizem] Allergy (Unknown, Verified 12/01/23 09:12) sob and leg swelling gabapentin [GABAPENTIN] Allergy (Unknown, Verified 12/01/23 09:12) UNKNOWN-PATIENT REFUSES gadobutrol [Gadavist] Allergy (Unknown, Verified 12/01/23 09:12) Unknown iopromide [Ultravist] Allergy (Unknown, Verified 12/01/23 09:12) Unknown Do you need a note to return to daycare/school/sports/work: No HPI SWV G0439 HPI Details Pt is here for an SWV. Denies fever, chills, and dizziness. [place] of care in scan pile. PPP will be scanned in chart and copy will be given to pt. 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 H/O lumbosacral spine surgery History of cholecystectomy Family History Father Prostate cancer Mother Kidney disease Social History Housing: House Alcohol intake: never Patient Tobacco Use Status: Never used Tobacco e-Cigarette/Vaping Use: Never Used service: No Current occupational status: retired Current occupation: Rt handed Cognitive needs: No Hearing needs: No Vision needs: No Questionnaire Medicare Wellness Checkup [age] What gender do you identify with?: female During the past 4 weeks, how much have you been bothered by emotional problems such as feeling anxious, depressed, irritable, sad or downhearted, and blue?: not at all During the past 4 weeks, has your physical & emotional health limited your social activities with family, friends, neighbors, or groups?: not at all During the past 4 weeks, how much bodily pain have you generally had?: no pain During the past 4 weeks, was someone available to help you if you needed & wanted help?: no, not at all During the past 4 weeks, what was the hardest physical activity you could do for at least 2 minutes?: moderate Can you get to places out of walking distance without help? (For eg., can you travel alone on buses, taxis or drive your car?): No Can you go shopping for groceries or clothes without someone's help?: Yes Can you prepare your own meals?: Yes Can you do your housework without help?: Yes Because of any health problems, do you need the help of another person with your personal care needs such as eating, bathing, dressing or getting around the house?: No Can you handle your own money without help?: No During the past 4 weeks, how would you rate your health in general?: excellent Are you having difficulties driving your car?: no Do you always fasten your seat belt when you are in a car?: no During past 4 weeks, have you been bothered by the following: never: Falling or dizzy when standing up, Sexual problems?, Trouble eating well?, Teeth or denture problems?, Problems using the telephone? and Tiredness or fatigue? Have you fallen 2 or more times in the past year?: No Are you afraid of falling?: No Are you a smoker?: no During the past 4 weeks, how many drinks of wine, beer, or other alcoholic beverages did you have?: no alcohol at all Do you exercise for about 20 minutes 3 or more times a week?: no, I usually do not exercise this much Have you been given information to help with the following?: no: Hazards in your house that might hurt you? and no: Keeping track of your medications? How often do you have trouble taking medicines the way you have been told to take them?: I always take medicine as prescribed How confident are you that you can control & manage most of your health problems?: very confident What is your race?: White PHQ-9 Over the last 2 weeks, how often have you been bothered by any of the following problems? 95406 - PHQ-9 Billing: Patient declined-do not bill Source: Developed by Drs. Pasha Johnson, Danii Mann, Farhad Reed and colleagues, with an educational sandeep from [employer]. Review of Systems Const Reports as per HPI Physical Exam Vital Signs: Last Vital Signs Pulse 56 12/01/23 09:12 BP 138/98 H 12/01/23 09:12 Pulse Ox 99 12/01/23 09:12 Oxygen Delivery Method Room Air 12/01/23 09:12 BMI result Body Mass Index 31.9 Const General: cooperative Nutritional Appearance: obese Orientation/consciousness: patient oriented x3 Neuro Other: - romberg, can tandem walk, can walk and turn, can rise from sitting to standing, passed whisper test General: patient oriented x3 Psych Appearance: grossly normal Mental Status: mental status grossly normal Speech and movement: Normal speech and movement present Affect: normal affect Attitude: cooperative Thought process: Normal thought process present Thought content: Normal thought content present Insight: Good insight present (Psych) Judgement: Good judgement present (Psych) Coding Level of Care Code Medicare Subsequent (G0439)
[2023-12-01 09:12] VITALS: BP 138/98; PULSE 56; O2SAT 99; BMI 31.9
--- NOTE | 2023-12-01 09:34 | A.OFFPC_ITS ---
Vital Signs 12/01/23 09:12 12/01/23 09:58 Height 5 ft 5 in Weight 192 lb BMI 31.9 BP 138/98 H 122/84 Blood Pressure Location Rt brachial Rt brachial Position Sitting Sitting Pulse 56 Pulse Source Pulse Oximeter Pulse Oximetry (%) 99 Oxygen Delivery Method Room Air Intake Visit Reasons: SWV G0439 Allergies Iodinated Contrast Media [IV Dye, Iodine Containing] Allergy (Severe, Verified 12/01/23 09:44) ANAPHYLAXIS shellfish derived [SHELLFISH DERIVED] Allergy (Severe, Verified 12/01/23 09:44) ANAPHYLAXIS diltiazem [Cardizem] Allergy (Unknown, Verified 12/01/23 09:44) sob and leg swelling gabapentin [GABAPENTIN] Allergy (Unknown, Verified 12/01/23 09:44) UNKNOWN-PATIENT REFUSES gadobutrol [Gadavist] Allergy (Unknown, Verified 12/01/23 09:44) Unknown iopromide [Ultravist] Allergy (Unknown, Verified 12/01/23 09:44) Unknown Medication List - Last Reconciled 12/01/23 by SHELDON Nunes apixaban (Eliquis) 5 mg PO BID metoprolol tartrate 100 mg (2 x 50 mg) PO BID 90 days Tobacco use date assessed: 11/10/23 Dental Screening Dental Screen Date: 11/10/23 HPI SWV G0439 HPI Details Not an SWV. Pt c/o pain to her RUE. She reports pain from her elbow to her shoulder. Previous shoulder XR showed no fracture or dislocation is seen. 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 Findings suggest possible right rotator cuff impingement. No jonathon calcific tendinitis is noted. Pt has gone to PT with no relief. Will order MRI of humerus as pt reports the most pain to this area. 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 Pasha Johnson, Danii Mann, Farhad Reed and colleagues, with an educational sandeep from [employer]. Review of Systems Const Reports as per HPI Physical exam (Primary Care) Vital Signs: Last Vital Signs Pulse 56 12/01/23 09:12 BP 122/84 12/01/23 09:58 Pulse Ox 99 12/01/23 09:12 Oxygen Delivery Method Room Air 12/01/23 09:12 BMI result Body Mass Index 31.9 Tobacco/Smoking Status: Tobacco use Status Tobacco use date assessed 11/10/23 12/01/23 09:35 Patient Tobacco Use Status Never used Tobacco 12/01/23 09:35 e-Cigarette/Vaping Use Never Used 12/01/23 09:35 Thrive Assessment: Date of Thrive Assessment Date Thrive assessed 10/25/23 12/01/23 09:35 Const General: cooperative Nutritional Appearance: obese Orientation/consciousness: patient oriented x3 Resp Effort & Inspection: normal respiratory effort Auscultation: clear to auscultation bilaterally Cardio Rate: regular rate Rhythm: abnormal rhythm irregularly irregular Heart sounds: S1 normal heart sound present and S2 normal heart sound present Neuro General: patient oriented x3 Extrem Other: with palpation of right distal bicep/lateral aspect of humerus tender with palpation, no swelling Psych Appearance: grossly normal Mental Status: mental status grossly normal Speech and movement: Normal speech and movement present Affect: normal affect Attitude: cooperative Thought process: Normal thought process present Thought content: Normal thought content present Insight: Good insight present (Psych) Judgement: Good judgement present (Psych) Assessment and Plan Assessment & Plan (1) Right arm pain: Code(s): M79.601 - Pain in right arm Plan: right arm pain Plan The patient agreed to the use of a medical leader for this encounter. Scribed for ROSSY Carrillo-ANGIE by Tia Simpson medical leader, on 12/01/2023 at 09:30 EST. Orders: Orders MR humerus RT wo con Today G89.29 - Other chronic pain, M79.601 - Pain in right arm Coding Level of Care Code Est Pt Level 3 (21299) Diagnoses Right arm pain M79.601
[2023-12-01 09:58] VITALS: BP 122/84
== END 2023-12-01 12:16 | disposition home or self-care (01) ==
PROVIDERS: PCP Nurse Practitioner Family; Visit Provider Nurse Practitioner Family
DX: M79.601 Pain in right arm (principal)
CPT/HCPCS: 99213

== ENCOUNTER 2023-12-28 08:57 | Outpatient (REF) | payer MEDICARE, SELFPAY ==
--- NOTE | ~2023-12-28 | MR_ITS ---
EXAMINATION: MR HUMERUS WITHOUT CONTRAST, RIGHT CLINICAL INFORMATION: Right upper arm pain. COMPARISON: Radiographs 08/19/2023. TECHNIQUE: MRI without contrast is performed on the right humerus. FINDINGS: No humerus fracture. No marrow edema or suspicious bone lesion. No acute muscle strain or tear. Postsurgical changes of the shoulder likely due to rotator cuff repair and acromioplasty, not adequately evaluated on this study. No adenopathy. No focal fluid collection or obvious soft tissue mass. MR/MR humerus RT wo con IMPRESSION: Unremarkable examination.
== END 2023-12-28 08:58 | disposition home or self-care (01) ==
LOC: HO.MRI 08:57
PROVIDERS: PCP Nurse Practitioner Family; Visit Provider Nurse Practitioner Family
DX: G89.29 Other chronic pain (principal); M79.601 Pain in right arm
CPT/HCPCS: 73218

== ENCOUNTER 2024-04-08 06:27 | Outpatient (REF) | payer MEDICARE, SELFPAY ==
[2024-04-08 11:01] LABS: MANUAL DIFF FLAG NO
[2024-04-08 11:03] LABS: Basophils Percent Auto 0.5 % (0-2); Eosinophils Absolute Auto 0.2 X10*3/uL (0.0-0.4); Eosinophils Percent Auto 3.6 % (0-4); Hematocrit 39.1 % (37.0-47.0); Hemoglobin 12.9 g/dl (12.0-16.0); Imm Gran Abs Auto 0.02 X10*3/uL (0.00-0.03); Imm Gran Pct Auto 0.3 % (0.0-0.4); Lymphocytes Absolute Auto 1.7 X10*3/uL (1.2-4.9); Lymphocytes Percent Auto 27.4 % (20-40); Mean Corpuscular Hemoglobin 30.1 pg (27.0-33.0); Mean Corpuscular Volume 91.4 fL (80.0-98.0); Mean Platelet Volume 11.5 fL (9.4-12.3); Monocytes Absolute Auto 0.5 X10*3/uL (0.1-1.2); Monocytes Percent Auto 7.5 % (2-11); Neutrophils Absolute Auto 3.7 x10*3/uL (2.0-8.3); Neutrophils Percent Auto 60.7 % (45-73); Platelet Count 159 X10*3/uL (160-400); Red Blood Count 4.28 X10*6/uL (4.20-5.50); Red Cell Distribution Width 12.9 % (11.0-16.0); White Blood Count 6.1 X10*3/uL (4.8-10.8)
[2024-04-08 11:14] LABS: Appearance Urine Clear; Color Urine Yellow; Glucose Urine UA Negative (Negative); Leukocyte Esterase Urine Negative (Negative); Nitrite Urine Negative (Negative); Specific Gravity - Urine 1.015 (1.005-1.025); UMIC TRIGGER UACC YES; Urine Blood Negative (Negative); Urine Ketones Negative (Negative); Urine Protein 100 (2+) mg/dL (Neg-Trace)
[2024-04-08 11:29] LABS: Bacteria Urine Trace (None Seen); Hyaline Casts Urine 0-2 /LPF (0-2); RBC Urine 0-2 /HPF (0-2); WBC Urine 0-5 /HPF (0-5)
[2024-04-08 11:30] LABS: Alanine Aminotransferase 11 U/L (0-31); Albumin Level 4.1 g/dL (3.5-5.0); Alkaline Phosphatase 61 U/L (39-117); Anion Gap 13 (12-20); Aspartate Amino Transferase 15 U/L (5-31); Bilirubin Total 0.7 mg/dL (0.0-1.0); Blood Urea Nitrogen 26 mg/dL (9-16); Calcium 9.5 mg/dL (8.4-10.2); Carbon Dioxide 26 mmol/L (22-29); Chloride 102 mmol/L (96-108); Cholesterol 147 mg/dL (<200); Estimated Glomerular Filt Rate 46; Glucose Fasting 251 mg/dL (60-99); HDL Cholesterol 34 mg/dL (>40); LDL Cholesterol Calculated 90 mg/dL (<100); Potassium 4.3 mmol/L (3.3-5.1); Sodium 137 mmol/L (135-145); Total Protein 7.4 g/dL (6.5-8.0); Triglycerides 119 mg/dL (<150)
[2024-04-08 11:35] LABS: TSH reflex Free T4 3.14 uIU/mL (0.32-4.0); Vitamin D 25-OH Total 38.4 ng/mL (>30)
[2024-04-08 11:50] LABS: Estimated Average Glucose 255 mg/dL; Hemoglobin A1c % 10.5 % (<6.0)
== END 2024-04-08 06:28 | disposition home or self-care (01) ==
LOC: HO.HMGCLDS 06:27
PROVIDERS: Visit Provider Nurse Practitioner Family
DX: E11.9 Type 2 diabetes mellitus without complications (principal); E55.9 Vitamin D deficiency, unspecified
CPT/HCPCS: 36415; 80053; 80061; 81001; 82306; 83036; 84443; 85025

== ENCOUNTER 2024-04-10 09:21 | Outpatient (AMB) | payer MEDICARE, SELFPAY ==
[2024-04-10 09:22] VITALS: BP 140/80; PULSE 80; O2SAT 98; BMI 32.1
--- NOTE | 2024-04-10 09:22 | MHC.PC.OV ---
Vital Signs 04/10/24 09:22 Height 5 ft 5 in Weight 193 lb BMI 32.1 BP 140/80 H Blood Pressure Location Rt brachial Position Sitting Pulse 80 Pulse Source Pulse Oximeter Pulse Oximetry (%) 98 Oxygen Delivery Method Room Air Intake Visit Reasons: 4 month follow up Intake Note: pt is here for 4 month follow up, last A1c was withing 3 months at 10.5% Allergies Iodinated Contrast Media [IV Dye, Iodine Containing] Allergy (Severe, Verified 04/10/24 09:28) ANAPHYLAXIS shellfish derived [SHELLFISH DERIVED] Allergy (Severe, Verified 04/10/24 09:28) ANAPHYLAXIS diltiazem [Cardizem] Allergy (Unknown, Verified 04/10/24 09:28) sob and leg swelling gabapentin [GABAPENTIN] Allergy (Unknown, Verified 04/10/24 09:28) UNKNOWN-PATIENT REFUSES gadobutrol [Gadavist] Allergy (Unknown, Verified 04/10/24 09:28) Unknown iopromide [Ultravist] Allergy (Unknown, Verified 04/10/24 09:28) Unknown Medication List - Last Reconciled 04/10/24 by SHELDON Nunes apixaban (Eliquis) 5 mg PO BID losartan 25 mg PO DAILY metoprolol tartrate 100 mg (2 x 50 mg) PO BID 90 days Tobacco use date assessed: 11/10/23 Fall risk assessment: No Falls in past year Last assessed Fall Risk: 04/10/24 Dental Screening Dental Screen Date: 11/10/23 HPI 4 month follow up HPI Details Pt is a diabetic. Last A1C was 10.5. Microalbumin is up to date. Denies polyuria, polydipsia, and neuropathy. Pt denies any signs and symptoms of hypoglycemia and does know how to correct it. Refuses diabetes meds currently, she would like to work on her diet. Will start losartan 25mg (start with half a tab). Hx of microalbuminuria, refuses to see nephrology. Eye exam is up to date. Refuses all vaccinations and foot exam today (has a lunch cook). Will reassess labs in the near future. 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 1. Little interest or pleasure in doing things: not at all 2. Feeling down, depressed, or hopeless: not at all 3. Trouble falling or staying asleep, or sleeping too much: not at all 4. Feeling tired or having little energy: not at all 5. Poor appetite or overeating: not at all 6. Feeling bad about yourself - or that you are a failure or have let yourself or your family down: not at all 7. Trouble concentrating on things, such as reading the newspaper or watching television: not at all 8. Moving or speaking so slowly that other people could have noticed. Or the opposite - being so fidgety or restless that you have been moving around a lot more than usual: not at all 9. Thoughts that you would be better off or of hurting yourself in some way: not at all Total score: 0 Depression Screening Interpretation: Negative Depression Screening Done: Yes 19473 - PHQ-9 Billing: Yes Source: Developed by Drs. Pasha Johnson, Danii Mann, Farhad Reed and colleagues, with an educational sandeep from [employer]. Thrive Questionnaire Date Thrive assessed: 04/10/24 I am a: Patient What is your living situation today?: I have a steady place to live Within the past 12 months, did the food you bought not last and you didn't have the money to get more?: Often true Within the past 12 months, did you worry whether your food would run out before you got money to buy more?: Often true Do you have trouble paying for medicines?: No Do you have trouble getting transportation to medical appointments?: No Do you have trouble paying your heating and electricity bill?: No Do you have trouble taking care of your child, family member or friend?: No Do you have trouble with day-to-day activities such as bathing, preparing meals, shopping, managing finances, etc.?: No Are you currently unemployed and looking for a job?: No Are you interested in more education?: No Please select the resources that you would like help with: Housing/Chcf Currently or been in a relationship where the following occur: No concerns reported THRIVE Score: 2 AUDIT C Alcohol Use Questionnaire (AUDIT-C) 1. How often do you have a drink containing alcohol?: Never 3. How often do you have six or more drinks on one occasion?: Never Total Score: 0 Score Reviewed/Action Taken: Yes YONY-7 AMB Questionnaire YONY-7 Date YONY - 7 assessed: 04/10/24 Feeling nervous, anxious, or on edge: 0 = Not at all Not being able to stop or control worryin = Not at all Worrying too much about different things: 0 = Not at all Trouble relaxin = Not at all Being so restless that it is hard to sit still: 0 = Not at all Becoming easily annoyed or irritable: 0 = Not at all Feeling afraid as if something awful might happen: 0 = Not at all Total YONY-7 score (0-4 normal; 5-9 mild; 10-14 moderate; 15-21 severe): 0 Source: Developed by Drs. Pasha Johnson, Danii Mann, Farhad Reed and colleagues, with an educational sandeep from [employer]. YONY-7 Assessment Billing YONY-7 Assessment Tool: YONY-7 Assessment 69865 Review of Systems Const Reports as per HPI Physical exam (Primary Care) Vital Signs: Last Vital Signs Pulse 80 04/10/24 09:22 BP 140/80 H 04/10/24 09:22 Pulse Ox 98 04/10/24 09:22 Oxygen Delivery Method Room Air 04/10/24 09:22 BMI result Body Mass Index 32.1 Tobacco/Smoking Status: Tobacco use Status Tobacco use date assessed 11/10/23 04/10/24 09:23 Patient Tobacco Use Status Never used Tobacco 04/10/24 09:23 e-Cigarette/Vaping Use Never Used 04/10/24 09:23 PHQ-9: PHQ-9 Score PHQ-9: Total score 0 04/10/24 09:34 Depression Screening Interpretation: Negative Thrive Assessment: Date of Thrive Assessment Date Thrive assessed 04/10/24 04/10/24 09:31 Currently or been in a relationship where the following occur: No concerns reported Const General: cooperative Orientation/consciousness: patient oriented x3 Resp Effort & Inspection: normal respiratory effort Auscultation: clear to auscultation bilaterally Cardio Rate: regular rate Rhythm: abnormal rhythm irregularly irregular Heart sounds: S1 normal heart sound present and S2 normal heart sound present Neuro General: patient oriented x3 Extrem Other: refused foot exam Psych Appearance: grossly normal Mental Status: mental status grossly normal Speech and movement: Normal speech and movement present Affect: normal affect Attitude: cooperative Thought process: Normal thought process present Thought content: Normal thought content present Insight: Good insight present (Psych) Judgement: Good judgement present (Psych) Assessment and Plan Assessment & Plan (1) Uncontrolled diabetes mellitus with hyperglycemia: Code(s): E11.65 - Type 2 diabetes mellitus with hyperglycemia Plan: Labs ordered, refuses diabetes meds, starting losartan for renal protection Plan The patient agreed to the use of a medical record retrieval specialist for this encounter. Scribed for SEHLDON Carrillo by Tia Simpson medical record retrieval specialist, on 04/10/2024 at 09:35 EST. Orders: Orders Complete Blood Count Auto Diff Today E11.9 - Type 2 diabetes mellitus without complications Comprehensive Met. Panel Today E11.9 - Type 2 diabetes mellitus without complications Medications: New losartan 25 mg PO DAILY 90 tabs 0RF Coding Level of Care Code Est Pt Level 3 (08662) Diagnoses Uncontrolled diabetes mellitus with hyperglycemia E11.65 Additional Codes YONY-7 Assessment Billing - YONY-7 Assessment Tool: YONY-7 Assessment 79290 ([id number])
== END 2024-04-10 11:35 | disposition home or self-care (01) ==
PROVIDERS: PCP Nurse Practitioner Family; Visit Provider Nurse Practitioner Family
DX: E11.65 Type 2 diabetes mellitus with hyperglycemia (principal)
CPT/HCPCS: 99213

== ENCOUNTER 2024-04-27 06:55 | Outpatient (AMB) | payer MEDICARE, SELFPAY ==
--- NOTE | 2024-04-27 06:58 | A.OFFVIS_ITS ---
Vital Signs 04/27/24 06:59 Height 5 ft 5 in Weight 194 lb 0.108 oz BMI 32.3 BP 138/80 Blood Pressure Location Rt brachial Position Sitting Pulse 80 Pulse Source Pulse Oximeter Intake Visit Reasons: DM/LVM Intake Note: Patient presents today to re-establish treatment for Type 2 Diabetes Mellitus: Last Diabetic eye exam was on: [facility], 02/08/2024 Last Podiatry exam was on: [facility], 04/18/2024 Most recent HbA1c: 10.5%, 04/08/2024 Random Glucose- 284 mg/dL, Today Car Inspection And Repair Manager Required: No Accompanied by: Self / Same As Patient Allergies Iodinated Contrast Media [IV Dye, Iodine Containing] Allergy (Severe, Verified 04/27/24 07:01) ANAPHYLAXIS shellfish derived [SHELLFISH DERIVED] Allergy (Severe, Verified 04/27/24 07:01) ANAPHYLAXIS diltiazem [Cardizem] Allergy (Unknown, Verified 04/27/24 07:01) sob and leg swelling gabapentin [GABAPENTIN] Allergy (Unknown, Verified 04/27/24 07:01) UNKNOWN-PATIENT REFUSES gadobutrol [Gadavist] Allergy (Unknown, Verified 04/27/24 07:01) Unknown iopromide [Ultravist] Allergy (Unknown, Verified 04/27/24 07:01) Unknown HPI Comments Details: [74] YO [M/F] who is seen in consultation for T2DM at the request of PCP. Initially diagnosed with T2DM: patient is uncertain as to when she was diagnosed Was initially started on treatment with [diet and exercise]. Through diet and exercise she was able to get her sugars down in the past. She endorses that her diet has been poor over the last year but has recently gone back to following the plate method. 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 Current regimen [no medication]. She has declined all medication despite recommendations from her primary care provider. She states I believe it is my personal choice if I want to take medication . Reports low sugars [none]. She tests her sugar twice daily morning readings are 220-240 in the evening before supper 170-185. When she 1st started testing a month ago her readings were in the 300 range. Most recent A1C [10.5%] on 04/08/24. A1C has been elevated for several years. She is not on a statin, last LDL 90 04/08/24. [place] [facility] [place] She has ckd with a eGFR of 47 and macroalbuminuria. She has declined Nephrology consult. Sees podiatry Dr. Bermudez at [facility] on a regular basis, she had surgery for bunions several years ago and developed gangrene to 1 of her toes which was amputated. She has hammertoes. She walks barefoot outside. Diet: [She is using the Sylvia plate method. Breakfast typically consists of whole grain muffin with egg. She often skips lunch and for dinner has a staying with a vegetable. She has a shellfish allergy and does not eat chicken, turkey or fish due to allergies.] Weight: [Weight has been stable since 08/22] [No recent] diabetes education. 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 Absence of acromegalic features. Neck exam reveals nl size thyroid about 15 gms. No thyroid nodules palpable. No carotid bruits present. Lungs CTA. Heart S1 S2, Reg R/R. No M/R/ G. Skin exam reveals absence of vitiligo or acanthosis nigricans. Abdominal exam reveals Soft NT/ND with NA BS. No organomegaly present. Const Other: Absence of Cushingoid features. Absence of acromegalic features. Neck exam reve als nl size thyroid about 15 gms. No thyroid nodules palpable. No carotid bruits present. Lungs CTA. Heart S1 S2, Reg R/R. No M/R G. Skin exam reveals absence of vitiligo or acanthosis nigricans. Neck Other: . Extrem Other: Visual exam of foot performed. No ulcerations or open lesions. Amputation 3rd right toe. No interdigit fissuring or maceration. No onchomycosis, no callouses. Nails thickened but not elongated. Hammer toes. amputation Sensation intact to monofilament exam. Vibratory sensation sensed is intact with 128 Hz tuning fork. Results Reviewed Results Reviewed: Laboratory Last Values Glucose (Clinic) 284 mg/dL (60-115) H 04/27/24 07:05 Laboratory Tests 11/24/23 04/08/24 06:14 06:33 Potassium 4.3 Creatinine 1.16 Estimated GFR 46 Hemoglobin A1c % 9.1 H 10.5 H AST 15 ALT 11 Triglycerides 119 Cholesterol 147 LDL Cholesterol, Calc 90 HDL Cholesterol 34 L 25-OH Vitamin D Total 38.4 TSH 3.14 Assessment & Plan Assessment & Plan (1) Uncontrolled diabetes mellitus with hyperglycemia: Code(s): E11.65 - Type 2 diabetes mellitus with hyperglycemia Category: Medical Plan: 74-year-old type 2 diabetic with complications of toe amputation, macro albuminuria, ckd with eGFR 47 and retinopathy with an A1C of 10.5%. She has declined medication therapy for diabetes and would like to work on diet and exercise for the next few months. She will follow up with the diabetes hog slaughterer next available appointment for review of dm/renal diet and we will follow up with me in 2 months' time. Today we discussed the progression of diabetes and the need to get her sugar average under control to prevent further decline in her eyes and kidneys. We reviewed target A1c of 7% with fasting readings less than 130 and less than 180 2 hours after meals. She endorses allergies to chicken turkey and fresh and eats steak nightly. I recommended that she consider vegetarian protein source 2-3 times and together we looked up Mediterranean salad and vegetarian burger recipes. I also suggested vegetarian chili. She has agreed to go to the grocery store and look at the velazquez aisle. The patient understands the risks of uncontrolled blood sugars. We did not discuss medication therapy today as she was adamant about continuing a trial for several months of diet and exercise. She has a pool in her backyard and we will attempt to gradually increase her exercise to 30 minutes daily and consider chair exercises on YouTube. She had stopped using her treadmill several years ago because of arthritis pain we will try using this for small amounts of time. We will see the patient back in 2 months' time to review her log books and discuss further strategies. I placed an order for Basic Metabolic Profile as she recently started on ARB. Orders: Orders Basic Metabolic Panel Fasting 4 Weeks I10 - Essential (primary) hypertension Coding Level of Care Code Tele New Pt Level 5 (33987) Complex EM visit Add On G2211 Diagnoses Uncontrolled diabetes mellitus with hyperglycemia E11.65 Time Spent (min) 60 Comment Time spent reviewing labs/provider notes, face to face, chart doc
[2024-04-27 06:59] VITALS: BP 138/80; PULSE 80; BMI 32.3
[2024-04-27 07:09] LABS: Glucose, Whole Blood 284 mg/dL (60-115)
== END 2024-04-27 08:01 | disposition home or self-care (01) ==
PROVIDERS: PCP Nurse Practitioner Family; Visit Provider Nurse Practitioner Adult Health
DX: E11.65 Type 2 diabetes mellitus with hyperglycemia (principal)
CPT/HCPCS: 99205; G2211

== ENCOUNTER → 2024-04-27 06:55 | Outpatient (BNVA) | payer MEDICARE, SELFPAY | PROVIDERS: PCP Nurse Practitioner Family; Visit Provider Nurse Practitioner Adult Health | DX: E11.65 Type 2 diabetes mellitus with hyperglycemia (principal); E11.311 Type 2 diabetes mellitus with unspecified diabetic retinopathy with macular edema; R80.9 Proteinuria, unspecified; Z91.148 Patient's other noncompliance with medication regimen for other reason | CPT/HCPCS: 82947; 99202 ==

== ENCOUNTER 2024-05-24 08:02 | Outpatient (AMB) | payer MEDICARE, SELFPAY ==
[2024-05-24 09:19] VITALS: BP 128/70; PULSE 78; BMI 31.9
--- NOTE | 2024-05-24 09:19 | A.OFFVIS_ITS ---
Vital Signs 05/24/24 09:19 Height 5 ft 5 in Weight 191 lb 12.835 oz BMI 31.9 BP 128/70 Blood Pressure Location Lt brachial Position Sitting Pulse 78 Pulse Source Monitor Intake Visit Reasons: 1 year fu Allergies Iodinated Contrast Media [IV Dye, Iodine Containing] Allergy (Severe, Verified 04/27/24 07:01) ANAPHYLAXIS shellfish derived [SHELLFISH DERIVED] Allergy (Severe, Verified 04/27/24 07:01) ANAPHYLAXIS diltiazem [Cardizem] Allergy (Unknown, Verified 04/27/24 07:01) sob and leg swelling gabapentin [GABAPENTIN] Allergy (Unknown, Verified 04/27/24 07:01) UNKNOWN-PATIENT REFUSES gadobutrol [Gadavist] Allergy (Unknown, Verified 04/27/24 07:01) Unknown iopromide [Ultravist] Allergy (Unknown, Verified 04/27/24 07:01) Unknown losartan Adverse Reaction (Mild, Verified 05/24/24 09:43) Abdominal Pain Medication List - Last Reconciled 05/24/24 by Parish Juan MD apixaban (Eliquis) 5 mg PO BID metoprolol tartrate 100 mg (2 x 50 mg) PO BID 90 days HPI Comments Details: Anastasiya comes for follow-up. She has been doing well from cardiac perspective. Recently she was started on losartan and she had side effects with nausea and GI intolerance. She has stopped taking it. Today she comes in a blood pressure is well controlled. She denies any cardiac symptoms of palpitations, lightheadedness, syncope. Denies any shortness of breath, orthopnea, PND, leg edema. No exertional chest pain. Denies any bleeding issues or neurologic events sudden current medications. Diabetes is currently diet controlled. 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 H/O lumbosacral spine surgery History of cholecystectomy Family History Father Prostate cancer Mother Kidney disease Social History Housing: House Alcohol intake: never Patient Tobacco Use Status: Never used Tobacco e-Cigarette/Vaping Use: Never Used service: No Current occupational status: retired Current occupation: Rt handed Cognitive needs: No Hearing needs: No Vision needs: No Review of Systems Const Denies weakness ENT Denies dizziness Card Denies chest pain, Denies chest pain with activity, Denies syncope, Denies rapid heart rate, Denies pedal edema, Denies edema, Denies leg edema, Denies lightheadedness, Denies palpitations, Denies dyspnea, Denies dyspnea on exertion and Denies orthopnea Resp Denies cough, Denies dyspnea and Denies dyspnea on exertion GI Denies hematochezia and Denies change in stool character Musc Denies abnormal gait, Denies muscle cramps, Denies muscle weakness, Denies numbness, Denies radiating pain into limb and Denies tingling Neuro Denies abnormal gait, Denies dizziness, Denies syncope, Denies numbness, Denies tingling and Denies weakness Endo Denies palpitations Physical Exam Vital Signs: Last Vital Signs Pulse 78 05/24/24 09:19 BP 128/70 05/24/24 09:19 BMI result Body Mass Index 31.9 Const General: cooperative, comfortable, no acute distress, alert, awake and well groomed Nutritional Appearance: overweight Orientation/consciousness: patient oriented x3 Limitations: no limitations Neck Neck: Yes trachea midline, Yes supple and Yes no JVD Resp Effort & Inspection: normal respiratory effort Auscultation: clear to auscultation bilaterally Cardio Jugular venous distension: no JVD Rhythm: abnormal rhythm irregularly irregular Heart sounds: S1 normal heart sound present and S2 normal heart sound present GI Auscultation: normal bowel sounds Skin General skin exam: no rashes or lesions noted Neuro General: patient oriented x3 and no focal motor deficits Extrem General: Yes no clubbing, cyanosis or edema Psych Appearance: grossly normal Office Procedures EKG Details: EKG shows atrial fibrillation with incomplete right bundle branch block and right axis deviation, unchanged from before [id number], Complete Assessment & Plan Assessment & Plan (1) Chronic atrial fibrillation: Comment: Asymptomatic chronic atrial fibrillation, rate control. Severe left atrial enlargement. Fail rhythm control approach Code(s): I48.20 - Chronic atrial fibrillation, unspecified Category: Medical Plan: Chronic rate control atrial fibrillation has failed rhythm control approach in the past. Currently having no signs or symptoms of atrial fibrillation. No signs or symptoms of heart failure. Continue rate control with metoprolol and continue full oral anticoagulation with apixaban. Semi annual renal function test should be pursued. Management was discussed with her. She understands agrees. Encouraged to continue maintain activity level as tolerated. (2) HTN (hypertension): Code(s): I10 - Essential (primary) hypertension Category: Medical Plan: Hypertension which is currently well optimized on current metoprolol therapy. She was tried on losartan therapy for renal protection for diabetes although she could not tolerated. Consider alternative agent. Advised to monitor blood pressure at home maintain a log. Low-salt diet was discussed. Target goal blood pressure less than 130/84. (3) Bifascicular block: Code(s): I45.2 - Bifascicular block Category: Medical Plan: Prior bifascicular block which is not apparent at current rate on the EKG. Continue to monitor annual EKG. No interventions required. Will follow up in the clinic in 1 year's time, sooner p.r.n.. Thank you for allowing me to partake in his care Coding Level of Care Code Est Pt Level 4 (26940) Diagnoses Chronic atrial fibrillation I48.20 HTN (hypertension) I10 Bifascicular block I45.2 CPT Codes EKG - CPT: 02349-[id number], Complete ([id number])
== END 2024-05-24 09:39 | disposition home or self-care (01) ==
PROVIDERS: PCP Nurse Practitioner Family; Visit Provider Internal Medicine Cardiovascular Disease
DX: I48.20 Chronic atrial fibrillation, unspecified (principal); I10 Essential (primary) hypertension; I45.2 Bifascicular block
CPT/HCPCS: 93010; 99214

== ENCOUNTER → 2024-05-24 08:02 | Outpatient (BNVA) | payer MEDICARE, SELFPAY | PROVIDERS: PCP Nurse Practitioner Family; Visit Provider Internal Medicine Cardiovascular Disease | DX: I48.20 Chronic atrial fibrillation, unspecified (principal); I45.2 Bifascicular block; I10 Essential (primary) hypertension | CPT/HCPCS: 93005; 99212 ==

== ENCOUNTER 2024-07-11 06:01 | Outpatient (REF) | payer MEDICARE, SELFPAY ==
[2024-07-11 10:11] LABS: MANUAL DIFF FLAG NO
[2024-07-11 10:21] LABS: Appearance Urine Clear; Color Urine Yellow; Glucose Urine UA Negative (Negative); Leukocyte Esterase Urine Trace (Negative); Nitrite Urine Negative (Negative); PH 6.5 (5.0-9.0); Specific Gravity - Urine 1.015 (1.005-1.025); UMIC TRIGGER UACC YES; Urine Blood Negative (Negative); Urine Ketones Negative (Negative); Urine Protein 100 (2+) mg/dL (Neg-Trace)
[2024-07-11 10:25] LABS: Bacteria Urine None Seen (None Seen); Hyaline Casts Urine 0-2 /LPF (0-2); RBC Urine 0-2 /HPF (0-2); WBC Urine 0-5 /HPF (0-5)
[2024-07-11 10:31] LABS: Basophils Percent Auto 0.5 % (0-2); Eosinophils Absolute Auto 0.2 X10*3/uL (0.0-0.4); Eosinophils Percent Auto 3.2 % (0-4); Hematocrit 40.2 % (37.0-47.0); Hemoglobin 13.2 g/dl (12.0-16.0); Imm Gran Abs Auto 0.03 X10*3/uL (0.00-0.03); Imm Gran Pct Auto 0.5 % (0.0-0.4); Lymphocytes Absolute Auto 1.4 X10*3/uL (1.2-4.9); Lymphocytes Percent Auto 21.4 % (20-40); Mean Corpuscular HGB Conc 32.8 g/dl (31.0-35.0); Mean Corpuscular Hemoglobin 30.1 pg (27.0-33.0); Mean Corpuscular Volume 91.6 fL (80.0-98.0); Mean Platelet Volume 11.5 fL (9.4-12.3); Monocytes Absolute Auto 0.5 X10*3/uL (0.1-1.2); Monocytes Percent Auto 8.3 % (2-11); Neutrophils Absolute Auto 4.3 x10*3/uL (2.0-8.3); Neutrophils Percent Auto 66.1 % (45-73); Platelet Count 134 X10*3/uL (160-400); Red Blood Count 4.39 X10*6/uL (4.20-5.50); Red Cell Distribution Width 12.3 % (11.0-16.0); White Blood Count 6.5 X10*3/uL (4.8-10.8)
[2024-07-11 10:40] LABS: Alanine Aminotransferase 14 U/L (0-31); Albumin Level 4.1 g/dL (3.5-5.0); Alkaline Phosphatase 62 U/L (39-117); Anion Gap 16 (12-20); Aspartate Amino Transferase 21 U/L (5-31); Bilirubin Total 0.7 mg/dL (0.0-1.0); Blood Urea Nitrogen 23 mg/dL (9-16); Calcium 9.7 mg/dL (8.4-10.2); Carbon Dioxide 25 mmol/L (22-29); Chloride 101 mmol/L (96-108); Estimated Glomerular Filt Rate 46; Glucose Random 243 mg/dL (60-115); Potassium 4.8 mmol/L (3.3-5.1); Sodium 137 mmol/L (135-145); Total Protein 7.4 g/dL (6.5-8.0)
== END 2024-07-11 06:02 | disposition home or self-care (01) ==
LOC: HO.HMGCLDS 06:01
PROVIDERS: PCP Nurse Practitioner Family; Visit Provider Nurse Practitioner Family
DX: E11.9 Type 2 diabetes mellitus without complications (principal)
CPT/HCPCS: 36415; 80053; 81001; 85025

== ENCOUNTER 2024-07-18 08:19 | Outpatient (AMB) | payer MEDICARE, SELFPAY ==
[2024-07-18 08:23] VITALS: BP 138/72; PULSE 72; O2SAT 98; BMI 32.8
--- NOTE | 2024-07-18 08:23 | MHC.PC.OV ---
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 Accompanied by: Self / Same As Patient Allergies Iodinated Contrast Media [IV Dye, Iodine Containing] Allergy (Severe, Verified 07/18/24 08:24) ANAPHYLAXIS shellfish derived [SHELLFISH DERIVED] Allergy (Severe, Verified 07/18/24 08:24) ANAPHYLAXIS diltiazem [Cardizem] Allergy (Unknown, Verified 07/18/24 08:24) sob and leg swelling gabapentin [GABAPENTIN] Allergy (Unknown, Verified 07/18/24 08:24) UNKNOWN-PATIENT REFUSES gadobutrol [Gadavist] Allergy (Unknown, Verified 07/18/24 08:24) Unknown iopromide [Ultravist] Allergy (Unknown, Verified 07/18/24 08:24) Unknown losartan Adverse Reaction (Mild, Verified 07/18/24 08:24) Abdominal Pain Tobacco use date assessed: 11/10/23 Fall risk assessment: No Falls in past year Last assessed Fall Risk: 07/18/24 Dental Screening Dental Screen Date: 11/10/23 HPI DM f/u per pt request HPI Details Patient is here for follow-up for diabetes. 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 She does not want any statins and she is not on an Tanner or an Arb. Her A1c is 10.9 today. She takes no meds for diabetes. She has been referred and on the past, patient reports that she does not want to go back. Also refuses a nephrology consult. Refuses meds for diabetes, and refuses ARB/TANNER. Patient understands and symptoms of hypoglycemia correct it. Patient's eye exam is up-to-date. 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 H/O lumbosacral spine surgery History of cholecystectomy Family History Father Prostate cancer Mother Kidney disease Social History Housing: House Alcohol intake: never Patient Tobacco Use Status: Never used Tobacco e-Cigarette/Vaping Use: Never Used service: No Current occupational status: retired Current occupation: Rt handed Cognitive needs: No Hearing needs: No Vision needs: No Questionnaire Thrive Questionnaire Date Thrive assessed: 07/18/24 I am a: Patient What is your living situation today?: I have a steady place to live Within the past 12 months, did the food you bought not last and you didn't have the money to get more?: Often true Within the past 12 months, did you worry whether your food would run out before you got money to buy more?: Often true Do you have trouble paying for medicines?: No Do you have trouble getting transportation to medical appointments?: No Do you have trouble paying your heating and electricity bill?: No Do you have trouble taking care of your child, family member or friend?: No Do you have trouble with day-to-day activities such as bathing, preparing meals, shopping, managing finances, etc.?: No Are you currently unemployed and looking for a job?: No Are you interested in more education?: No Please select the resources that you would like help with: None Currently or been in a relationship where the following occur: No concerns reported THRIVE Score: 2 YONY-7 AMB Questionnaire YONY-7 Date YONY - 7 assessed: 04/10/24 Source: Developed by Drs. Pasha Johnson, Danii Mann, Farhad Reed and colleagues, with an educational sandeep from [employer]. Physical exam (Primary Care) Vital Signs: Last Vital Signs Pulse 72 07/18/24 08:23 BP 138/72 07/18/24 08:23 Pulse Ox 98 07/18/24 08:23 BMI result Body Mass Index 32.8 Tobacco/Smoking Status: Tobacco use Status Tobacco use date assessed 11/10/23 07/18/24 08:25 Patient Tobacco Use Status Never used Tobacco 07/18/24 08:25 e-Cigarette/Vaping Use Never Used 07/18/24 08:25 Thrive Assessment: Date of Thrive Assessment Date Thrive assessed 07/18/24 07/18/24 08:25 Currently or been in a relationship where the following occur: No concerns reported Const General: cooperative, comfortable and no acute distress Resp Effort & Inspection: normal respiratory effort Auscultation: clear to auscultation bilaterally Cardio Rate: regular rate Rhythm: abnormal rhythm irregularly irregular Heart sounds: S1 normal heart sound present and S2 normal heart sound present Extrem Other: right foot, third toe (distal aspect) amputated. first toe curling medially. large plantar first toe with large callous. + sensation bilat with use of monofilament, onychomycosis noted bilat. Psych Appearance: grossly normal Mental Status: mental status grossly normal Speech and movement: Normal speech and movement present Results AMB Hemoglobin A1c AMB Hemoglobin A1c 10.9 % Last Edit by León Aparicio CMA on 07/18/24 08:56 Coding Level of Care Code Est Pt Level 3 (16267) Diagnoses Uncontrolled diabetes mellitus with hyperglycemia E11.65 Assessment & Plan Assessment & Plan (1) Uncontrolled diabetes mellitus with hyperglycemia: Code(s): E11.65 - Type 2 diabetes mellitus with hyperglycemia Category: Medical Plan: pt refuses meds (for renal protection, choles, diabetes). Orders: Orders Comprehensive [place]. Panel Fast Today E11.65 - Type 2 diabetes mellitus with hyperglycemia TSH reflex Free T4 Today E11.65 - Type 2 diabetes mellitus with hyperglycemia UA CC w/rflx Micro + Cult Today E11.65 - Type 2 diabetes mellitus with hyperglycemia Microalbumin, Random (w Creat) Today E11.65 - Type 2 diabetes mellitus with hyperglycemia AMB Hemoglobin A1c Today Z13.9 - Encounter for screening, unspecified Complete Blood Count Auto Diff Today E11.65 - Type 2 diabetes mellitus with hyperglycemia Lipid Panel Today E11.65 - Type 2 diabetes mellitus with hyperglycemia
== END 2024-07-18 09:11 | disposition home or self-care (01) ==
PROVIDERS: PCP Nurse Practitioner Family; Visit Provider Nurse Practitioner Family
DX: Z13.9 Encounter for screening, unspecified (principal); E11.65 Type 2 diabetes mellitus with hyperglycemia

== ENCOUNTER → 2024-07-18 08:19 | Outpatient (BNVA) | payer MEDICARE, SELFPAY | PROVIDERS: PCP Nurse Practitioner Family; Visit Provider Nurse Practitioner Family | DX: E11.65 Type 2 diabetes mellitus with hyperglycemia (principal) | CPT/HCPCS: 83036; 99212 ==

== ENCOUNTER → 2024-11-02 10:07 | Outpatient (BNV) | payer MEDICARE, SELFPAY | PROVIDERS: PCP Nurse Practitioner Family; Visit Provider Radiology Diagnostic Radiology | DX: M19.071 Primary osteoarthritis, right ankle and foot (principal) | CPT/HCPCS: 73620 ==

== ENCOUNTER 2025-01-11 10:37 | Outpatient (REF) | payer MEDICARE, SELFPAY ==
--- OUTSIDE RECORDS SUMMARY | 2025-01-11 13:00 | XMS_ITS | Encounter Summary ---
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 callus right foot rt bunion toenail nail fungus * Consultation (Routine) - Authorized Specialty Diagnoses / Procedures Referred By Contact Referred To Contact Podiatry / Orthopaedic Surgery Diagnoses Callus Mary Carmen King MD [address] [place] [address] Phone: tel: fax: Anoop Ortiz DPM [address] [address] Phone: tel: fax: Referral ID Status Reason Start Date Expiration Date Visits Requested Visits Authorized [id number] Authorized Specialty Services Required 12/30/2024 12/30/2025 1 1 Encounter Details Date Type Department Care Team ([facility] st Contact Info) Description 01/09/2025 8:45 AM EDT Consult Orthopedic Surgery - [place] [address] [phone] Domingo Ramos DPM [address] [address] Poorly controlled type 2 diabetes mellitus with [...] Sharp/dull sensation diminished, protective sensation diminished on [place]. Peripheral neuropathy throughout the feet bilaterally. ORTHOPEDIC: [...] AM EDT Office Visit Orthopedic Surgery - [place] [address] [phone] Domingo Ramos DPM [address] [address] documented as of this encounter Visit Diagnoses Diagnosis Poorly controlled type 2 diabetes mellitus with neuropathy ([facility] V24, [facility] V28)- Primary History of amputation of lesser toe of right foot ([facility] V24) Callus Corns and callosities Dermatophytosis, nail Dermatophytosis of nail Ulcer of right heel, with fat layer exposed (CMS/[facility] V24, [facility] V28) documented in this encounter Orders Outpatient Referral Count Last Ordered Date st Ordered Date AMB REFERRAL TO PODIATRY 1 01/09/2025 documented in this encounter Care Teams Metal Hanging Supervisor Relationship Specialty Start Date End Date Kiley Mazariegos NP [address] [place] [address] [place] [address] PCP - General Family Medicine 3/29/19 documented as of this encounter
--- OUTSIDE RECORDS SUMMARY | 2025-01-11 13:00 | XMS_ITS | Clinical Summary ---
Author Organization [facility] Address [address] [place] [address] Phone Care Team Providers Care Heel Scourer Name Role Phone Kiley Mazariegos LORENA Primary Care Provider [phone] Encounters Date Type Department Care Team Description 01/09/2025 8:45 AM EDT Consult Orthopedic Surgery [facility] [address] [phone] Domingo Ramos, HORACE Poorly controlled type 2 diabetes mellitus with neuropathy (CMS/HCC V24, CMS/[facility] V28) (Primary Dx); History of amputation of lesser toe of right foot (CMS/HCC V24); Callus; Dermatophytosis, nail; Ulcer of right heel, with fat layer exposed (CMS/[facility] V24, CMS/[facility] V28) from Last 3 Months [...] Orthopedic Surgery [facility] [address] [phone] Domingo Ramos, HORACE [address] [address] Health Maintenance Due Date Last Done Comments [...] age to complete this topic Insurance MEDICARE [facility] Care Teams Heel Scourer Relationship Specialty Start Date End Date Kiley Mazariegos NP [address] [place] [address] [address] [place] [phone] PCP - General Family Medicine 11/25/18
[2025-01-11 13:29] LABS: MANUAL DIFF FLAG NO
[2025-01-11 13:42] LABS: Basophils Percent Auto 0.4 % (0-2); Eosinophils Absolute Auto 0.1 X10*3/uL (0.0-0.4); Eosinophils Percent Auto 1.9 % (0-4); Hemoglobin 13.4 g/dl (12.0-16.0); Imm Gran Abs Auto 0.04 X10*3/uL (0.00-0.03); Imm Gran Pct Auto 0.6 % (0.0-0.4); Lymphocytes Absolute Auto 1.1 X10*3/uL (1.2-4.9); Lymphocytes Percent Auto 16.3 % (20-40); Mean Corpuscular HGB Conc 33.5 g/dl (31.0-35.0); Mean Corpuscular Hemoglobin 30.3 pg (27.0-33.0); Mean Corpuscular Volume 90.5 fL (80.0-98.0); Mean Platelet Volume 11.5 fL (9.4-12.3); Monocytes Absolute Auto 0.5 X10*3/uL (0.1-1.2); Neutrophils Absolute Auto 4.9 x10*3/uL (2.0-8.3); Neutrophils Percent Auto 73.8 % (45-73); Platelet Count 169 X10*3/uL (160-400); Red Blood Count 4.42 X10*6/uL (4.20-5.50); Red Cell Distribution Width 12.4 % (11.0-16.0); White Blood Count 6.7 X10*3/uL (4.8-10.8)
[2025-01-11 14:34] LABS: Alanine Aminotransferase 18 U/L (0-31); Albumin Level 4.3 g/dL (3.5-5.0); Alkaline Phosphatase 63 U/L (39-117); Anion Gap 15 (12-20); Aspartate Amino Transferase 23 U/L (5-31); Bilirubin Total 0.7 mg/dL (0.0-1.0); Blood Urea Nitrogen 24 mg/dL (9-16); Calcium 9.2 mg/dL (8.4-10.2); Carbon Dioxide 25 mmol/L (22-29); Chloride 104 mmol/L (96-108); Cholesterol 146 mg/dL (<200); Estimated Glomerular Filt Rate 43; Glucose Fasting 281 mg/dL (60-99); HDL Cholesterol 30 mg/dL (>40); LDL Cholesterol Calculated 96 mg/dL (<100); Potassium 4.7 mmol/L (3.3-5.1); Sodium 139 mmol/L (135-145); Total Protein 7.7 g/dL (6.5-8.0); Triglycerides 104 mg/dL (<150)
[2025-01-11 14:41] LABS: TSH reflex Free T4 1.61 uIU/mL (0.32-4.0)
== END 2025-01-11 10:38 | disposition home or self-care (01) ==
LOC: HO.HMGCLDS 10:37
PROVIDERS: PCP Nurse Practitioner Family; Visit Provider Nurse Practitioner Family
DX: E11.65 Type 2 diabetes mellitus with hyperglycemia (principal); Z13.9 Encounter for screening, unspecified
CPT/HCPCS: 36415; 80053; 80061; 83036; 84443; 85025; 96127; 99212

== ENCOUNTER 2025-01-11 10:37 | Outpatient (AMB) | payer MEDICARE, SELFPAY ==
[2025-01-11 11:06] VITALS: BP 132/70; PULSE 76; O2SAT 97; BMI 31.9
--- NOTE | 2025-01-11 11:06 | A.OFFPC_ITS ---
Vital Signs 01/11/25 11:06 Height 5 ft 5 in Weight 192 lb BMI 31.9 BP 132/70 Blood Pressure Location Lt brachial Position Sitting Pulse 76 Pulse Source Pulse Oximeter Pulse Oximetry (%) 97 Oxygen Delivery Method Room Air Intake Visit Reasons: F/U-PT requested reschedule Allergies Iodinated Contrast Media [IV Dye, Iodine Containing] Allergy (Severe, Verified 01/11/25 11:45) ANAPHYLAXIS shellfish derived [SHELLFISH DERIVED] Allergy (Severe, Verified 01/11/25 11:45) ANAPHYLAXIS diltiazem [Cardizem] Allergy (Unknown, Verified 01/11/25 11:45) sob and leg swelling gabapentin [GABAPENTIN] Allergy (Unknown, Verified 01/11/25 11:45) UNKNOWN-PATIENT REFUSES gadobutrol [Gadavist] Allergy (Unknown, Verified 01/11/25 11:45) Unknown iopromide [Ultravist] Allergy (Unknown, Verified 01/11/25 11:45) Unknown losartan Adverse Reaction (Mild, Verified 01/11/25 11:45) Abdominal Pain Medication List - Last Reconciled 01/11/25 by ROSSY Nunes- apixaban (Eliquis) 5 mg PO BID metoprolol tartrate 100 mg (2 x 50 mg) PO BID 90 days Tobacco use date assessed: 01/11/25 Fall risk assessment: No Falls in past year Last assessed Fall Risk: 01/11/25 Dental Screening Dental Screen Date: 01/11/25 Did you have a dental visit in the last 12 months?: Yes Did you have a dental problem in the last 6 months where you did not have access to dental care?: No Was dental information given to patient?: Patient has dentist HPI F/U-PT requested reschedule HPI Details Chief Complaint Uncontrolled blood sugar levels with an A1c of 11.7 History of Present Illness The patient is a 74-year-old female presenting with uncontrolled diabetes mellitus and a non-healing ulcer on the right foot. Her diabetes is currently not managed with any medications or insulin, contributing to an elevated hemoglobin A1c of 11.7. She promises to address this issue by her next follow-up but has refused medical intervention at this time. The ulcer on the right foot, particularly at the MTP joint on the plantar aspect, experienced delayed healing following a callus removal procedure, likely exacerbated by chronic hyperglycemia. She follows up with the wound care center and podiatry for management. Her history includes chronic atrial fibrillation, under monitoring by cardiology, and no acute cardiac symptoms were noted. She has declined preventive health screenings like colonoscopies and mammograms. No fevers or chills were reported concerning the foot ulcer. The ulcer may occasionally drain, and the patient maintains self-care for dressing changes when not attended by healthcare providers. Social History - Refusal of screenings: colonoscopy and mammograms - Independent in dressing management for the foot ulcer - Active engagement with multiple specia lists: cardiology, wound center, and podiatry Health Maintenance - Refused colon screening and mammograms - Elevated hemoglobin A1c at 11.7 - Regular follow-up appointments with sp ecialists: cardiology, wound center, and podiatry Review of Systems - Cardiovascular: Denies chest pain; has chronic atrial fibrillation - Respiratory: Denies shortness of breat h; lungs clear - Endocrine: Reports poorly controlled d iabetes - Dermatologic: Reports non-healing foot ulcer with intermittent drainage - Constitutional: Denies fevers and chil ls Physical Exam General: Cooperative, healthy appearing, comfortable, no acute distress and well developed Orientation: Patient oriented x3 Limitations: No limitations Head: Normal to inspection Ears: Hearing grossly normal bilaterally Nose: Normal external nose present Face and sinus: Normal facial exam Eyes: Appearance normal, both eyes and all related structures Neck: Normal visual inspection and Yes full ROM Respiratory: Fairly clear bilaterally Cardiovascular: Irregularly irregular rhythm. Normal S1 and S2 GI: Normal to inspection. Soft to palpation and nontender Skin: No rashes or lesions noted Neuro: Patient oriented x3 Extremities: Minimal to no sensation with use of monofilament to feet. Right foot wound at the right MTP joint plantar aspect with a black eschar and dressing around it. Results - Labs: Hemoglobin A1c of 11.7 Plan Diabetes management remains a critical point, underlining the urgency to lower the hemoglobin A1c and monitor dietary changes, though current medical intervention was declined. Ongoing cardiology evaluation for atrial fibrillation will persist to ensure cardiac stability. For the non-healing right foot ulcer, routine follow-up continues at the wound center and with podiatry to aid recovery. Patient education centered around the importance of preventive care measures, like screenings, despite current patient declination, withholding definitive measures unless reevaluated with the patient. Discussion Notes I explained the impact of uncontrolled diabetes on her health, particularly affecting wound healing in the case of her foot ulcer. I discussed diabetes management options, including medications and insulin, but acknowledged her decision to presently decline these. We spoke about the potential implications of poorly controlled diabetes, including slower wound healing. The need for consistent cardiology follow-up for her chronic atrial fibrillation was emphasized. I informed her about the importance of preventive screenings like colonoscopies and mammograms, despite her current refusal, to highlight comprehensive care and early detection of potential issues. We agreed on regular monitoring of her foot ulcer with specialists and reviewed the importance of adherence to care guidelines and appointments. Patient Instructions - Monitor blood sugar levels regularly - Follow up with the wound care center a nd supervisor [employer] as scheduled - Maintain foot care and hygiene - Report any signs of infection, such as increased warmth, redness, or swelling - Consider discussing the importance of screenings and preventive measures - Schedule a follow-up appointment to re assess diabetes management plan and foot ulcer progress 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 1. Little interest or pleasure in doing things: not at all 2. Feeling down, depressed, or hopeless: not at all 3. Trouble falling or staying asleep, or sleeping too much: not at all 4. Feeling tired or having little energy: not at all 5. Poor appetite or overeating: not at all 6. Feeling bad about yourself - or that you are a failure or have let yourself or your family down: not at all 7. Trouble concentrating on things, such as reading the newspaper or watching television: not at all 8. Moving or speaking so slowly that other people could have noticed. Or the opposite - being so fidgety or restless that you have been moving around a lot more than usual: not at all 9. Thoughts that you would be better off or of hurting yourself in some way: not at all Total score: 0 Depression Screening Interpretation: Negative Depression Screening Done: Yes 50072 - PHQ-9 Billing: Yes Source: Developed by Drs. Pasha Johnson, Danii Mann, Farhad Reed and colleagues, with an educational sandeep from [employer]. Thrive Questionnaire Date Thrive assessed: 01/11/25 I am a: Patient What is your living situation today?: I choose not to answer this question Within the past 12 months, did the food you bought not last and you didn't have the money to get more?: I choose not to answer this question Within the past 12 months, did you worry whether your food would run out before you got money to buy more?: I choose not to answer this question Do you have trouble paying for medicines?: I choose not to answer this question Do you have trouble getting transportation to medical appointments?: I choose not to answer this question Do you have trouble paying your heating and electricity bill?: I choose not to answer this question Do you have trouble taking care of your child, family member or friend?: I choose not to answer this question Do you have trouble with day-to-day activities such as bathing, preparing meals, shopping, managing finances, etc.?: I choose not to answer this question Are you currently unemployed and looking for a job?: I choose not to answer this question Are you interested in more education?: I choose not to answer this question Please select the resources that you would like help with: None THRIVE Score: 0 AUDIT C Alcohol Use Questionnaire (AUDIT-C) 1. How often do you have a drink containing alcohol?: Never 3. How often do you have six or more drinks on one occasion?: Never Total Score: 0 Score Reviewed/Action Taken: Yes YONY-7 AMB Questionnaire YONY-7 Date YONY - 7 assessed: 01/11/25 Feeling nervous, anxious, or on edge: 0 = Not at all Not being able to stop or control worryin = Not at all Worrying too much about different things: 0 = Not at all Trouble relaxin = Not at all Being so restless that it is hard to sit still: 0 = Not at all Becoming easily annoyed or irritable: 0 = Not at all Feeling afraid as if something awful might happen: 0 = Not at all Total YONY-7 score (0-4 normal; 5-9 mild; 10-14 moderate; 15-21 severe): 0 Source: Developed by Drs. Pasha Johnson, Danii Mann, Farhad Reed and colleagues, with an educational sandeep from [employer]. YONY-7 Assessment Billing YONY-7 Assessment Tool: YONY-7 Assessment 84176 Physical exam (Primary Care) Vital Signs: Last Vital Signs Pulse 76 01/11/25 11:06 BP 132/70 01/11/25 11:06 Pulse Ox 97 01/11/25 11:06 Oxygen Delivery Method Room Air 01/11/25 11:06 BMI result Body Mass Index 31.9 Tobacco/Smoking Status: Tobacco use Status Tobacco use date assessed 01/11/25 01/11/25 11:18 Patient Tobacco Use Status Never used Tobacco 01/11/25 11:08 e-Cigarette/Vaping Use Never Used 01/11/25 11:08 PHQ-9: PHQ-9 Score PHQ-9: Total score 0 01/11/25 11:39 Depression Screening Interpretation: Negative Thrive Assessment: Date of Thrive Assessment Date Thrive assessed 01/11/25 01/11/25 11:08 Results AMB Hemoglobin A1c AMB Hemoglobin A1c 11.7 % Last Edit by León Aparicio CMA on 01/11/25 11 :39 Results Reviewed Results Reviewed: Laboratory Last Values Hgb A1c (Clinic) 11.7 % (4.0-6.0) H 01/11/25 11:38 Coding Level of Care Code Est Pt Level 4 (25953) Diagnoses Uncontrolled diabetes mellitus with hyperglycemia E11.65 Additional Codes YONY-7 Assessment Billing - YONY-7 Assessment Tool: YONY-7 Assessment 20227 ([id number]) PHQ-9 - 35633 - PHQ-9 Billing: Yes ([id number]) Assessment & Plan Assessment & Plan (1) Uncontrolled diabetes mellitus with hyperglycemia: Code(s): E11.65 - Type 2 diabetes mellitus with hyperglycemia Category: Medical Plan . Orders: Orders AMB Hemoglobin A1c Today Z13.9 - Encounter for screening, unspecified
--- OUTSIDE RECORDS SUMMARY | 2025-01-11 11:44 | XMS_ITS | Clinical Summary ---
Author Organization [facility] Address [address] [place] [address] Phone Care Team Providers Care [employer] Name Role Phone Kiley Mazariegos LORENA Primary Care Provider [phone] Encounters Date Type Department Care Team Description 01/09/2025 8:45 AM EDT Consult Orthopedic Surgery [facility] [address] [id number] Domingo Ramos, HORACE Poorly controlled type 2 diabetes mellitus with neuropathy (CMS/HCC V24, [facility] V28) (Primary Dx); History of amputation of lesser toe of right foot (CMS/HCC V24); Callus; Dermatophytosis, nail; Ulcer of right heel, with fat layer exposed ([facility] V24, [facility] V28) from Last 3 Months Social History Tobacco Use Types Packs/Day Years Used Date Smoking Tobacco: Never Assessed Comments Unknown Sex and Gender Information Value Date Recorded Sex Assigned at Not on file Legal Sex Female 2:20 PM EST Gender Identity Not on file Sexual Orientation Not on file Last Filed Vital Signs Vital Sign Reading Time Taken Comments Blood Pressure - - Pulse - - Temperature - - Respiratory Rate - - Oxygen Saturation - - Inhaled Oxygen Concentration - - Weight 83.9 kg (185 lb) 01/09/2025 9:00 AM EDT Height 170.2 cm (5' 7 ) 01/09/2025 9:00 AM EDT Body Mass Index 28.98 01/09/2025 9:00 AM EDT Plan of Treatment Upcoming Encounters Date Type Department Care Team (Late st Contact Info) Description 01/17/2025 8:30 AM EDT Office Visit Orthopedic Surgery [facility] [address] [id number] Domingo Ramos, HORACE [address] [address] Health Maintenance Due Date Last Done Comments Breast Cancer Screening 1950 Diabetes: Annual GFR (Glomerular Filtration Rate) 1952 Diabetes: Annual Foot Exam 1962 Diabetes: Annual Retina Eye Exam 1962 DTaP,Tdap,and Td Vaccines (1 - Tdap) 1971 Pneumococcal Vaccine: 50+ Years (1 of 2 - PCV) 1971 Zoster Vaccines (1 of 2) 2002 RSV Immunization Adult Patients (1 - Risk 60-74 years 1-dose series) 2012 COVID-19 Vaccine (4 - 2023-2 5 season) 2024 09/08/2021, 11/12/2020, 10/14/2020 Cholesterol Screening (Lipid Panel) 01/01/2025 Colorectal Cancer Screening: Colonoscopy 01/01/2025 Depression Screening 01/01/2025 Falls Risk Assessment 01/01/2025 Hepatitis C Screening 01/01/2025 Medicare Annual Wellness Visit 01/01/2025 Osteoporosis Screening (Bone Density Screening) 01/01/2025 Social Influencers of Health Screening 01/01/2025 Diabetes: Annual Urine Albumin-Creatinine Ratio (uACR) 01/09/2025 Diabetes: Blood Sugar Contro l Test (HGBA1C) 01/09/2025 Influenza Vaccine (Season Ended) 2025 HIB Vaccines Aged Out No longer eligi ble based on patient's age to complete this topic HPV Vaccines Aged Out No longer eligi ble based on patient's age to complete this topic Hepatitis A Vaccines Aged Out No long er eligible based on patient's age to complete this topic Hepatitis B Vaccines Aged Out No long er eligible based on patient's age to complete this topic IPV Vaccines Aged Out No longer eligi ble based on patient's age to complete this topic MMR Vaccines Aged Out No longer eligi ble based on patient's age to complete this topic Meningococcal ACWY Vaccine Aged Out N o longer eligible based on patient's age to complete this topic Meningococcal B Vaccine Aged Out No l onger eligible based on patient's age to complete this topic RSV Immunization Patients Under 20 months Aged Out No longer eligible b ased on patient's age to complete this topic Varicella Vaccines Aged Out No longer eligible based on patient's age to complete this topic Insurance MEDICARE [facility] Care Teams [employer] Relationship Specialty Start Date End Date Kiley Mazariegos NP [address] [place] [address] [address] [place] [id number] PCP - General Family Medicine 11/25/18
--- OUTSIDE RECORDS SUMMARY | 2025-01-11 11:44 | XMS_ITS ---
Author Organization [facility] Address [address] [place] [address] Care Team Providers Care Director Pharmaceutical Name Role Phone Nate Olvera Primary Care Provider Adi Camargo Unavailable [phone] Allergies Allergen (clinical drug ingredient) Drug/Non Drug Allergy documented on EMR Reaction Allergy Type Onset Date Status gabapentin Gabapentin Pt will not take 01/06/18 Drug Allergy Active Iodine Unknown Drug Allergy Active Shellfish (FN) Shellfish-derived Products Unknown Drug Allergy Active REASON FOR VISIT Skin Problem, Open sore Medications Medication SIG (Take, Route, Frequency, Duration) Notes Start Date End Date Status Ciclopirox Olamine 0.77 % 1 application Externally Twice a day to skin of feet including between the toes for 30 days Active Eliquis 5 MG Orally Active Metoprolol Tartrate 25 MG 1 tablet with food Orally Twice a day Active Extra Depth Orthopedic Shoes, (1) Pair With (3) Pair Custom Heat Molded Multidensity Innersoles Dx: NIDDM/PVD(E11.51), Hammertoe Foot Deformity(M20.41,M20.42) , Preulcerative Skin Lesion(s)(L85.1) Wear Daily for 365 days 06/18/2023 Active Ammonium Lactate 12 % APPLY TO AFFECTED AREA EXTERNALLY TO FEET TWICE A DAY for 30 Not-Taking Iodosorb 0.9 % as directed External ly Apply to ulceration daily with dry sterile dressing for 30 days 10/10/2024 Active Social History Tobacco Use: Social History Observation Description Date Details (start date - stop date) Never Smoker NA - NA Tobacco use other than smoking: Question Answer Notes Are you an other tobacco user? No Tobacco Control (Standard) Question Answer Notes Tobacco use: Nonsmoker Additional Findings: Tobacco non-user Current no nsmoker AUDIT-C (Standard) Question Answer Notes Did you have a drink containing alcohol in the p ast year? 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 L97.512 Assessments Encounter Date Diagnosis (ICD Code) Assessment Notes Treatment Notes Treatment Clinical Notes Section Notes 11/03/2024 Tinea pedis of both feet (ICD-10 - B35.3) 11/03/2024 Ischemic 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 (ICD-10 - L97.512) Response to treatment Improving Unresolved Patient Educated with: WOUND CARE INSTRUCTIONS.p df (WOUND CARE INSTRUCTIONS.p df) Plan Of Treatment Medication Medication Name Sig Start Date Stop Date Notes Ciclopirox Olamine 0.77 % 1 application Externally Twice a day to skin of feet including between the toes for 30 days Treatment Notes Assessment Notes Ischemic 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 Patient Educated with: WOUND CARE INSTRUCTIONS.pdf (WOUND CARE INSTRUCTIONS.pdf) Pending Test Test Name Order Date [id number] SKIN/TISSUE 11/03/2024 Next Appt Details Follow Up: 4 Weeks, Reason: Provider Name:Adi Chao , 01/16/2025 11:30:00 AM, [address] [place], [address], Procedure Notes * Category Sub-Category Detail Notes Debride skin and subQ Open wound ISCHEMIC: Physician of record performed open wound selective debridement of devitalized necrotic/nonviable soft tissue, fibrin, exudate, epidermis, dermis, thru skin and subcutaneous fat tissue, first 20 sq cm or less, using sharp dissection with sterile 15 blade, and/or tissue nippers. ANESTHESIA was accomplished TOPICALLY with Lidocaine Hydrochloride Jelly 2 percent, Sterile antibiotic dressing applied. Hemostasis was controlled through direct pressure. Post debridement measurements: 28mm x 28mm x 3-4mm. Character of the wound post debriement is stable (50628) Progress Notes * Anastasiya CUADRA ADOB:[birth year] (74 yo F)Acc No.[id number]:11/03/2024 Progress Notes Patient:?Anastasiya CUADRA Provider:?Adi Chao DPM :1950???Age:74 Y???Sex:Female D ate:11/03/2024 Address:[address] [place] [address] [id number] Pcp:JIMMY Carrillo Subjective: * Chief Complaints: * ???Skin ProblemOpen sore * HPI: ???At Risk footcare:?Pt States Last PCP Visit:?Date?09/18/2024 ???Skin problems:?Treatments:?Medication (Ciclopirox Olamine 0.77 Cream), admits intermittent adherence to recommended application, [facility]?Local care consisting of daily distilled water wound cleanse, topical antibiotic as recommended, application of sterile dressing, offloading/pressure reduction via rest, shoe modification, insert modification, accommodative padding, assisted ambulation via cane/ crutch/ wheel chair, and surgical debridement.? * ROS:?General/Constitutional:?Nausea?denies.?Vomiting?denies.?Hunger Thirst?denies.?Loss appetite?denies.?Chills?denies.?Fatigue?denies.?Fever?denies.?Night Sweats?denies.?Unexplained weight loss?denies.?Unexplained weight gain?denies.?HEENTM:?Dentures?denies.?Dizziness?denies.?Glasses/contacts?denies.?Retinopathy?den ies.?Blurred/double vision?denies.?TMJ?denies.?Discharge/drainage?denies.?Implants?denies.?Sore throat?denies.?Dental implants?denies.?Hard of hearing ?denies.?Difficulty chewing/swallowing/speaking?denies.?Nose bleeds?denies.?Sore mouth?denies.?Respiratory:?On O xygen?denies.?Pneumonia/pleurisy?denies.?Bronchitis?denies.?Emphysema?denies.?Co ughing?denies.?Cough blood?denies.?Shortness of breath?denies.?Wheezing?denies.?Cardiovascular:?Pacemaker?denies.?MVP?denies.?WPW?denies.?CHF?denies.?Heart attack?denies.?Septal defect?denies.?Rapid beat?denies.?Chest pain ?denies.?Atrial Fib.?denies.?Murmur/Palpitations?denies.?Gastrointestinal:?Hemorrhoids?denies.?Stomach/Abdominal pain?denies.?Dark blood stool?denies.?Irritable bowel ?denies.?Constipation?denies.?Diarrhea?denies.?Hematology:?Swelling?denies.?Clots?denies.?Varicose Veins?denies.?Bruising?admits.?Bleeding problem?admits.?Genitourinary:?Blood urine?denies.?Frequent/Painfu/urination/bladder control?denies.?Kidney stones?denies.?Infection (UTI)?denies.?Nephropathy?denies.?sex trans dis (STD)?denies.?Prostate?denies.?Musculoskeletal:?Hammertoes?admits.?Bunions?denies.?Back Pain?denies.?Muscle Cramps/ Resting?denies.?Muscle cramps / walking?denies.?Generalized aches and pains?denies.?Weakness?denies.?Integ.:?Claudio?denies.?Scars?denies.?Corns/calluses?admits.?Ingrown nails?admits.?Painful nails?admits.?Open Sores?denies.?Rashes?denies.?Neurologic:?Difficulty sleeping?denies.?Brain disorder?denies.?Numbness?denies.?Balance t rouble?denies.?Confusion?denies.?Fainting/blackouts?denies.?Tingling?denies.?Bry mors?denies.? * Medical History:? * Surgical History:?knee surge ry cholecystectomy rotator cuff tear repair Rubio Bunionectomy R, HT R2,3, ORIF R2nd MTPJ 05/19/2018nose bleed cauterized nose 05/02/2022 * Hospitalization/Major Diagno stic Procedure:?Denies Past Hospitalization * Family History:?Mother: dece ased.?Father: , foot problems.?Siblings: foot problems, diagnosed with Diabetic - NIDDM.?Spouse: .? * Social History:?Tobacco Use:?Tobacco use other than smoking?Are you an other tobacco user??No ?Tobacco Control (Standard)?Tobacco use:?Nonsmoker ?Additional Findings: Tobacco non-user?Current nonsmoker ???Drugs/Alcohol:?Drugs?Have you used drugs other than those for medical reasons in the past 12 months??No ???Miscellaneous:?Caffeine: yes, 1-2 cups per day. ?Children: yes, 2. ?Exercise: yes, walking. ?Marital status: . 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 ???Drug/Alcohol:?AUDIT-C (Standard)?Did you have a drink containing alcohol in the past year??No ?Points?0 ?Interpretation?Negative * Medications:?TakingEliquis 5 MG Tablet Orally Metoprolol Tartrate 25 MG Tablet 1 tablet with food Orally Twice a day Extra Depth Orthopedic Shoes, (1) Pair With (3) Pair Custom Heat Molded Multidensity Innersoles . Dx: NIDDM/PVD(E11.51), Hammertoe Foot Deformity(M20.41,M20.42), Preulcerative Skin Lesion(s)(L85.1) Wear Daily Ciclopirox Olamine 0.77 % Cream 1 application Externally Twice a day to skin of feet including between the toes Iodosorb 0.9 % Gel as directed Externally Apply to ulceration daily with dry sterile dressing Taking Eliquis 5 MG Tablet Orally Taking Metoprolol Tartrate 25 MG Tablet 1 tablet with food Orally Twice a day Taking Extra Depth Orthopedic Shoes, (1) Pair With (3) Pair Custom Heat Molded Multidensity Innersoles . Dx: NIDDM/PVD(E11.51), Hammertoe Foot Deformity(M20.41,M20.42), Preulcerative Skin Lesion(s)(L85.1) Wear Daily Taking Ciclopirox Olamine 0.77 % Cream 1 application Externally Twice a day to skin of feet including between the toes Taking Iodosorb 0.9 % Gel as directed Externally Apply to ulceration daily with dry sterile dressing Not-Taking/PRNAmmonium Lactate 12 % Cream APPLY TO AFFECTED AREA EXTERNALLY TO FEET TWICE A DAY Medication List reviewed and reconciled with the patientNot-Taking/PRN Ammonium Lactate 12 % Cream APPLY TO AFFECTED AREA EXTERNALLY TO FEET TWICE A DAY Medication List reviewed and reconciled with the patient * Allergies:?Gabapentin: Pt wi ll not take 01/06/hellfish-derived ProductsIodineyes[Allergies Verified] Objective: * Vitals:?Ht: 5ft 5in, Wt:190, BMI:31.61, Shoe size: 9EEE, BP:124/70mm Hg, BS: not taken, Ht-cm: 165.1 cm, Wt-k.18 kg. * ???Past Orders: ???Lab:HEMOGLOBIN A1C (GLYCO HEMOGLOBIN) (Order Date - 08/30/2024) (Collection Date & Time - 11/03/2024 12:09 PM) ? Value Reference Range ?HEMOGLOBIN A1C % (HH) 8.0 * Examination: ???Ophthalmology Referral: ?DIABETES EYE EXAM?Procedure Performed:?Yes ?Date of Exam Performed?07/10/2024 ?Retinal Screening Performed:?Yes ?Findings of Diabetic Eye Exam:?no retinopathy?Dermatologic: ?SKIN FINDINGS:?Skin exam reveals Keratotic lesion(s) located at, SUB MTH (s), 1, B/L , SUB MTH (s), 5, B/L, Plantar, Heel(s), B/L , Skin shows approximately 0 percent LESS, sign(s) of, erythema, scaling, in a moccasin fashion, no fissure(s) present, B/L.?ULCER:?LOCATION, Medial, Plantar, 1 MTH, RIGHT, SIZE, 25mm X 25mm X 3mm, BASE, fibro-granular, RIM, hyperkeratotic, UNDERMINING, mild, TRACKING, Sub Q with Fat layer exposed, DRAINAGE, serosanguineous, moderate, NECROTIC TISSUE, loosely-adherent, yellow slough, MALODOR, absent, CALOR, absent, ERYTHEMA, absent.? Assessment: * Assessment: 1.?Tinea pedis of both feet - B35.3???Specify :Acute problem, Uncomplicated (3),Rx drug management (4) Nonadherent to recommendations Response to treatment - Unchanged???2.?Ischemic 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 - L97.512 (Primary) ??Notes :Response to treatment Improving Unresolved??? Plan: * Treatment: 2.?Tinea pedis of both feet? Start Ciclopirox Olamine Cream, 0.77 %, 1 application, Externally, Twice a day to skin of feet including between the toes, 30 days, 120, Refills 3.?? * Procedures:?Debride skin and subQ:?Open wound?ISCHEMIC: Physician of record performed open wound selective debridement of devitalized necrotic/nonviable soft tissue, fibrin, exudate, epidermis, dermis, thru skin and subcutaneous fat tissue, first 20 sq cm or less, using sharp dissection with sterile 15 blade, and/or tissue nippers. ANESTHESIA was accomplished TOPICALLY with Lidocaine Hydrochloride Jelly 2 percent, Sterile antibiotic dressing applied. Hemostasis was controlled through direct pressure. Post debridement measurements: 28mm x 28mm x 3-4mm. Character of the wound post debriement is stable (66533).? * Procedure Codes:?74235 DEBRI DE SKIN/TISSUE * Preventive Medicine:? ??Counseling:?Discussion:?-13: Office or other outpatient visit for the evaluation and management of an established patient, which required a medically appropriate history and/or examination and LOW level of DECISION MAKING for: 1 STABLE ACUTE UNCOMPLICATED PROBLEM, 2 OR MORE MINOR PROBLEMS, OR 1 STABLE CHRONIC PROBLEM, THAT POSE(S) A LOW RISK FOR MORBIDITY/MORTALITY. The visit on the day of the encounter encompassed interpreting the data and educating the patient as to the nature of their condition, treatment options available according to their individual PMH, meds, allergies, and overall health/living conditions, as well as any potential risks or complications that may occur from a failure to adhere to, and participate in, the recommended course of therapy. The discussion included a complete verbal, and/or written explanation of the examination results, any x-rays taken, the proposed diagnosis, and outline of the treatment plan. A schedule for future care needs was also explained. The patient verbalized an understanding of the instructions at this time and agreed to be an active participant in their treatment. If the patient should think of any questions or concerns after the visit, I have encouraged the patient to call the office.?Consult:?The patient was counseled on the diagnosis, treatment options, and the CONT need for a, Wound Care Center Consult due to pedal risk of limb/life, Pt indicated understanding the recommendations and accepts this treatment plan.?Tinea Pedis:?The patient was AGAIN, counseled on the diagnosis, potential etiologies, and treatment options for their skin condition. We discussed the risks and benefits of each option from performing no treatment, to utilizing OTC topical skin creams, prescription topical creams, customized compounded topical medications, and, if necessary, to utilize oral antifungal therapy. We discussed the advantages and disadvantages of each possible treatment and importance for adherence to all the recommended therapies for optimum success and avoid potential complications such as open sore/infection/possible hospitalization. We discussed the potential effectiveness of each topical preparation as well as each ones possible side effects and/or patient medication interactions if oral therapy is selected. Patient questions re: the advantages and disadvantages of each treatment choice, medication use/dosage, successful outcomes, and application consistency were reviewed and the patient verbalized that all answers were clearly understood. The patient was told they can help alleviate symptoms by utilizing moisture absorbant innersoles with activated charcoal and baking soda, applying antifungal sprays daily, aerating toe web spaces at night by putting cotton or lambs wool between the toes, alternating shoe gear daily if possible so they can dry out, changing socks at least once during the day, wearing well-ventilated shoes or sandals. The patient has decided to apply antifungal skin creams to their feet as directed.?Ulcer:?A detailed plan of care was again reviewed with the patient. We emphasized the fact that the patient takes on an active participating role in the treatment process and emphasized to them that they are an included, valued, and important member of the wound healing team in order to reach an expedient successful outcome. The patient agreed to follow their medically recommended diet while increasing their protein intake if safely able to do so, maintain proper bodily hydaration, abide by weight-bearing restrictions at all times, quit all current smoking habits if any, and diligently follow any/all dressing change instructions. It was clearly made known to the patient that if they fail to do their part, they will likely extend their course of treatment as well as possibly increase their risk of adverse events including amputation. The patient was instructed on importance of proper wound care consisting of pressure reduction, and proper maintainance of a moist wound environment. The patient is to cleanse the wound with warm soapy water/peroxide/saline, or betadine BID based on product availability. The patient is to apply ( Rx FROM [facility] OR A ) Antibiotic to the wound and cover with a DSD as directed. The patient was instructed to change dressings according to orders, or PRN saturation, leaks. The patient was instructed to monitor and report any signs or symptoms of infection or any untoward reactions. Precautions Taken: Offloading/Pressure reduction via rest/ limited activity to essential to daily life only, cane/ crutches/ walker/ wheel chair - PT STATES DOES NOT DO A LOT OF WALKING, BUT WILL USE CRUTCHES OR WHEELCHAIR AT HOME TO DECREASE FOOT PRESSURE, shoe modification, accommodative padding, sharp debridement, and take/apply medication as directed. THE GOALS of wound debridement to remove devitilized tissue, decrease risk for infection, promote wound healing and prevent further complication were discussed/reviewed. Debridement frequency as indicated, cont Referral to Wound Care Center due to pedal risk of limb/life, [place] was contacted. When today's office notes are received, they state they will contact patient for appt.? ??Screening/Special Tests:?Fall Risk?Screening:?No falls in the past year ?FALLS: Screening for Future Fall Risk?Have you had any falls with injury in the past year??No * Follow Up:?4 Weeks * Images: * Sign off status: Completed true * Provider:?Adi Chao DPM Date:?2024 Generated for Marcio vick/José Miguel/Evita on:?01/11/2025 11:43 AM EDT History and Physical Notes * HPI (History of Present Illness) Category Sub-Category Detail Notes Category Not es Skin problems Treatments: Medication (Cicl opirox Olamine 0.77 Cream), admits intermittent adherence to recommended application, [facility] Local care consisting of daily distilled water wound cleanse, topical antibiotic as recommended, application of sterile dressing, offloading/pressure reduction via rest, shoe modification, insert modification, accommodative padding, assisted ambulation via cane/ crutch/ wheel chair, and surgical debridement At Risk footcare Pt States Last PCP Visit: Date: 09/18/2024 Examination Category Sub-Category Detail Notes Category Not es Dermatologic SKIN FINDINGS: Skin exam reveal s Keratotic lesion(s) located at, SUB MTH (s), 1, B/L , SUB MTH (s), 5, B/L, Plantar, Heel(s), B/L , Skin shows approximately 0 percent LESS, sign(s) of, erythema, scaling, in a moccasin fashion, no fissure(s) present, B/L ULCER: LOCATION, Medial, Pl giuseppe, 1 MTH, RIGHT, SIZE, 25mm X 25mm X 3mm, BASE, fibro-granular, RIM, hyperkeratotic, UNDERMINING, mild, TRACKING, Sub Q with Fat layer exposed, DRAINAGE, serosanguineous, moderate, NECROTIC TISSUE, loosely-adherent, yellow slough, MALODOR, absent, CALOR, absent, ERYTHEMA, absent Ophthalmology Referral DIABETES EYE EXAM Procedure Perform ed:: Yes ?Date of Exam Performed: 07/10/2024 Retinal Screening Performed:: Yes Findings of Diabetic Eye Exam:: no retin opathy
--- OUTSIDE RECORDS SUMMARY | 2025-01-11 11:44 | XMS_ITS ---
[facility] Organization [facility] Address [address] [place] [address] Care Team Providers Care Harbor Tug Captain Name Role Phone Nate Olvera Primary Care Provider Unajudie AllanierAdi Unavailable [phone] Allergies Allergen (clinical drug ingredient) Drug/Non Drug Allergy documented on EMR Reaction Allergy Type Onset Date Status gabapentin Gabapentin Pt will not take 01/06/18 Drug Allergy Active Iodine Unknown Drug Allergy Active Shellfish (FN) Shellfish-derived Products Unknown Drug Allergy Active REASON FOR VISIT Open sore Medications Medication SIG (Take, Route, Frequency, Duration) Notes Start Date End Date Status Extra Depth Orthopedic Shoes, (1) Pair With (3) Pair Custom Heat Molded Multidensity Innersoles Dx: NIDDM/PVD(E11.51), Hammertoe Foot Deformity(M20.41,M20.42) , Preulcerative Skin Lesion(s)(L85.1) Wear Daily for 365 days 06/18/2023 Active Metoprolol Tartrate 25 MG 1 tablet with food Orally Twice a day Active Ammonium Lactate 12 % APPLY TO AFFECTED AREA EXTERNALLY TO FEET TWICE A DAY for 30 Not-Taking Iodosorb 0.9 % as directed External ly Apply to ulceration daily with dry sterile dressing for 30 days 10/10/2024 Active Ciclopirox Olamine 0.77 % 1 application Externally Twice a day to skin of feet including between the toes for 30 days Active Eliquis 5 MG Orally Active Social History Tobacco Use: Social History [...] Negative Vital Signs Height 5ft 5in in 12/05/2024 Weight 190 lbs 12/05/2024 BMI 31.61 kg/m2 12/05/2024 Blood pressure systolic 120 mm Hg 12/06/19 25 Blood pressure diastolic 80 mm Hg 025 Procedures Procedure Date Ordered Date Performed Result Body Sit e 77291-KMONIUW SKIN/TISSUE 12/05/2024 N/A Encounters Encounter Location Date Provider Diagnosis [facility] [address] [address] 12/05/2024 Adi Chao Ischemic 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 L97.512 Assessments Encounter Date Diagnosis (ICD Code) Assessment Notes Treatment Notes Treatment Clinical Notes Section Notes 12/05/2024 Ischemic 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 (ICD-10 - L97.512) Response to treatment Improving Unresolved Patient Educated with: WOUND CARE INSTRUCTIONS.p df (WOUND CARE INSTRUCTIONS.p df) Plan Of Treatment Treatment Notes Assessment Notes Ischemic 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 Patient Educated with: WOUND CARE INSTRUCTIONS.pdf (WOUND CARE INSTRUCTIONS.pdf) Pending Test Test Name Order Date 36140-PWEJGTH SKIN/TISSUE 12/05/2024 Next Appt Details Follow Up: 4 Weeks, Reason: Provider Name:Adi Chao , 01/16/2025 11:30:00 AM, [address] [place] [address], [phone], Procedure Notes * Category Sub-Category Detail Notes [...] controlled through direct pressure. Post debridement measurements: 18mm x 18mm x 3-4mm. Character of the wound post debriement is stable (39844) Progress Notes * COUTURE, Anastasiya ADOB:[birth year] (74 yo F)Acc No.[id number]:12/05/2024 Progress Notes Patient:Anastasiya GARCIA Provider:?Adi Chao DPM :1950???Age:74 Y???Sex:Female D ate:12/05/2024 Address:[address] [place] [address], [phone] Pcp:JIMMY Carrillo Subjective: * Chief Complaints: * ???Open sore * HPI: ???At Risk footcare:?Pt States Last PCP Visit:?Date?09/18/2024 ???Skin problems:?Treatments:?Wound Care [facility] and Home [facility]?Local care consisting of daily distilled water wound cleanse, topical antibiotic as recommended, application of sterile dressing, offloading/pressure reduction via rest, shoe modification, insert modification, accommodative padding, assisted ambulation via cane/ crutch/ wheel chair at home - I use it more like a walker than anything else , and surgical debridement.? * ROS:?General/Constitutional:?Nausea?denies.?Vomiting?denies.?Hunger Thirst?denies.?Loss appetite?denies.?Chills?denies.?Fatigue?denies.?Fever?denies.?Night [...] ?Exercise: yes, walking. ?Marital status: . 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 ???Drug/Alcohol:?AUDIT-C (Standard)?Did you have a drink containing alcohol in the past year??No ?Points?0 ?Interpretation?Negative * Medications:?TakingCiclopiro x Olamine 0.77 % Cream 1 application Externally Twice a day to skin of feet including between the toes Eliquis 5 MG Tablet Orally Metoprolol Tartrate 25 MG Tablet 1 tablet with food Orally Twice a day Extra Depth Orthopedic Shoes, (1) Pair With (3) Pair Custom Heat Molded Multidensity Innersoles . Dx: NIDDM/PVD(E11.51), Hammertoe Foot Deformity(M20.41,M20.42), Preulcerative Skin Lesion(s)(L85.1) Wear Daily Iodosorb 0.9 % Gel as directed Externally Apply to ulceration daily with dry sterile dressing Taking Ciclopirox Olamine 0.77 % Cream 1 application Externally Twice a day to skin of feet including between the toes Taking Eliquis 5 MG Tablet Orally Taking Metoprolol Tartrate 25 MG Tablet 1 tablet with food Orally Twice a day Taking Extra Depth Orthopedic Shoes, (1) Pair With (3) Pair Custom Heat Molded Multidensity Innersoles . Dx: NIDDM/PVD(E11.51), Hammertoe Foot Deformity(M20.41,M20.42), Preulcerative Skin Lesion(s)(L85.1) Wear Daily Taking Iodosorb 0.9 % Gel as directed [...] not take 01/06/hellfish-derived ProductsIodineyes[Allergies Verified] Objective: * Vitals:?Ht:5ft 5in, Wt:190, BMI:31.61, Shoe size:9EEE, BP:120/80mm Hg, BS:224, Ht-cm: 165.1 cm, Wt-k.18 kg. * ???Past Orders: ???Lab:HEMOGLOBIN A1C (GLYCO HEMOGLOBIN) (Order Date - 08/30/2024) (Collection Date & Time - 11/03/2024 12:09 PM) ? Value Reference Range ?HEMOGLOBIN A1C % (HH) 8.0 * Examination: ???Ophthalmology Referral: ?DIABETES EYE EXAM?Procedure Performed:?Yes ?Date of Exam Performed?07/10/2024 ?Retinal Screening Performed:?Yes ?Findings of Diabetic Eye Exam:?no retinopathy?Dermatologic: ?ULCER:?LOCATION, Medial, Plantar, 1 MTH, RIGHT, SIZE, 15mm X 15mm X 3mm, BASE, fibro-granular, RIM, hyperkeratotic, UNDERMINING, mild, TRACKING, Sub Q with Fat layer exposed, DRAINAGE, serosanguineous, moderate, NECROTIC TISSUE, loosely-adherent, yellow slough, MALODOR, absent, CALOR, absent, ERYTHEMA, absent.? Assessment: * Assessment: 1.?Ischemic ulcer of right f oot with fat layer exposed - L97.512 (Primary)???Notes :Response to treatment Improving Unresolved??? Plan: * Treatment: * Procedures:?Debride skin and subQ:?Open wound?ISCHEMIC: Physician [...] controlled through direct pressure. Post debridement measurements: 18mm x 18mm x 3-4mm. Character of the wound post debriement is stable (46018).? * Procedure Codes:?49596 DEBRI DE SKIN/TISSUE * Preventive Medicine:? ??Counseling:?Consult:?The patient was counseled on the diagnosis, treatment options, and the CONT need for a, Wound Care Center Consult due to pedal risk of limb/life, Pt indicated understanding the recommendations and accepts this treatment plan.?Ulcer:?A detailed plan of care was again reviewed [...] patient is to apply ( Rx FROM WCC OR VNA ) Antibiotic to the wound and cover [...] Center due to pedal risk of limb/life, [facility] and [facility] SHORT-TERM GOALS of wound care include, prevent hospitalization, debridement to remove devitalized tissue, minimize risk for soft tissue or bone infection, initiate and promote the wound healing process, and prevent further complication such as loss of limb or life were discussed/reviewed. THE LONG-TERM GOALS of wound care include, complete wound closure if possible, facilitate patient comfort, prevent recurrence, and return the patient to their pre-ulcerative state of activity and lifestyle if possible.? * Follow Up:?4 Weeks * Images: * Sign off status: Completed true * Provider:Leeanna Chao DPM Date:?2024 Generated for Marcio vick/José Miguel/Evita on:?01/11/2025 11:43 AM EDT History and Physical Notes * HPI (History of Present Illness) Category Sub-Category Detail Notes Category Not es Skin problems Treatments: Wound Care Clini c and Home [facility] Local care consisting of daily distilled water wound cleanse, topical antibiotic as recommended, application of sterile dressing, offloading/pressure reduction via rest, shoe modification, insert modification, accommodative padding, assisted ambulation via cane/ crutch/ wheel chair at home - I use it more like a walker than anything else , and surgical debridement At Risk footcare Pt States Last PCP Visit: Date: 09/18/2024 Examination Category Sub-Category Detail Notes Category Not es Dermatologic ULCER: LOCATION, Medial , Plantar, 1 MTH, RIGHT, SIZE, 15mm X 15mm X 3mm, BASE, fibro-granular, RIM, hyperkeratotic, UNDERMINING, mild, TRACKING, Sub Q with Fat layer exposed, DRAINAGE, serosanguineous, moderate, NECROTIC TISSUE, loosely-adherent, yellow slough, MALODOR, absent, CALOR, absent, ERYTHEMA, absent Ophthalmology Referral DIABETES EYE EXAM Procedu re Performed:: Yes ?Date of Exam Performed: 07/10/2024 Retinal Screening Performed:: Yes Findings of Diabetic Eye Exam:: no retin opathy
--- OUTSIDE RECORDS SUMMARY | 2025-01-11 11:44 | XMS_ITS | Patient Health Record ---
[facility] Address [address] [place] [address] Care Team Providers Care Tank Cooper Name Role Phone Nate Olvera Primary Care Provider Unav ailable Adi Chao Unavailable [phone] Allergies Allergen (clinical drug ingredient) Drug/Non Drug Allergy documented on EMR Reaction Allergy Type Onset Date Status gabapentin Gabapentin Pt will not take 01/06/18 Drug Allergy Active Iodine Unknown Drug Allergy Active Shellfish (FN) Shellfish-derived Products Unknown Drug Allergy Active Results Component Value Reference Range Notes HEMOGLOBIN A1C (GLYCOHEMOGLO BIN) Reviewed date:10/10/2024 03:56:32 PM Interpretation: Performing Lab: Notes/Report: HEMOGLOBIN A1C % (HH) 7.0 HEMOGLOBIN A1C (GLYCOHEMOGLO BIN) Reviewed date:11/03/2024 12:09:59 PM Interpretation: Performing Lab: Notes/Report: HEMOGLOBIN A1C % (HH) 8.0 Reason For Referral No Information Medications Medication SIG (Take, Route, Frequency, Duration) Notes Start Date End Date Status Eliquis 5 MG Orally Active Extra Depth Orthopedic Shoes, (1) Pair [...] between the toes for 30 days Active Immunizations Vaccine Route Administration Date Status Comme nts COVID-19 Moderna Vaccine Unknown 08/09/2021 Administere d 1st 11/11/2020 2nd 12/13/2020 Influenza Unknown 07/31/2016 Refused Influenza Unknown 05/23/2018 Refused Influenza Unknown 11/19/2020 Refused Pneumococcal Unknown 09/28/2016 Refused Social History Tobacco Use: Social History Observation [...] ast year? No Points 0 Interpretation Negative Problems Problem Type SNOMED Code ICD Code Onset Dates Problem Status W/U Status Risk Notes Problem Type 2 diabetes mellitus with peripheral angiopathy (452476512) Type 2 diabetes mellitus with diabetic peripheral angiopathy without gangrene (E11.51) Active confirmed Q7(A), Q8(2B), Q9(1B,2C) Problem Ischemic 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 (L97.512) Active confirmed Response to treatment Improving Unresolved Vital Signs Blood pressure diastolic 80 mm Hg 12/05/2024 Height 5ft 5in in 12/05/2024 Blood pressure systolic 120 mm Hg 12/05/2024 Weight 190 lbs 12/05/2024 BMI 31.61 kg/m2 12/05/2024 Procedures Procedure Date Ordered Date Performed Result Body Sit e 45444-IDIXWXI NAIL, 6 OR MORE 02/01/2024 N/A 47668-DGVS SKIN LESIONS, OVER 4 02/01/2024 N/A 21847-NSYXVJA NAIL, 6 OR MORE 04/18/2024 N/A 15382- Debride <25 sq cm 04/18/2024 N/A 81564-MNIU SKIN LESIONS, OVER 4 04/18/2024 N/A 21952-KUXFRZP NAIL, 6 OR MORE 07/18/2024 N/A 42549-IDDB SKIN LESIONS, OVER 4 07/18/2024 N/A 99838-VFIEWKJ NAIL, 6 OR MORE 10/10/2024 N/A 25505-LLUUTTH SKIN/TISSUE 10/10/2024 N/A 41982-PEVY SKIN LESIONS, OVER 4 10/10/2024 N/A 30451-BPDVVGA SKIN/TISSUE 11/03/2024 N/A 04867-EPZXNGK SKIN/TISSUE 12/05/2024 N/A Encounters Encounter Location Date Provider Diagnosis [address] [address] 02/01/2024 Adi Chao Type 2 diabetes mellitus with diabetic peripheral angiopathy without gangrene E11.51 ; Tinea unguium B35.1 ; Pain in right toe(s) M79.674 and Pain in left toe(s) M79.[address] [address] 04/18/2024 Adi Chao Type 2 diabetes mellitus with diabetic peripheral angiopathy without gangrene E11.51 ; Tinea unguium B35.1 ; Pain in right toe(s) M79.674 ; Pain in left toe(s) M79.675 and Skin ulcer of toe of right foot, limited to breakdown of skin L97.[address] [address] 07/18/2024 Adi Chao Type 2 diabetes mellitus with diabetic peripheral angiopathy without gangrene E11.51 ; Tinea unguium B35.1 ; Pain in right toe(s) M79.674 ; Pain in left toe(s) M79.675 and Skin ulcer of toe of right foot, limited to breakdown of skin L97.[address] [address] 10/10/2024 Aditavia HallZhanna Type 2 diabetes mellitus with diabetic peripheral angiopathy without gangrene E11.51 ; Tinea unguium B35.1 ; Pain in right toe(s) M79.674 ; Pain in left toe(s) M79.675 ; Tinea pedis of both feet B35.3 and Ischemic 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 L97.[address] [address] 11/03/2024 Adi Zhanna Tinea pedis of both feet B35.3 and Ischemic 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 L97.[address] [address] 12/05/2024 Adi Zhanna Ischemic 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 L97.[address] [address] 09/04/2024 Aditavia Allanier Tinea pedis of both feet B35.[address] [address] 10/11/2024 Aditavia Allanier Assessments Encounter Date Diagnosis (ICD Code) Assessment Notes Treatment Notes Treatment Clinical Notes Section Notes 02/01/2024 Type 2 diabetes mellitus with diabetic peripheral angiopathy without gangrene (ICD-10 - E11.51) 02/01/2024 Tinea unguium (ICD-10 - B35.1) 04/18/2024 Type 2 diabetes mellitus with diabetic peripheral angiopathy without gangrene (ICD-10 - E11.51) 04/18/2024 Tinea unguium (ICD-10 - B35.1) 07/18/2024 Type 2 diabetes mellitus with diabetic peripheral angiopathy without gangrene (ICD-10 - E11.51) 07/18/2024 Tinea unguium (ICD-10 - B35.1) 09/04/2024 Tinea pedis of both feet (ICD-10 - B35.3) 10/10/2024 Type 2 diabetes mellitus with diabetic peripheral angiopathy without gangrene (ICD-10 - E11.51) Q7(A), Q8(2B), Q9(1B,2C) 10/10/2024 Tinea unguium (ICD-10 - B35.1) 11/03/2024 Tinea pedis of both feet (ICD-10 - B35.3) 11/03/2024 Ischemic 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 (ICD-10 - L97.512) Response to treatment Improving Unresolved Patient Educated with: WOUND CARE INSTRUCTIONS.p df (WOUND CARE INSTRUCTIONS.p df) 12/05/2024 Ischemic 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 (ICD-10 - L97.512) Response to treatment Improving Unresolved Patient Educated with: WOUND CARE INSTRUCTIONS.p df (WOUND CARE INSTRUCTIONS.p df) 07/18/2024 Pain in right toe(s) (ICD-10 - M79.674) 10/10/2024 Pain in right toe(s) (ICD-10 - M79.674) 04/18/2024 Pain in right toe(s) (ICD-10 - M79.674) 02/01/2024 Pain in right toe(s) (ICD-10 - M79.674) 02/01/2024 Pain in left toe(s) (ICD-10 - M79.675) 04/18/2024 Pain in left toe(s) (ICD-10 - M79.675) 07/18/2024 Pain in left toe(s) (ICD-10 - M79.675) 10/10/2024 Pain in left toe(s) (ICD-10 - M79.675) 10/10/2024 Tinea pedis of both feet (ICD-10 - B35.3) 07/18/2024 Skin ulcer of toe of right foot, limited to breakdown of skin (ICD-10 - L97.511) 04/18/2024 Skin ulcer of toe of right foot, limited to breakdown of skin (ICD-10 - L97.511) Nonapplicable Patient Educated with: WOUND CARE INSTRUCTIONS.p df (WOUND CARE INSTRUCTIONS.p df) 10/10/2024 Ischemic 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 (ICD-10 - L97.512) Response to treatment Nonapplicable Patient Educated with: WOUND CARE INSTRUCTIONS.p df (WOUND CARE INSTRUCTIONS.p df) 02/01/2024 Other 04/18/2024 Other 07/18/2024 Other Plan Of Treatment Pending Test Test Name Order Date X ray : Foot, left 2V 03/13/2015 X ray : Foot, right 2V 12/13/2014 X ray : Foot, right 2V 03/13/2015 X ray : Foot, right 3V 08/07/2015 X ray : Foot, right 3V 09/03/2017 X ray : Foot, right 3V 05/30/2018 X ray : Foot, right 3V 06/08/2018 X ray : Foot, right 3V 06/16/2018 X ray : Foot, right 3V 06/23/2018 X ray : Foot, right 3V 05/23/2018 X ray : Foot, right 3V 06/29/2018 X ray : Foot, right 3V 07/07/2018 X ray : Foot, right 3V 07/18/2018 61503-GTCDLFW NAIL, 6 OR MORE 11/17/2019 34153-KAKHKNO NAIL, 6 OR MORE 01/30/2020 02235-GDNAHWZ NAIL, 6 OR MORE 04/09/2020 41721-NZJCXAD NAIL, 6 OR MORE 06/14/2020 88716-HPFKRII NAIL, 6 OR MORE 04/07/2017 97606-YVBFLBA NAIL, 6 OR MORE 10/04/2017 77807-HJMTBHJ NAIL, 6 OR MORE 12/06/2017 41091-IJKLFVN NAIL, 6 OR MORE 02/23/2018 91214-IFQOJWG NAIL, 6 OR MORE 07/26/2017 36172-BYLSOML NAIL, 6 OR MORE 04/28/2018 22866-LZURNWT NAIL, 6 OR MORE 11/04/2015 34774-LJKPQSS NAIL, 6 OR MORE 02/05/2016 81747-OOFRINB NAIL, 6 OR MORE 04/20/2016 99295-KURDFLZ NAIL, 6 OR MORE 06/22/2016 36666-BOKIVTZ NAIL, 6 OR MORE 09/07/2016 37559-CSYFWUJ NAIL, 6 OR MORE 11/16/2016 85948-KDZQPSP NAIL, 6 OR MORE 09/03/2020 64523-RRBCBQN NAIL, 6 OR MORE 11/19/2020 77346-DAHUWAZ NAIL, 6 OR MORE 02/21/2021 11069-RXDCBKK NAIL, 6 OR MORE 05/23/2021 82243-ZKXMMSX NAIL, 6 OR MORE 07/18/2021 78942-YAPZPLM NAIL, 6 OR MORE 10/07/2021 20225-CYZOKNX NAIL, 6 OR MORE 12/19/2021 20046-ILGEMVT NAIL, 6 OR MORE 02/27/2022 35771-ZDPMFLI NAIL, 6 OR MORE 05/15/2022 17878-YSXKWAN NAIL, 6 OR MORE 07/31/2022 43915-PRRDFER NAIL, 6 OR MORE 10/16/2022 07972-OUIEZNB NAIL, 6 OR MORE 12/22/2022 16853-LPAFIHX NAIL, 6 OR MORE 02/26/2023 31358-HTYPKWV NAIL, 6 OR MORE 06/18/2023 08789-SXJOAND NAIL, 6 OR MORE 09/03/2023 87528-EFNGLFT NAIL, 6 OR MORE 11/23/2023 73163-RUXYATD NAIL, 6 OR MORE 02/01/2024 50500-NKPQDWP NAIL, 6 OR MORE 04/18/2024 40110-GAKKNGA NAIL, 6 OR MORE 07/18/2024 09982-UCPAEQN NAIL, 6 OR MORE 10/10/2024 85035-BGLGDNL NAIL, 1-5 03/13/2015 03686-FCSVKVT NAIL, 1-5 07/11/2014 17316-CJZOQXE NAIL, 1-5 12/13/2014 45939-TEEZUWH NAIL, 1-5 05/29/2015 62883-PWKPOZG NAIL, 1-5 08/07/2015 93333- Debride <25 sq cm 10/27/2017 65345- Debride <25 sq cm 09/03/2017 33912- Debride <25 sq cm 09/14/2017 76094- Debride <25 sq cm 09/22/2017 90726- Debride <25 sq cm 10/04/2017 10442- Debride <25 sq cm 06/23/2018 85953- Debride <25 sq cm 06/29/2018 65026- Debride <25 sq cm 04/18/2024 49027-UMNODZB SKIN/TISSUE 10/10/2024 10578-NZZSSDI SKIN/TISSUE 11/03/2024 94299-ZEDSEDX SKIN/TISSUE 12/05/2024 93975-KKITMGN SKIN/TISSUE 07/07/2018 54360 I&D ABSCESS- SIMPLE,SINGLE 017 92973-JVPJ SKIN LESIONS, OVER 4 01/21/20 17 03443-UBSP SKIN LESIONS, OVER 4 04/07/20 17 82990-SNPG SKIN LESIONS, OVER 4 11/17/19 17 32894-WAKQ SKIN LESIONS, OVER 4 09/07/19 17 28261-XNWL SKIN LESIONS, OVER 4 06/22/20 16 83973-AGEQ SKIN LESIONS, OVER 4 04/20/20 16 26854-CJMV SKIN LESIONS, OVER 4 02/05/20 16 33436-ISVS SKIN LESIONS, OVER 4 11/04/19 16 30325-SRXP SKIN LESIONS, OVER 4 08/07/20 15 65553-LILN SKIN LESIONS, OVER 4 05/29/20 15 87636-WKFL SKIN LESIONS, OVER 4 03/13/20 15 24942-JXHK SKIN LESIONS, OVER 4 06/14/20 70987-QPQW SKIN LESIONS, OVER 4 04/09/20 47233-WNCP SKIN LESIONS, OVER 4 11/17/19 48119-LDOC SKIN LESIONS, OVER 4 01/30/20 14587-WNEK SKIN LESIONS, OVER 4 10/04/19 18 55017-NMUM SKIN LESIONS, OVER 4 07/26/20 17 78254-GNKK SKIN LESIONS, OVER 4 12/07/19 18 31228-PMLI SKIN LESIONS, OVER 4 02/24/20 18 73945-OGLC SKIN LESIONS, OVER 4 04/28/20 18 42859-TZOB SKIN LESIONS, OVER 4 10/10/19 28990-FVBY SKIN LESIONS, OVER 4 07/18/20 24 01525-MYVJ SKIN LESIONS, OVER 4 04/18/20 24 79863-CDOC SKIN LESIONS, OVER 4 02/01/20 24 58148-BRXK SKIN LESIONS, OVER 4 11/23/19 24 20567-QYVL SKIN LESIONS, OVER 4 09/03/19 24 63801-ZDTT SKIN LESIONS, OVER 4 06/18/20 16510-LSPC SKIN LESIONS, OVER 4 02/27/20 23 36529-RJGE SKIN LESIONS, OVER 4 12/23/19 23 60701-SLSN SKIN LESIONS, OVER 4 10/16/19 23 74020-POFK SKIN LESIONS, OVER 4 07/31/20 15764-WLKP SKIN LESIONS, OVER 4 05/15/20 71655-BYSV SKIN LESIONS, OVER 4 02/28/20 04037-GIKJ SKIN LESIONS, OVER 4 12/20/19 79893-TBZU SKIN LESIONS, OVER 4 10/07/19 93018-GIXX SKIN LESIONS, OVER 4 07/18/20 04726-KWEA SKIN LESIONS, OVER 4 02/22/20 55729-NXIJ SKIN LESIONS, OVER 4 05/23/20 21 64836-CFCN SKIN LESIONS, OVER 4 11/20/19 21 11953-GZEB SKIN LESIONS, OVER 4 09/03/19 21 03988-NPDT SKIN LESIONS, 2 TO 4 12/14/19 15 21209-THOA SKIN LESIONS, 2 TO 4 07/11/20 14 93926-Ntem. Subungual Hematoma 2 30066-DSII NAIL(S) 07/11/2014 54896-MQGN NAIL(S) 12/13/2014 85280-EOWQ NAIL(S) 03/13/2015 89648-VFQJ NAIL(S) 05/29/2015 95858-AZKK NAIL(S) 08/07/2015 27633-FTQJKOUO OF HEMATOMA/FLUID 018 16670-UOASMOKW OF HEMATOMA/FLUID 018 39298- Removal of Foreign Body, Subcut 0 03/28/2015 21692- Removal of Foreign Body, Subcut 0 01/20/2017 67209- Removal of Foreign Body, Subcut 0 02/26/2023 93374, J0702- Neuroma/Injection 04/20/20 16 Next Appt Details Provider Name:Adi Chao , 01/16/2025 11:30:00 AM, [address] [facility], [place], [address], Insurance Providers Payer Name Payer Address Payer Phone Subscriber Number Group Number Insured Name Patient Relationship to Insured Coverage Start Date Coverage End Date Medicare National [employer] [address] [facility] [place] [id number] [phone] [id number] CousheriAnastasiya Self - patient is the insured 0 [employer] [address] [place] [address] [id number] GiorgiosheriAnastasiya Self - patient is the insured Medical (General) History Medical History History ICD Code Measles Chicken pox Mumps Transfusions type II diabetes Surgical History Surgery Date(Month/Year) knee surgery cholecystectomy rotator cuff tear repair Rubio Bunionectomy R, HT R2,3, ORIF R2n d MTPJ 05/19/2018 nose bleed cauterized nose 05/02/2022 Hospitalization History Reason Date(Month/Year)
--- OUTSIDE RECORDS SUMMARY | 2025-01-11 11:44 | XMS_ITS | Encounter Summary ---
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 callus right foot rt bunion toenail nail fungus * Consultation (Routine) - Authorized Specialty Diagnoses / Procedures Referred By Contact Referred To Contact Podiatry / Orthopaedic Surgery Diagnoses Callus Mary Carmen King MD [address] [place] [address] Phone: tel: fax: Anoop Ortiz DPM [address] [address] Phone: tel: fax: Referral ID Status Reason Start Date Expiration Date Visits Requested Visits Authorized [id number] Authorized Specialty Services Required 12/30/2024 12/30/2025 1 1 Encounter Details Date Type Department Care Team ([facility] st Contact Info) Description 01/09/2025 8:45 AM EDT Consult Orthopedic Surgery - [place] [address] [phone] Domingo Ramos DPM [address] [address] Poorly controlled type 2 diabetes mellitus with neuropathy (CMS/HCC V24, CMS/HCC V28) (Primary Dx); History of amputation of lesser toe of right foot (CMS/HCC V24); Callus; Dermatophytosis, nail; Ulcer of right heel, with fat layer exposed (CMS/HCC V24, CMS/HCC V28) Social History Tobacco Use Types Packs/Day Years Used Date Smoking Tobacco: Never Assessed Comments Unknown Sex and Gender Information Value Date Recorded Sex Assigned at Not on file Legal Sex Female 2:20 PM EST Gender Identity Not on file Sexual Orientation Not on file documented as of this encounter Last Filed Vital Signs Vital Sign Reading Time Taken Comments Blood Pressure - - Pulse - - Temperature - - Respiratory Rate - - Oxygen Saturation - - Inhaled Oxygen Concentration - - Weight 83.9 kg (185 lb) 01/09/2025 9:00 AM EDT Height 170.2 cm (5' 7 ) 01/09/2025 9:00 AM EDT Body Mass Index 28.98 01/09/2025 9:00 AM EDT documented in this encounter Progress Notes * Domingo Ramos DPM - 01/09/2025 8:45 AM EDT Referring MD: Mary Carmen King MD Last PCP visit: 12/22/2024 IDENTIFIER: Emilie is a 74 y.o. year old female who presents for consultation. CC: Right foot wound HPI: 74-year-old diabetic female with a recent A1c of 9.0 and a daily sugar of 230 mg/dL presents officewith chief complaint of right foot wound. Patient notes that she started having wound in September 2024 and has been going to wound care for weekly wound care and has a visiting nurse to change the bandage every other day. Patient notes that she is having no resolve within the foot. Patient has not been offloading or wearing a surgical shoe. Patient notes she has had previous surgery where she hadbunion deformity and right third digit amputation as a result. Patient denies fever nausea vomitingshortness of breath. Patient is here for evaluation treatment ROS: GENERAL: Pt denies nausea, fever, vomiting, chills, or shortness of breath. Pt in NAD. CARDIOLOGY: pt denies chest pain, palpitations LUNGS: pt denies shortness of breath MUSCULOSKELETAL: See HPI, otherwise no joint pain or swelling, back pain, or muscle pain. SKIN: see HPI, otherwise no lesions, rash or itching NEURO: No persistent headache, weakness or numbness The remainder of the review of systems is noncontributory PAST MEDICAL HISTORY: There is no problem list on file for this patient. SOCIAL HISTORY: Social History Tobacco Use Smoking status: Not on file Smokeless tobacco: Not on file Substance Use Topics Alcohol use: Not on file ACTIVE MEDICATIONS: No outpatient medications have been marked as taking for the 01/09/25 encounter (Consult) with Domingo Ramos DPM. ALLERGIES: Patient has no allergy information on record. PHYSICAL EXAM: Height 1.702 m (67 ), weight 83.9 kg (185 lb). PODIATRIC EXAMINATION: GENERAL: Patient appears well nourished, with NAD. VASCULAR: Dorsalis pedis pulses are 1/4 bilaterally and Posterior tibial pulses are 1/4 bilaterally. Capillary filling time within normal limits the digits. No pallor on elevation or rubor on dependency. Positive hair growth. Many varicosities. +1 pitting edema bilaterally. Denies rest pain or claudication pain. NEUROLOGICAL: Sharp/dull sensation diminished, protective sensation diminished on [place]. Peripheral neuropathy throughout the feet bilaterally. ORTHOPEDIC: Good muscle strength 5/5 of all flexors and extensors. Dorsi flexion of ankle ,10 degrees, plantar flexion WNL. No muscle atrophy. Arthritic changes of the midfoot bilaterally. Severe hallux abductovalgus. Previous right third digit amputation. DERMATOLOGICAL:.Ulceration of plantar aspect of the submetatarsal 1 position that is 8 mm in diameter with irregular hyperkeratotic rim extending into the subcutaneous fibrogranular base. Does not deep probe to bone and does not track. No purulence or malodor. Surrounding hyperkeratotic rim no periwound erythema . Thickened misshapened discolored x 9 with subungual debris BIOMECHANICS: STJ ROM wnl, MTJ ROM wnl, 1st MPJ ROM wnl. IMPRESSION: 1. Poorly controlled type 2 diabetes mellitus with neuropathy (CMS/HCC V24, CMS/HCC V28) 2. History of amputation of lesser toe of right foot (CMS/HCC V24) 3. Callus 4. Dermatophytosis, nail 5. Ulcer of right heel, with fat layer exposed (CMS/HCC V24, CMS/HCC V28) PLAN: Pt was seen and examined, history reviewed. Patient was educated that she would be unable to heal any wounds with her sugar staying over 180 mg/dL. Patient understands that she needs to control this better in order to have a chance that healing Patient's right foot wound required offloading. Custom pads were cut for patient and she was instructed to apply them every other day when visiting nurse changes the bandage. Patient may continue with current bandaging regimen through visiting nurse dressing order. Patient was fit with a surgical shoe and instructed to use at all times when weightbearing. Patient's wound required debridement as described below Open wound selective debridement of devitalized soft tissue, fibrin, epidermis, dermis, thru skin and subcutaneous tissue, first 20 sq cm or less, using sterile sharp dissection #15 scalpel blade of the right foot ulcer. Pt. deferred anesthesia. . Devitalized tissue was not sent to pathology. Nail debridement performed to nails 1-5 bilateral as nails were described to be causing pain and difficulty for walking while in shoegear at their previous length. They were debrided in thickness andlength, with no incident. Clinical evidence of mycosis is documented which required active treatment. Patient expressed immediate relief. Patient is to RTC in 9 weeks Domingo Ramos DPM documented in this encounter Plan of Treatment Upcoming Encounters Date Type Department Care Team (Late st Contact Info) Description 01/17/2025 8:30 AM EDT Office Visit Orthopedic Surgery - [place] [address] [phone] Domingo Ramos DPM [address] [address] documented as of this encounter Visit Diagnoses Diagnosis Poorly controlled type 2 diabetes mellitus with neuropathy ([facility] V24, [facility] V28)- Primary History of amputation of lesser toe of right foot ([facility] V24) Callus Corns and callosities Dermatophytosis, nail Dermatophytosis of nail Ulcer of right heel, with fat layer exposed ([facility] V24, [facility] V28) documented in this encounter Orders Outpatient Referral Count Last Ordered Date st Ordered Date AMB REFERRAL TO PODIATRY 1 01/09/2025 documented in this encounter Care Teams Ict Project Manager Relationship Specialty Start Date End Date Kiley Mazariegos NP [address] [place] [address] [place] [address] PCP - General Family Medicine 3/29/19 documented as of this encounter
--- OUTSIDE RECORDS SUMMARY | 2025-01-11 11:44 | XMS_ITS ---
Author Organization [facility] Address [address] [place] [address] Care Team Providers Care Assistant Director Of Residence Life Name Role Phone Nate Olvera Primary Care Provider Unav ailable Adi Chao Unavailable [phone] REASON FOR [place]ISIT [facility]ab Encounters Encounter Location Date Provider Diagnosis [address] [phone] 10/11/2024 Adi Chao Plan Of Treatment Next Appt Details Provider Name:Adi Chao , 01/16/2025 11:30:00 AM, [address] [place] [address], [phone], Progress Notes * Anastasiya CUADRA ADOB:[birth year] (74 yo F)Acc No.[id number]:10/11/2024 Patient:?Anastasiya CUADRA :1950???Age:74 Y???Sex:Female Address:[address] [place] [phone] * true * Date:? Generated for Addiei nava/José Miguel/eTransmitting on:?01/11/2025 11:43 AM EDT
== END 2025-01-11 12:01 | disposition home or self-care (01) ==
LOC: HO.HMCC 10:38
PROVIDERS: PCP Nurse Practitioner Family; Visit Provider Nurse Practitioner Family
DX: Z13.9 Encounter for screening, unspecified (principal); E11.65 Type 2 diabetes mellitus with hyperglycemia

== ENCOUNTER 2025-01-12 04:53 | Outpatient (REF) | payer MEDICARE, SELFPAY ==
[2025-01-12 10:01] LABS: Appearance Urine Clear; Color Urine Yellow; Glucose Urine UA 250 mg/dL (Negative); Leukocyte Esterase Urine Moderate (2+) (Negative); Nitrite Urine Negative (Negative); PH 5.5 (5.0-9.0); Specific Gravity - Urine 1.015 (1.005-1.025); UMIC TRIGGER UACC YES; Urine Blood Small (1+) (Negative); Urine Ketones Trace mg/dL (Negative); Urine Protein 30 (1+) mg/dL (Neg-Trace)
[2025-01-12 10:13] LABS: Bacteria Urine Trace (None Seen); Hyaline Casts Urine 0-2 /LPF (0-2); Squamous Epithelial Cell Urine 0-2 /HPF (0-2); UACC Culture Trigger YES; WBC Urine >50 /HPF (0-5)
[2025-01-12 11:14] LABS: Creatinine Urine 55.87 mg/dL; Microalbum/Creatinine Ratio Ur 390.1 ug/mg cr (<30)
== END 2025-01-12 04:54 | disposition home or self-care (01) ==
LOC: HO.HMGCLNP 04:53
PROVIDERS: PCP Nurse Practitioner Family; Visit Provider Nurse Practitioner Family
DX: E11.65 Type 2 diabetes mellitus with hyperglycemia (principal); R82.90 Unspecified abnormal findings in urine
CPT/HCPCS: 81001; 81003; 82043; 82570; 87086

== ENCOUNTER 2025-03-11 11:40 | Emergency (ER) | payer MEDICARE, SELFPAY ==
--- NOTE | ~2025-03-11 | XR_ITS ---
CLINICAL HISTORY: trauma, pain Three views of each hand. Comparison: 07/01/2022 10:00 AM EDT: [facility] CDT) Findings: Bones intact. No dislocations. Joint space narrowing and periarticular osteophyte formation at the radiocarpal, scaphotrapezial, and 1st carpometacarpal joints is present, indicating osteoarthritis. Periarticular lucencies adjacent to the proximal and distal interphalangeal joints, predominantly involving the left hand. No radiopaque foreign body. IMPRESSION: 1. No acute findings 2. Possible erosive arthropathy. Clinical correlation recommended. This document has been electronically signed by: Chavez Burroughs MD on 03/11/2025 13:22:55
--- NOTE | ~2025-03-11 | CT_ITS ---
CLINICAL HISTORY: Trauma, on eliquis CT head without contrast Comparison: None provided Findings: No intra-axial mass, midline shift, hydrocephalus, or acute hemorrhage. Age appropriate cerebral volume loss. Patchy low-density within the periventricular and subcortical white matter. The visualized paranasal sinuses and mastoid air cells are normal. The orbits are within normal limits. There is no acute fracture. IMPRESSION: 1. No acute intracranial findings. This document has been electronically signed by: Chavez Burroughs MD on 03/11/2025 14:09:40
--- NOTE | ~2025-03-11 | XR_ITS ---
CLINICAL HISTORY: pain 2 view left forearm Comparison: None provided Findings: No fractures or dislocations. No joint effusion. No significant arthritic change. No radiopaque foreign body. IMPRESSION: 1. Normal left forearm This document has been electronically signed by: Chavez Burroughs MD on 03/11/2025 13:16:01
--- NOTE | ~2025-03-11 | XR_ITS ---
CLINICAL HISTORY: trauma, pain 4 view left knee Comparison: None provided Findings: Bones intact. No dislocations. Tricompartmental periarticular osteophyte formation, indicating osteoarthritis. No joint effusion. No radiopaque foreign body. Arterial vascular calcifications are present. IMPRESSION: 1. No acute findings. This document has been electronically signed by: Chavez Burroughs MD on 03/11/2025 13:18:35
--- NOTE | ~2025-03-11 | CT_ITS ---
CLINICAL HISTORY: trauma, left facial pain CT maxillofacial without contrast Comparison: None provided Findings: No acute fractures. No dislocations. Temporomandibular joints are intact. Paranasal sinuses and mastoid air cells clear. Unremarkable orbital contents. Visualized intracranial contents are within normal limits. No foreign bodies. IMPRESSION: Unremarkable maxillofacial CT. This document has been electronically signed by: Chavez Burroughs MD on 03/11/2025 14:07:54
[2025-03-11 12:18] VITALS: BP 169/72; PULSE 80; RESP 20; TEMP 36.6; O2SAT 96; BMI 31.8
--- NOTE | 2025-03-11 12:20 | ED.GENADULT ---
HPI - General Adult General Chief complaint: Fall Stated complaint: fall Time Seen by Provider: 03/11/25 14:25 Source: patient and RN notes reviewed Limitations: no limitations History of Present Illness HPI narrative: 74-year-old female presents for evaluation after she accidentally stepped on the back of her sandal, tripped and fell forward. Patient states she struck the ground with her left side of the face, her hands and her knees. The patient was able to ambulate after the incident. She denies any LOC. No prodromal symptoms. She denies any other recent falls. She is otherwise feeling well. She did not take any medicine for this. Patient is currently on Eliquis. Related Data Previous Rx's ?Medication ?Instructions ?Recorded apixaban 5 mg tablet (Eliquis) 5 mg PO BID #180 tabs 06/22/24 metoprolol tartrate 50 mg tablet 100 mg (2 x 50 mg) PO BID #360 tabs 02/26/25 Allergies Allergy/AdvReac Type Severity Reaction Status Date / Time Iodinated Contrast Media (IV Allergy Severe ANAPHYLAXIS Verified 03/11/25 12:21 Dye, Iodine Containing) shellfish derived (SHELLFISH Allergy Severe ANAPHYLAXIS Verified 03/11/25 12:21 DERIVED) diltiazem (Cardizem) Allergy Unknown sob and Verified 03/11/25 12:21 leg swelling gabapentin (GABAPENTIN) Allergy Unknown UNKNOWN-PATIENT Verified 03/11/25 12:21 REFUSES gadobutrol (Gadavist) Allergy Unknown Unknown Verified 03/11/25 12:21 iopromide (Ultravist) Allergy Unknown Unknown Verified 03/11/25 12:21 losartan AdvReac Mild Abdominal Verified 03/11/25 12:21 Pain Review of Systems Review of Systems: Yes all other systems are reviewed and are negative Constitutional: Constitutional: Denies chills, Denies fever(s) and Denies headache(s) Eyes: Eyes: Denies change in vision and Denies other (No redness.) ENT: Denies headache(s), Denies nasal congestion, Denies nasal discharge, Denies neck pain and Denies sore throat Cardiovascular: Cardiovascular: Denies chest pain, Denies dyspnea, Denies dyspnea on exertion and Denies orthopnea Respiratory: Respiratory: Denies cough, Denies dyspnea and Denies dyspnea on exertion Gastrointestinal: Gastrointestinal: Denies abdominal pain, Denies melena, Denies hematochezia, Denies diarrhea, Denies nausea and Denies vomiting Genitourinary: Genitourinary: Denies dysuria and Denies urinary urgency Musculoskeletal: Musculoskeletal: Denies back pain, Denies muscle weakness, Denies neck pain and Denies numbness Neurologic: Denies headache(s), Denies focal weakness and Denies numbness Psychiatric: Psychiatric: Denies depression [facility] Past Medical History Medical History Diabetic retinopathy Hammer toe of right foot Diabetic macular edema Immunization consent not given Colonoscopy refused Mammogram declined Tick bite Anxiety Sciatica of right side Chronic atrial fibrillation Diabetes mellitus Hypercholesteremia HTN (hypertension) Surgical History History of complete ray amputation of third toe of right foot H/O lumbosacral spine surgery History of cholecystectomy Family History Family History Father Prostate cancer Mother Kidney disease Social History Social History Housing: House Alcohol intake: never Patient Tobacco Use Status: Never used Tobacco e-Cigarette/Vaping Use: Never Used Advance Directives: No Advance Directives Information Provided: Yes Do you have a plan to hurt others: No Plan service: No Current occupational status: retired Current occupation: Rt handed Cognitive needs: No Hearing needs: No Vision needs: No Physical Exam ED Vital Signs: Vital Signs - 24 hr 03/11/25 12:18 03/11/25 15:18 Temperature 97.8 F 97.8 F Pulse Rate 80 80 Respiratory Rate 20 20 Blood Pressure 169/72 H 169/72 H Pulse Oximetry 96 96 Oxygen Delivery Method Room Air Room Air BMI result Body Mass Index 31.8 Const General: cooperative and no acute distress Orientation/consciousness: patient oriented x3 Eyes Other: No nystagmus Neck Other: No spinous, paraspinous or paravertebral tenderness. Resp Other: Lung sounds clear throughout Cardio Rate: regular rate Rhythm: regular rhythm GI Other: Abdomen is soft and nontender Neuro General: patient oriented x3 and CN's II-XI intact bilaterally Extrem Other: Shelter Monitor is 5/5 bilaterally. Full range of motion of all joints. There is mild diffuse tenderness to the left wrist. Capillary refills less than 2 seconds. No lumbar tenderness bilaterally. Mild tenderness to the right 1st digit. No ecchymosis or edema. Superficial abrasions to the left knee. No patellar ballottement. Course Course Course Narrative: Medical screening exam performed. Please refer to detailed history, exam, evaluation, and management by primary provider. 74-year-old female accidentally stepped on the back of her sandal, causing her to trip and fall forward. She landed forward, striking her head and face, hands and left knee. Pain to the left side of her head, face, left wrist and forearm as well as left knee. Currently on Eliquis. Reevaluation(s) Reevaluation #1: Reviewed imaging findings, no acute process. I have recommended a left wrist brace, cane and Tanner wrap however the patient has refused all of these. Patient was ambulatory at time of discharge. She expresses understanding of all discharge instructions and has no further questions at this time. Medical Decision Making Medical Decision Making MDM Narrative: 74-year-old female with trip and fall, check imaging especially since the patient is on Eliquis. Patient declining blood work. No focal deficits, neurologically intact. Differential Diagnosis Differential Diagnoses: The differential diagnosis associated with the presentation includes Intracranial bleed Fracture Contusion Sprain Admission/Observation Consideration of admission/observation: Escalation of care including admission/observation considered Radiology Impression Discussion of test interpretation with radiology: I have reviewed the radiologist's reading. Radiologist Impression: Reviewed all x-rays, no acute process, all CTs, no acute process Prescription Management I considered prescription management with: Pain Medication Discharge Plan Discharge Clinical Impression: Contusion of left knee, initial encounter Fall Qualifiers: Encounter type: initial encounter Qualified Code(s): W19.XXXA - Unspecified fall, initial encounter Left wrist sprain Qualifiers: Encounter type: initial encounter Wrist sprain location: unspecified location Qualified Code(s): S63.502A - Unspecified sprain of left wrist, initial encounter Contusion of head Qualifiers: Encounter type: initial encounter Laterality: unspecified laterality Patient Disposition: Home, Self-Care Instructions: Fall Prevention for Older Adults (ED), Wrist Sprain (ED), Facial Contusion (ED) Additional Instructions: Rest. Avoid strenuous activity. Ice. Tylenol available [id number] for pain. Follow up with your orthopedic, Dr. Ortiz. Call to schedule follow up appointment Follow-up with your primary care provider. Call this week to schedule a follow-up appointment. Return to the emergency department if you have any worsening of symptoms, or any concerns. Get well soon! Prescriptions: No Action Eliquis 5 mg tablet 5 mg PO BID Qty: 180 3RF metoprolol tartrate 50 mg tablet 100 mg PO BID Qty: 360 3RF Interventions: ED Discharge Assessment Last Done: 03/11/25 15:18 Discharge Date/Time: 03/11/25 14:40 Print Language: Nepali
[2025-03-11 15:18] VITALS: BP 169/72; PULSE 80; RESP 20; TEMP 36.6; O2SAT 96
== END 2025-03-11 14:40 | disposition home or self-care (01) ==
PROVIDERS: Emergency Provider Emergency Medicine; PCP Nurse Practitioner Family
DX: S63.502A Unspecified sprain of left wrist, initial encounter (principal); S89.92XA Unspecified injury of left lower leg, initial encounter; M79.642 Pain in left hand; M79.641 Pain in right hand; R51.9 Headache, unspecified; M25.562 Pain in left knee; M79.602 Pain in left arm; X50.1XXA Overexertion from prolonged static or awkward postures, initial encounter; Y93.9 Activity, unspecified; Y92.9 Unspecified place or not applicable; Y99.8 Other external cause status
CPT/HCPCS: 70450; 70486; 73090; 73130; 73564; 99282; 99284

== ENCOUNTER → 2025-03-11 12:20 | Outpatient (BNV) | payer MEDICARE, SELFPAY | PROVIDERS: PCP Nurse Practitioner Family; Visit Provider Radiology Diagnostic Radiology | DX: G50.1 Atypical facial pain (principal); R90.82 White matter disease, unspecified; M17.12 Unilateral primary osteoarthritis, left knee; M79.643 Pain in unspecified hand; M79.632 Pain in left forearm | CPT/HCPCS: 70450; 70486; 73090; 73130; 73564 ==

== ENCOUNTER 2025-03-27 11:59 | Outpatient (AMB) | payer MEDICARE, SELFPAY ==
--- OUTSIDE RECORDS SUMMARY | 2025-03-27 12:57 | XMS_ITS | Patient Health Record ---
[facility] Address [address] [place] [address] Care Team Providers Care Shoder Filler Name Role Phone Nate Olvera Primary Care Provider Unav ailable Adi Chao Unavailable [phone] Allergies Allergen (clinical drug ingredient) Drug/Non Drug [...] Duration) Notes Start Date End Date Status Metoprolol Tartrate 25 MG 1 tablet with food Orally Twice a day Active Ciclopirox Olamine 0.77 % 1 application Externally Twice a day to skin of feet including between the toes; Duration: 30 days Active Eliquis 5 MG Orally Active Ammonium Lactate 12 % APPLY TO AFFECTED AREA EXTERNALLY TO FEET TWICE A DAY; Duration: 30 Not-Taking Extra Depth Orthopedic Shoes, (1) Pair With (3) Pair Custom Heat Molded Multidensity Innersoles Dx: NIDDM/PVD(E11.51), Hammertoe Foot Deformity(M20.41,M20.42) , Preulcerative Skin Lesion(s)(L85.1) Wear Daily; Duration: 365 days 01/16/2025 Active Immunizations Vaccine Route Administration Date Status Comme nts Influenza Unknown 07/31/2016 Refused Influenza Unknown 05/23/2018 Refused Influenza Unknown 11/19/2020 Refused Pneumococcal Unknown 09/28/2016 Refused COVID-19 Moderna Vaccine Unknown 08/09/2021 Administere d 1st 11/11/2020 2nd 12/13/2020 Social History Tobacco Use: Social History Observation [...] Problem Status W/U Status Risk Notes Problem Acquired hammer toe of right foot (0915599720865 105) Other hammer toe(s) (acquired), right foot (M20.41) Active confirmed Problem Type 2 diabetes mellitus with peripheral angiopathy (650535871) Type 2 diabetes mellitus with diabetic peripheral angiopathy without gangrene (E11.51) Active confirmed Q7(A), Q8(2B), Q9(1B,2C) Problem Acquired hammer toe of left foot (4008667541485 103) Other hammer toe(s) (acquired), left foot (M20.42) Active confirmed Vital Signs Blood pressure diastolic 80 mm Hg 01/16/2025 Height 5ft5in in 01/16/2025 Blood pressure systolic 124 mm Hg 01/16/2025 Weight 190 lbs 01/16/2025 BMI 31.61 kg/m2 01/16/2025 Procedures Procedure Date Ordered Date Performed Result Body Sit e 65949-WDXVQVI NAIL, 6 OR MORE 04/18/2024 N/A 30906- Debride <25 sq cm 04/18/2024 N/A 55994-TQLX SKIN LESIONS, OVER 4 04/18/2024 N/A 85892-MNHHPBX NAIL, 6 OR MORE 07/18/2024 N/A 14439-NJRE SKIN LESIONS, OVER 4 07/18/2024 N/A 15348-LODYMBI NAIL, 6 OR MORE 10/10/2024 N/A 47610-IIIBMFL SKIN/TISSUE 10/10/2024 N/A 55955-QJLQ SKIN LESIONS, OVER 4 10/10/2024 N/A 60671-SOZINHC SKIN/TISSUE 11/03/2024 N/A 19987-NXHWQXF SKIN/TISSUE 12/05/2024 N/A 46552-RTPVEVA NAIL, 6 OR MORE 01/16/2025 N/A 97292-IPIM SKIN LESIONS, OVER 4 01/16/2025 N/A Encounters Encounter Location Date Provider Diagnosis [address] [address] 04/18/2024 Adi Zhanna Type 2 diabetes mellitus with diabetic peripheral angiopathy without gangrene E11.51 ; Tinea unguium B35.1 ; Pain in right toe(s) M79.674 ; Pain in left toe(s) M79.675 and Skin ulcer of toe of right foot, limited to breakdown of skin L97.[address] [address] 07/18/2024 Adi Zhanna Type 2 diabetes mellitus with diabetic peripheral angiopathy without gangrene E11.51 ; Tinea unguium B35.1 ; Pain in right toe(s) M79.674 ; Pain in left toe(s) M79.675 and Skin ulcer of toe of right foot, limited to breakdown of skin L97.[address] [address] 10/10/2024 Adi Chao Type 2 diabetes mellitus with diabetic peripheral angiopathy without gangrene E11.51 ; Tinea unguium B35.1 ; Pain in right toe(s) M79.674 ; Pain in left toe(s) M79.675 ; Tinea pedis of both feet B35.3 and Ischemic 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 L97.[address] [address] 11/03/2024 Adi Zhanna Tinea pedis of both feet B35.3 and Ischemic 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 L97.[address] [address] 12/05/2024 Adi Chao Ischemic 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 L97.[address] [address] 01/16/2025 Adi Chao Type 2 diabetes mellitus with diabetic peripheral angiopathy without gangrene E11.51 ; Tinea unguium B35.1 ; Pain in right toe(s) M79.674 ; Pain in left toe(s) M79.675 ; Ischemic 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 L97.512 ; Other hammer toe(s) (acquired), right foot M20.41 and Other hammer toe(s) (acquired), left foot M20.[address] [address] 09/04/2024 Adi Chao Tinea pedis of both feet B35.[address] [address] 10/11/2024 Adi Chao [address] [address] 02/19/2025 Adi Chao Assessments Encounter Date Diagnosis (ICD Code) Assessment Notes Treatment Notes Treatment Clinical Notes Section Notes 04/18/2024 Type 2 diabetes mellitus with diabetic [...] CARE INSTRUCTIONS.p df (WOUND CARE INSTRUCTIONS.p df) 01/16/2025 Type 2 diabetes mellitus with diabetic peripheral angiopathy without gangrene (ICD-10 - E11.51) Q7(A), Q8(2B), Q9(1B,2C) 01/16/2025 Tinea unguium (ICD-10 - B35.1) 07/18/2024 Pain in right toe(s) (ICD-10 - M79.674) 10/10/2024 Pain in right toe(s) (ICD-10 - M79.674) 04/18/2024 Pain in right toe(s) (ICD-10 - M79.674) 01/16/2025 Pain in right toe(s) (ICD-10 - M79.674) 04/18/2024 Pain in left toe(s) (ICD-10 - M79.675) 07/18/2024 Pain in left toe(s) (ICD-10 - M79.675) 10/10/2024 Pain in left toe(s) (ICD-10 - M79.675) 01/16/2025 Pain in left toe(s) (ICD-10 - M79.675) 10/10/2024 Tinea pedis of both feet (ICD-10 - B35.3) 07/18/2024 Skin ulcer of toe of right foot, limited to breakdown of skin (ICD-10 - L97.511) 04/18/2024 Skin ulcer of toe of right foot, limited to breakdown of skin (ICD-10 - L97.511) Nonapplicable Patient Educated with: WOUND CARE INSTRUCTIONS.p df (WOUND CARE INSTRUCTIONS.p df) 01/16/2025 Ischemic 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 (ICD-10 - L97.512) 10/10/2024 Ischemic 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 (ICD-10 - L97.512) Response to treatment Nonapplicable Patient Educated with: WOUND CARE INSTRUCTIONS.p df (WOUND CARE INSTRUCTIONS.p df) 01/16/2025 Other hammer toe(s) (acquired), right foot (ICD-10 - M20.41) Patient Educated with: DIABETIC FOOT CARE INSTRUCTIONS.p df (DIABETIC FOOT CARE INSTRUCTIONS.p df) 01/16/2025 Other hammer toe(s) (acquired), left foot (ICD-10 - M20.42) 04/18/2024 Other 07/18/2024 Other Plan Of Treatment [...] X ray : Foot, right 3V 07/18/2018 72675-SQOFSMF NAIL, 6 OR MORE 11/17/2019 04409-VQTZGLA NAIL, 6 OR MORE 01/30/2020 17972-FTWDGKX NAIL, 6 OR MORE 04/09/2020 23614-LLBLXYJ NAIL, 6 OR MORE 06/14/2020 74173-KESFTAM NAIL, 6 OR MORE 04/07/2017 12384-FLBCVKL NAIL, 6 OR MORE 10/04/2017 80032-TJXXJIG NAIL, 6 OR MORE 12/06/2017 36114-UMOGMHN NAIL, 6 OR MORE 02/23/2018 11666-XMBPXZF NAIL, 6 OR MORE 07/26/2017 49453-YNACCUG NAIL, 6 OR MORE 04/28/2018 36982-VYTSXEM NAIL, 6 OR MORE 11/04/2015 59648-ALGEVQK NAIL, 6 OR MORE 02/05/2016 20198-ONQJHCX NAIL, 6 OR MORE 04/20/2016 38504-MOFSLKC NAIL, 6 OR MORE 06/22/2016 70758-HYQDULA NAIL, 6 OR MORE 09/07/2016 31004-MZGHMTX NAIL, 6 OR MORE 11/16/2016 18885-PKIKAQQ NAIL, 6 OR MORE 09/03/2020 83046-SRSPGHJ NAIL, 6 OR MORE 11/19/2020 05971-YEUSIJK NAIL, 6 OR MORE 02/21/2021 29485-EKCZHYP NAIL, 6 OR MORE 05/23/2021 42433-CYXJNEI NAIL, 6 OR MORE 07/18/2021 51046-GIVLZVG NAIL, 6 OR MORE 10/07/2021 15833-IWSXVIY NAIL, 6 OR MORE 12/19/2021 49263-OABSMBU NAIL, 6 OR MORE 02/27/2022 75173-IPAMUKO NAIL, 6 OR MORE 05/15/2022 27126-ULMFGYY NAIL, 6 OR MORE 07/31/2022 37184-HWJGQUX NAIL, 6 OR MORE 10/16/2022 05654-EOLQIML NAIL, 6 OR MORE 12/22/2022 78097-LLMBILY NAIL, 6 OR MORE 02/26/2023 92318-ASPEMZF NAIL, 6 OR MORE 06/18/2023 83194-GZMQIKD NAIL, 6 OR MORE 09/03/2023 27268-BYEIQAI NAIL, 6 OR MORE 11/23/2023 90807-UKYUGSQ NAIL, 6 OR MORE 02/01/2024 93579-MVRUHJL NAIL, 6 OR MORE 04/18/2024 40479-KNPLIHZ NAIL, 6 OR MORE 07/18/2024 03578-PIKSGQW NAIL, 6 OR MORE 10/10/2024 43011-HUIQOHB NAIL, 6 OR MORE 01/16/2025 49926-EGLZDBI NAIL, 1-5 03/13/2015 16505-ICJFNVW NAIL, 1-5 07/11/2014 67030-WYUHCXT NAIL, 1-5 12/13/2014 53730-RJNWPBG NAIL, 1-5 05/29/2015 57374-ZSVTXNM NAIL, 1-5 08/07/2015 54952- Debride <25 sq cm 10/27/2017 52459- Debride <25 sq cm 09/03/2017 47624- Debride <25 sq cm 09/14/2017 91937- Debride <25 sq cm 09/22/2017 33237- Debride <25 sq cm 10/04/2017 17682- Debride <25 sq cm 06/23/2018 14710- Debride <25 sq cm 06/29/2018 84373- Debride <25 sq cm 04/18/2024 37988-MKOCGHO SKIN/TISSUE 10/10/2024 04092-HUJMYWO SKIN/TISSUE 11/03/2024 69445-MABBFVG SKIN/TISSUE 12/05/2024 60756-YPFUTQI SKIN/TISSUE 07/07/2018 29884 I&D ABSCESS- SIMPLE,SINGLE 017 06876-GSNK SKIN LESIONS, OVER 4 01/21/20 17 69363-YHHO SKIN LESIONS, OVER 4 04/07/20 17 23110-VTTG SKIN LESIONS, OVER 4 11/17/19 17 36325-KPVY SKIN LESIONS, OVER 4 09/07/19 17 79200-XRRQ SKIN LESIONS, OVER 4 06/22/20 16 16038-CQIC SKIN LESIONS, OVER 4 04/20/20 16 57012-DRLL SKIN LESIONS, OVER 4 02/05/20 16 15761-PSCD SKIN LESIONS, OVER 4 11/04/19 16 20613-MIAJ SKIN LESIONS, OVER 4 08/07/20 15 70013-TBJD SKIN LESIONS, OVER 4 05/29/20 15 09372-ALAK SKIN LESIONS, OVER 4 03/13/20 15 10910-GAUQ SKIN LESIONS, OVER 4 06/14/20 20 55469-SLIX SKIN LESIONS, OVER 4 04/09/20 20 96847-TWWN SKIN LESIONS, OVER 4 11/17/19 20 54635-YFQJ SKIN LESIONS, OVER 4 01/30/20 20 75951-CKIH SKIN LESIONS, OVER 4 10/04/19 18 68014-KASM SKIN LESIONS, OVER 4 07/26/20 17 13463-KKBJ SKIN LESIONS, OVER 4 12/07/19 18 33902-DWQZ SKIN LESIONS, OVER 4 02/24/20 18 52065-GPQL SKIN LESIONS, OVER 4 04/28/20 18 47966-MSID SKIN LESIONS, OVER 4 10/10/19 25 63450-QTRL SKIN LESIONS, OVER 4 07/18/20 52766-RUYM SKIN LESIONS, OVER 4 04/18/20 34626-CLXI SKIN LESIONS, OVER 4 01/17/20 01484-LZNT SKIN LESIONS, OVER 4 02/01/20 67047-EJVZ SKIN LESIONS, OVER 4 11/23/19 24 49266-OFUO SKIN LESIONS, OVER 4 09/03/19 87936-JUNZ SKIN LESIONS, OVER 4 06/18/20 97815-TILG SKIN LESIONS, OVER 4 02/27/20 78033-MAMK SKIN LESIONS, OVER 4 12/23/19 87522-DEVW SKIN LESIONS, OVER 4 10/16/19 83605-KEEZ SKIN LESIONS, OVER 4 07/31/20 65188-YQOC SKIN LESIONS, OVER 4 05/15/20 70315-QPZM SKIN LESIONS, OVER 4 02/28/20 09484-VCIF SKIN LESIONS, OVER 4 12/20/19 21593-MAVI SKIN LESIONS, OVER 4 10/07/19 02041-WTTF SKIN LESIONS, OVER 4 07/18/20 57713-SANI SKIN LESIONS, OVER 4 02/22/20 29515-LZVG SKIN LESIONS, OVER 4 05/23/20 64576-VWEK SKIN LESIONS, OVER 4 11/20/19 59917-AHHL SKIN LESIONS, OVER 4 09/03/19 84579-BCTH SKIN LESIONS, 2 TO 4 12/14/19 15 39635-LSBA SKIN LESIONS, 2 TO 4 07/11/20 14 79874-Gzhx. Subungual Hematoma 2 37556-WTFQ NAIL(S) 07/11/2014 03749-KXXP NAIL(S) 12/13/2014 21060-GATN NAIL(S) 03/13/2015 54869-GWGN NAIL(S) 05/29/2015 74658-BRMY NAIL(S) 08/07/2015 45281-VBWUCBCF OF HEMATOMA/FLUID 018 45789-IWZERXZP OF HEMATOMA/FLUID 018 20420- Removal of Foreign Body, Subcut 0 03/28/2015 72535- Removal of Foreign Body, Subcut 0 01/20/2017 67153- Removal of Foreign Body, Subcut 0 02/26/2023 80221, J0702- Neuroma/Injection 04/20/20 16 Next Appt Details Provider Name:Adi Chao , 2025 08:45:00 AM, [address] [facility], [place], [address], Insurance Providers Payer Name Payer Address Payer Phone Subscriber Number Group Number Insured Name Patient Relationship to Insured Coverage Start Date Coverage End Date Medicare [facility] Govt [facility] [address] [place] [address] [id number] CouAnastasiya wade Self - patient is the insured 0 [employer] [address] [place] [address] [phone] [id number] Anastasiya Phan Self - patient is the insured Medical (General) History Medical History History ICD Code Measles Chicken pox Mumps Transfusions type II diabetes Surgical History Surgery Date(Month/Year) knee surgery cholecystectomy rotator cuff tear repair Rubio Bunionectomy R, HT R2,3, ORIF R2n d MTPJ 05/19/2018 nose bleed cauterized nose 05/02/2022 Hospitalization History Reason Date(Month/Year)
--- OUTSIDE RECORDS SUMMARY | 2025-03-27 12:57 | XMS_ITS | Clinical Summary ---
Author Organization [facility] Address [address] [place] [address] Phone Care Team Providers Care Ship'S Pilot Name Role Phone Kiley Mazariegos LORENA Primary Care Provider [phone] Allergies Active Allergy Reactions Criticality Noted Date Comments Gabapentin Nausea Only 01/17/2025 Iodine Rash 01/17/2025 Shellfish Containing Products Anaphylaxis High 01/17 Medications No known medications Encounters Date Type Department Care Team Description 02/22/2025 10:30 AM EDT Office Visit Orthopedic [facility] [address] [address] Domingo Ramos DPM Poorly controlled type 2 diabetes mellitus with neuropathy (CMS/HCC V24, CMS/HCC V28) (Primary Dx); History of amputation of lesser toe of right foot (CMS/[facility] V24); Ulcer of right heel, with fat layer exposed (CMS/HCC V24, CMS/HCC V28); Exostosis of right foot 02/08/2025 11:15 AM EDT Office Visit Orthopedic [facility] [address] [address] Domingo Ramos DPM Poorly controlled type 2 diabetes mellitus with neuropathy (CMS/HCC V24, CMS/HCC V28) (Primary Dx); History of amputation of lesser toe of right foot (CMS/[facility] V24); Ulcer of right heel, with fat layer exposed (CMS/HCC V24, CMS/HCC V28); Exostosis of right foot 02/01/2025 8:00 AM EDT Office Visit Orthopedic [facility] [address] [phone] Domingo Ramos DPM Poorly controlled type 2 diabetes mellitus with neuropathy (CMS/HCC V24, CMS/HCC V28) (Primary Dx); History of amputation of lesser toe of right foot (CMS/HCC V24); Ulcer of right heel, with fat layer exposed (CMS/HCC V24, CMS/HCC V28) 01/25/2025 8:15 AM EDT Office Visit Orthopedic [place] [address] [address] Domingo Ramos DPM Poorly controlled type 2 diabetes mellitus with neuropathy (CMS/HCC V24, CMS/HCC V28) (Primary Dx); History of amputation of lesser toe of right foot (CMS/[facility] V24); Callus; Ulcer of right heel, with fat layer exposed (CMS/HCC V24, CMS/HCC V28) 01/17/2025 8:30 AM EDT Office Visit Orthopedic [facility] [address] [address] Domingo Ramos DPM Poorly controlled type 2 diabetes mellitus with neuropathy (CMS/HCC V24, CMS/HCC V28) (Primary Dx); History of amputation of lesser toe of right foot ([facility] V24); Ulcer of right heel, with fat layer exposed (CMS/HCC V24, CMS/HCC V28) 01/09/2025 8:45 AM EDT Consult Orthopedic Surgery [facility] [address] [address] Domingo Ramos DPM Poorly controlled type 2 diabetes mellitus with neuropathy (CMS/HCC V24, CMS/HCC V28) (Primary Dx); History of amputation of lesser toe of right foot ([facility] V24); Callus; Dermatophytosis, nail; Ulcer of right heel, with fat layer exposed (CMS/HCC V24, CMS/HCC V28) from Last 3 Months Social History [...] - - Weight 83.9 kg (185 lb) 02/22/2025 8:13 AM EDT Height 170.2 cm (5' 7.01 ) 02/22/2025 8:13 AM ED T Body Mass Index 28.97 02/22/2025 8:13 AM EDT Plan of Treatment Upcoming Encounters Date Type Department Care Team (Late st Contact Info) Description 05/07/2025 2:00 PM EDT Office Visit Orthopedic Surgery - [place] [address] [address] Anoop Ortiz, DPM [address] [address] Health Maintenance Due Date Last Done Comments [...] 60-74 years 1-dose series) 2012 COVID-19 Vaccine ( season) 2024 09/08/2021, 08/09/2021, 11/12/2020, Additional history exists Depression Screening 08/30/2024 Cholesterol Screening (Lipid Panel) 01/01/2025 Colorectal Cancer Screening: Colonoscopy 01/01/2025 Falls Risk Assessment 01/01/2025 Hepatitis C Screening 01/01/2025 Medicare Annual Wellness Visit 01/01/2025 Osteoporosis Screening (Bone Density Screening) 01/01/2025 Social Influencers of Health Screening 01/01/2025 Diabetes: Annual Urine Albumin-Creatinine Ratio (uACR) 01/09/2025 Diabetes: Blood Sugar Control Test (HGBA1C) 01/09/2025 Influenza Vaccine (#1) 2025 HIB Vaccines Aged Out No longer [...] 20 months Aged Out No longer eligible based on patient's age to complete this topic Varicella Vaccines Aged Out No longer eligible based on patient's age to complete this topic Procedures Procedure Name Priority Date/Time Associated Diagnosis Comments XR FOOT 3+ VIEWS RIGHT Routine 02/01/2025 8:11 AM EDT Follow-up exam from Last 3 Months Results * XR Foot 3+ Views Right (02/01/2025 8:11 AM EDT) Anatomical Region Laterality Modality Lower Extremities, Foot Right Computed Radiography Narrative 02/01/2025 8:42 AM EDT Right foot 3 views weightbearing: Forefoot deformity secondary to previous surgical intervention and metatarsus adductus. Previous ostectomy of the first metatarsal head with loss of the capsular strength in the great toe which has caused rotation of the toe. Previous second metatarsal head resection. Previous third digit amputation. No fractures of the great toe is in a poor biomechanical position. Domingo Ramos DPM IMG XR PROCEDURES Final Res ult from Last 3 Months Insurance MEDICARE [facility] Care Teams Ship'S Pilot Relationship Specialty Start Date End Date Kiley Mazariegos NP [address] [place] [address] [place] [id number] PCP - General Family Medicine 11/25/18
--- NOTE | 2025-03-27 13:02 | A.OFFPC_ITS ---
Vital Signs 03/27/25 13:24 Height 5 ft 5 in Weight 195 lb BMI 32.4 BP 122/72 Blood Pressure Location Lt brachial Position Sitting Pulse 74 Pulse Source Pulse Oximeter Pulse Oximetry (%) 97 Intake Visit Reasons: Diabetic shoe visit, Nate dobbins Allergies Iodinated Contrast Media (IV Dye, Iodine Containing) Allergy (Severe, Verified 03/27/25 13:31) ANAPHYLAXIS shellfish derived (SHELLFISH DERIVED) Allergy (Severe, Verified 03/27/25 13:31) ANAPHYLAXIS diltiazem (Cardizem) Allergy (Unknown, Verified 03/27/25 13:31) sob and leg swelling gabapentin (GABAPENTIN) Allergy (Unknown, Verified 03/27/25 13:31) UNKNOWN-PATIENT REFUSES gadobutrol (Gadavist) Allergy (Unknown, Verified 03/27/25 13:31) Unknown iopromide (Ultravist) Allergy (Unknown, Verified 03/27/25 13:31) Unknown losartan Adverse Reaction (Mild, Verified 03/27/25 13:31) Abdominal Pain Medication List - Last Reconciled 03/27/25 by Surekha Yang MD apixaban (Eliquis) 5 mg PO BID metoprolol tartrate 100 mg (2 x 50 mg) PO BID Tobacco use date assessed: 01/11/25 Fall risk assessment: No Falls in past year Last assessed Fall Risk: 03/27/25 Dental Screening Dental Screen Date: 01/11/25 HPI Diabetic shoe visit, Nate dobbins HPI Details - The patient is a 74-year-old female w ith history of uncontrolled diabetes mellitus, needing prescription for diabetic shoes with inserts. She is currently being seen and followed by her word processor, Dr. Chao, who is treating her for her a diabetic ulcer , plantar calluses and fungal infection in her toenails. - She has attempted to manage her diabet es with diet, previously achieving an A1c of 5 % per patient, but currently refuses medication due to adverse effects experienced with metformin. - She has a history of toe amputation in 2018 and experiences peripheral neuropathy, with some loss of sensation noted under the toes. - The patient has experienced falls due to improper footwear, leading to frustration and a desire for better-fitting shoes. [facility] Medical History (Updated 03/28/25 @ 00:08 by Surekha Ynag MD) History of wrist fracture Plantar callus Tinea unguium Diabetes mellitus type 2 with retinopathy Diabetic retinopathy Hammer toe of right foot Diabetic macular edema Colonoscopy refused Mammogram declined Anxiety Sciatica of right side Chronic atrial fibrillation Hypercholesteremia HTN (hypertension) Surgical History History of amputation of right third toe H/O lumbosacral spine surgery History of cholecystectomy Family History Father Prostate cancer Mother Kidney disease Social History Housing: House Alcohol intake: never Patient Tobacco Use Status: Never used Tobacco e-Cigarette/Vaping Use: Never Used service: No Current occupational status: retired Current occupation: [employer] Cognitive needs: No Hearing needs: No Vision needs: No Questionnaire Thrive Questionnaire Date Thrive assessed: 03/27/25 I am a: Patient What is your living situation today?: I choose not to answer this question Within the past 12 months, did the food you bought not last and you didn't have the money to get more?: I choose not to answer this question Within the past 12 months, did you worry whether your food would run out before you got money to buy more?: I choose not to answer this question Do you have trouble paying for medicines?: I choose not to answer this question Do you have trouble getting transportation to medical appointments?: I choose not to answer this question Do you have trouble paying your heating and electricity bill?: I choose not to answer this question Do you have trouble taking care of your child, family member or friend?: I choose not to answer this question Do you have trouble with day-to-day activities such as bathing, preparing meals, shopping, managing finances, etc.?: I choose not to answer this question Are you currently unemployed and looking for a job?: I choose not to answer this question Are you interested in more education?: I choose not to answer this question Please select the resources that you would like help with: None Currently or been in a relationship where the following occur: I choose not to answer THRIVE Score: 0 AUDIT C Alcohol Use Questionnaire (AUDIT-C) 1. How often do you have a drink containing alcohol?: Never 3. How often do you have six or more drinks on one occasion?: Never Total Score: 0 Score Reviewed/Action Taken: Yes YONY-7 AMB Questionnaire YONY-7 Date YONY - 7 assessed: 03/27/25 Feeling nervous, anxious, or on edge: 0 = Not at all Not being able to stop or control worryin = Not at all Worrying too much about different things: 0 = Not at all Trouble relaxin = Not at all Being so restless that it is hard to sit still: 0 = Not at all Becoming easily annoyed or irritable: 0 = Not at all Feeling afraid as if something awful might happen: 0 = Not at all Total YONY-7 score (0-4 normal; 5-9 mild; 10-14 moderate; 15-21 severe): 0 Source: Developed by Drs. Pasha Johnson, Danii Mann, Farhad Reed and colleagues, with an educational sandeep from [employer]. YONY-7 Assessment Billing YONY-7 Assessment Tool: YONY-7 Assessment 74600 Review of Systems Const Denies fatigue, Denies headache(s) and Denies weight loss ENT Denies headache(s) Card Reports no additional complaints Resp Reports no additional complaints GI Reports no additional complaints Reports no additional complaints Musc Reports as per HPI Skin/Breast Reports as per HPI Neuro Denies headache(s) Endo Denies fatigue Cheko/Lymph Reports no additional complaints Physical exam (Primary Care) Vital Signs: Last Vital Signs Pulse 74 03/27/25 13:24 BP 122/72 03/27/25 13:24 Pulse Ox 97 03/27/25 13:24 BMI result Body Mass Index 32.4 Tobacco/Smoking Status: Tobacco use Status Tobacco use date assessed 01/11/25 03/27/25 13:03 Patient Tobacco Use Status Never used Tobacco 03/27/25 13:03 e-Cigarette/Vaping Use Never Used 03/27/25 13:03 Thrive Assessment: Date of Thrive Assessment Date Thrive assessed 03/27/25 03/27/25 13:24 Currently or been in a relationship where the following occur: I choose not to answer Const General: comfortable and no acute distress Resp Effort & Inspection: normal respiratory effort Auscultation: clear to auscultation bilaterally Cardio Rhythm: abnormal rhythm irregularly irregular Heart sounds: S1 normal heart sound present and S2 normal heart sound present Peripheral pulses: dorsalis pedis present bilateral Skin Other: Plantar calluses present , Dry scaly skin bilateral feet, left more than the right Nails: yellow and thickened (Toenails bilateral) Extrem Other: right third toe (distal aspect) amputated. plantar callus first toe . Monofilament testing absent plantar aspect of toes bilaterally, intact on dorsal aspect of both feet. Psych Appearance: grossly normal Mental Status: mental status grossly normal Speech and movement: Normal speech and movement present Coding Level of Care Code Est Pt Level 4 (56779) Diagnoses Diabetes mellitus type 2 with retinopathy E11.319 Refuses treatment Z53.20 Uncontrolled diabetes mellitus with hyperglycemia E11.65 History of amputation of right third toe Z89.421 Tinea unguium B35.1 Plantar callus L84 Additional Codes YONY-7 Assessment Billing - YONY-7 Assessment Tool: YONY-7 Assessment 13851 ([id number]) Assessment & Plan Assessment & Plan (1) Diabetes mellitus type 2 with retinopathy: Code(s): E11.319 - Type 2 diabetes mellitus with unspecified diabetic retinopathy without macular edema Category: Medical (2) Refuses treatment: Code(s): Z53.20 - Procedure and treatment not carried out because of patient's decision for unspecified reasons (3) Uncontrolled diabetes mellitus with hyperglycemia: Code(s): E11.65 - Type 2 diabetes mellitus with hyperglycemia Category: Medical (4) History of amputation of right third toe: Code(s): Z89.421 - Acquired absence of other right toe(s) Category: Surgical (5) Tinea unguium: Code(s): B35.1 - Tinea unguium Category: Medical (6) Plantar callus: Code(s): L84 - Corns and callosities Category: Medical Plan referred to [facility] for evaluation and fitting of appropriate diabetic footwear to prevent further complications from improper shoe fit. Currently being seen and followed by Dr. Chao word processor. A follow-up appointment is scheduled for July 09, with lab work to be completed a week prior to ensure results are available for review. The patient is advised to continue dietary management of diabetes and to monitor blood glucose levels closely. Patient does not want to be started on any medications for diabetes due to previous adverse reactions from metformin, would like to try diet and e xercise control her diabetes. Stressed importance of getting yearly diabetes eye exam. Patient was informed and verbally consented to the use of an ambient scribe for clinic note documentation during this visit.
[2025-03-27 13:24] VITALS: BP 122/72; PULSE 74; O2SAT 97; BMI 32.4
== END 2025-03-27 14:08 | disposition home or self-care (01) ==
LOC: HO.HMCC 12:00
PROVIDERS: PCP Nurse Practitioner Family; Visit Provider Internal Medicine
DX: E11.319 Type 2 diabetes mellitus with unspecified diabetic retinopathy without macular edema (principal); Z53.20 Procedure and treatment not carried out because of patient's decision for unspecified reasons; E11.65 Type 2 diabetes mellitus with hyperglycemia; Z89.421 Acquired absence of other right toe(s); B35.1 Tinea unguium; L84 Corns and callosities

== ENCOUNTER → 2025-03-27 11:59 | Outpatient (BNVA) | payer MEDICARE, SELFPAY | PROVIDERS: PCP Nurse Practitioner Family; Visit Provider Internal Medicine | DX: E11.319 Type 2 diabetes mellitus with unspecified diabetic retinopathy without macular edema (principal); E11.65 Type 2 diabetes mellitus with hyperglycemia; B35.1 Tinea unguium; L84 Corns and callosities; Z89.421 Acquired absence of other right toe(s) | CPT/HCPCS: 96127; 99212 ==

== ENCOUNTER → 2025-05-03 07:55 | Outpatient (REF) | payer MEDICARE, SELFPAY ==
--- OUTSIDE RECORDS SUMMARY | 2025-05-03 08:02 | XMS_ITS | Clinical Summary ---
Author Organization [facility] Address [address] [place] [address] Phone Care Team Providers Care Adjunct Latin Professor Name Role Phone Kiley Mazariegos LORENA Primary Care Provider [phone] Allergies Active Allergy Reactions Criticality Noted Date Comments Gabapentin Nausea Only 01/17/2025 Iodine Rash 01/17/2025 Shellfish Containing Products Anaphylaxis High 01/17 Medications No known medications Encounters Date Type Department Care Team Description 02/22/2025 10:30 AM EDT Office Visit [facility]opedic [facility] [address] [address] Domingo Ramos DPM Poorly controlled type 2 diabetes mellitus with neuropathy (CMS/HCC V24, CMS/HCC V28) (Primary Dx); History of amputation of lesser toe of right foot (CMS/[facility] V24); Ulcer of right heel, with fat layer exposed (CMS/HCC V24, CMS/HCC V28); Exostosis of right foot 02/08/2025 11:15 AM EDT Office Visit [facility] [address] [address] Domingo Ramos DPM Poorly controlled type 2 diabetes mellitus with neuropathy (CMS/HCC V24, CMS/HCC V28) (Primary Dx); History of amputation of lesser toe of right foot (CMS/HCC V24); Ulcer of right heel, with fat layer exposed (CMS/HCC V24, CMS/HCC V28); Exostosis of right foot 02/01/2025 8:00 AM EDT Office Visit [facility] [address] [phone] Domingo Ramos DPM Poorly controlled type 2 diabetes mellitus with neuropathy ([facility] V24, [facility] V28) (Primary Dx); History of amputation of lesser toe of right foot ([facility] V24); Ulcer of right heel, with fat layer exposed ([facility] V24, [facility] V28) from Last 3 Months [...] PM EDT Office Visit Orthopedic [facility] [place] [address] [phone] Anoop Ortiz DPM [address] [address] Health Maintenance Due Date Last Done Comments [...] - Risk 60-74 years 1-dose series) 2012 Depression Screening 08/30/2024 Cholesterol Screening (Lipid Panel) 01/01/2025 Colorectal Cancer Screening: Colonoscopy 01/01/2025 Falls Risk Assessment 01/01/2025 Hepatitis C Screening 01/01/2025 Medicare Annual Wellness Visit 01/01/2025 Osteoporosis Screening (Bone Density Screening) 01/01/2025 Social Influencers of Health Screening 01/01/2025 Diabetes: Annual Urine Albumin-Creatinine Ratio (uACR) 01/09/2025 Diabetes: Blood Sugar Control Test (HGBA1C) 01/09/2025 COVID-19 Vaccine ( season) 2025 09/08/2021, 08/09/2021, 11/12/2020, Additional history exists Influenza Vaccine (#1) 2025 HIB Vaccines Aged [...] ult from Last 3 Months Insurance MEDICARE [facility] Care Teams Adjunct Latin Professor Relationship Specialty Start Date End Date Kiley Mazariegos NP [address] [place] [address] [place] [id number] PCP - General Family Medicine 11/25/18
--- OUTSIDE RECORDS SUMMARY | 2025-05-03 08:02 | XMS_ITS | Patient Health Record ---
Author Organization [facility] Address [address] [place] [address] Care Team Providers Care Whale Trainer Name Role Phone Nate Olvera Primary Care Provider Unav ailAdi Loyola Unavailable [phone] Allergies Allergen (clinical drug ingredient) Drug/Non Drug [...] Wear Daily; Duration: 365 days 01/16/2025 Active Ammonium Lactate 12 % APPLY TO AFFECTED AREA EXTERNALLY TO FEET TWICE A DAY; Duration: 30 Not-Taking Immunizations Vaccine Route Administration Date Status Comme nts Influenza Unknown 07/31/2016 Refused Influenza Unknown 05/23/2018 Refused Influenza Unknown 11/19/2020 Refused Influenza Unknown 2025 Refused Pneumococcal Unknown 09/28/2016 Refused COVID-19 Moderna [...] Problem Acquired hammer toe of right foot (1714001446317 105) Other hammer toe(s) (acquired), right foot (M20.41) Active confirmed Problem Type 2 diabetes mellitus with peripheral angiopathy (942040885) Type 2 diabetes mellitus with diabetic peripheral angiopathy without gangrene (E11.51) Active confirmed Q7(A), Q8(2B), Q9(1B,2C) Problem Acquired hammer toe of left foot (1132641211207 103) Other hammer toe(s) (acquired), left foot (M20.42) Active confirmed Vital Signs Blood pressure diastolic 65 mm Hg 2025 Height 5ft5in in 2025 Blood pressure systolic 126 mm Hg 2025 Weight 190 lbs 2025 BMI 31.61 kg/m2 2025 Procedures Procedure Date Ordered Date Performed Result Body Sit e 21187-SBXLVXK NAIL, 6 OR MORE 07/18/2024 N/A 40767-TEJG SKIN LESIONS, OVER 4 07/18/2024 N/A 03754-XSJJBJK NAIL, 6 OR MORE 10/10/2024 N/A 24455-FBTCLJS SKIN/TISSUE 10/10/2024 N/A 56156-AESM SKIN LESIONS, OVER 4 10/10/2024 N/A 11015-NJUYQJY SKIN/TISSUE 11/03/2024 N/A 45137-GQMZYHL SKIN/TISSUE 12/05/2024 N/A 10525-WGNQKYJ NAIL, 6 OR MORE 01/16/2025 N/A 05454-ZVLQ SKIN LESIONS, OVER 4 01/16/2025 N/A 33841-QWFKDWR NAIL, 6 OR MORE 2025 N/A 22844-RIWW SKIN LESIONS, OVER 4 2025 N/A Encounters Encounter Location Date Provider Diagnosis [address] [address] 07/18/2024 Adi Chao Type 2 diabetes mellitus with diabetic peripheral angiopathy without gangrene E11.51 ; Tinea unguium B35.1 ; Pain in right toe(s) M79.674 ; Pain in left toe(s) M79.675 and Skin ulcer of toe of right foot, limited to breakdown of skin L97.[address] [address] 10/10/2024 Adi Chao Type 2 diabetes mellitus with diabetic peripheral angiopathy without gangrene E11.51 ; Tinea unguium B35.1 ; Pain in right toe(s) M79.674 ; Pain in left toe(s) M79.675 ; Tinea pedis of both feet B35.3 and Ischemic 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 L97.[address] [address] 11/03/2024 Aditavia Chao Tinea pedis of both feet B35.3 and Ischemic 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 L97.[address] [address] 12/05/2024 Adi Zhanna Ischemic 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 L97.[address] [address] 01/16/2025 Adi Chao Type 2 diabetes mellitus with diabetic peripheral angiopathy without gangrene E11.51 ; Tinea unguium B35.1 ; Pain in right toe(s) M79.674 ; Pain in left toe(s) M79.675 ; Ischemic 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 L97.512 ; Other hammer toe(s) (acquired), right foot M20.41 and Other hammer toe(s) (acquired), left foot M20.[address] [address] 2025 Adi Chao Type 2 diabetes mellitus with diabetic peripheral angiopathy without gangrene E11.51 ; Tinea unguium B35.1 ; Pain in right toe(s) M79.674 and Pain in left toe(s) M79.[address] [address] 09/04/2024 Adi Chao Tinea pedis of both feet B35.[address] [address] 10/11/2024 Adi Chao [address] [address] 02/19/2025 Adi Chao Assessments Encounter Date Diagnosis (ICD Code) Assessment Notes Treatment Notes Treatment Clinical Notes Section Notes 07/18/2024 Type 2 diabetes mellitus with diabetic [...] Q9(1B,2C) 01/16/2025 Tinea unguium (ICD-10 - B35.1) 2025 Type 2 diabetes mellitus with diabetic peripheral angiopathy without gangrene (ICD-10 - E11.51) Q7(A), Q8(2B), Q9(1B,2C) 2025 Tinea unguium (ICD-10 - B35.1) 01/16/2025 Pain in right toe(s) (ICD-10 - M79.674) 2025 Pain in right toe(s) (ICD-10 - M79.674) 07/18/2024 Pain in right toe(s) (ICD-10 - M79.674) 10/10/2024 Pain in right toe(s) (ICD-10 - M79.674) 07/18/2024 Pain in left toe(s) (ICD-10 - M79.675) 10/10/2024 Pain in left toe(s) (ICD-10 - M79.675) 01/16/2025 Pain in left toe(s) (ICD-10 - M79.675) 2025 Pain in left toe(s) (ICD-10 - M79.675) 01/16/2025 Ischemic 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 (ICD-10 - L97.512) 10/10/2024 Tinea pedis of both feet (ICD-10 - B35.3) 07/18/2024 Skin ulcer of toe of right foot, limited to breakdown of skin (ICD-10 - L97.511) 10/10/2024 Ischemic 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 (ICD-10 - L97.512) Response to treatment Nonapplicable Patient Educated with: WOUND CARE INSTRUCTIONS.p df (WOUND CARE INSTRUCTIONS.p df) 01/16/2025 Other hammer toe(s) (acquired), right foot (ICD-10 - M20.41) Patient Educated with: DIABETIC FOOT CARE INSTRUCTIONS.p df (DIABETIC FOOT CARE INSTRUCTIONS.p df) 01/16/2025 Other hammer toe(s) (acquired), left foot (ICD-10 - M20.42) 07/18/2024 Other 2025 Other Plan Of Treatment Pending Test Test [...] X ray : Foot, right 3V 07/18/2018 14253-ZFDTUDO NAIL, 6 OR MORE 11/17/2019 42436-UHPFKYB NAIL, 6 OR MORE 01/30/2020 45221-GTEMUDW NAIL, 6 OR MORE 04/09/2020 81059-IQHYPKN NAIL, 6 OR MORE 06/14/2020 61029-EHGISEG NAIL, 6 OR MORE 04/07/2017 02127-QRAPUWX NAIL, 6 OR MORE 10/04/2017 30463-NMYLONX NAIL, 6 OR MORE 12/06/2017 82674-LAMPXAO NAIL, 6 OR MORE 02/23/2018 98083-IROJYJG NAIL, 6 OR MORE 07/26/2017 49801-OWDBARN NAIL, 6 OR MORE 04/28/2018 31183-KLCXUPL NAIL, 6 OR MORE 11/04/2015 70147-MAHAUCR NAIL, 6 OR MORE 02/05/2016 30960-TVKVPJF NAIL, 6 OR MORE 04/20/2016 65556-WEFQGSD NAIL, 6 OR MORE 06/22/2016 04315-BVWAXDU NAIL, 6 OR MORE 09/07/2016 21176-MURHMYJ NAIL, 6 OR MORE 11/16/2016 03092-TDUGWFQ NAIL, 6 OR MORE 09/03/2020 80767-MNNOYSN NAIL, 6 OR MORE 11/19/2020 69823-FFJXLJN NAIL, 6 OR MORE 02/21/2021 29174-JJVLXOZ NAIL, 6 OR MORE 05/23/2021 83918-JJOKYUB NAIL, 6 OR MORE 07/18/2021 26974-YLROJXB NAIL, 6 OR MORE 10/07/2021 16322-FLQMAOS NAIL, 6 OR MORE 12/19/2021 21723-DYKJEJD NAIL, 6 OR MORE 02/27/2022 26800-UKEUFRZ NAIL, 6 OR MORE 05/15/2022 00122-AQOZVAK NAIL, 6 OR MORE 07/31/2022 48956-AOQAGNK NAIL, 6 OR MORE 10/16/2022 09210-GTTZWNY NAIL, 6 OR MORE 12/22/2022 58428-WFRBBOH NAIL, 6 OR MORE 02/26/2023 14577-URRPMXK NAIL, 6 OR MORE 06/18/2023 84979-QNLKEKD NAIL, 6 OR MORE 09/03/2023 26653-SFCELLD NAIL, 6 OR MORE 11/23/2023 86439-IHLXMIN NAIL, 6 OR MORE 02/01/2024 69664-OZSFZUG NAIL, 6 OR MORE 04/18/2024 17196-LBUWPTW NAIL, 6 OR MORE 07/18/2024 48166-NPPSQCD NAIL, 6 OR MORE 10/10/2024 09428-UHSYZRR NAIL, 6 OR MORE 01/16/2025 21775-EIVGTSJ NAIL, 6 OR MORE 2025 79852-ZMTUPYM NAIL, 1-5 03/13/2015 11474-JVAJBKS NAIL, 1-5 07/11/2014 95454-OISAPLC NAIL, 1-5 12/13/2014 95867-MMOOAPX NAIL, 1-5 05/29/2015 69241-DSNLWEZ NAIL, 1-5 08/07/2015 99830- Debride <25 sq cm 10/27/2017 30857- Debride <25 sq cm 09/03/2017 55664- Debride <25 sq cm 09/14/2017 77084- Debride <25 sq cm 09/22/2017 21967- Debride <25 sq cm 10/04/2017 42600- Debride <25 sq cm 06/23/2018 27693- Debride <25 sq cm 06/29/2018 98609- Debride <25 sq cm 04/18/2024 62215-IMMNHEW SKIN/TISSUE 10/10/2024 84709-PXJUDHG SKIN/TISSUE 11/03/2024 07753-HSAPBQF SKIN/TISSUE 12/05/2024 88036-UJLPHKA SKIN/TISSUE 07/07/2018 96257 I&D ABSCESS- SIMPLE,SINGLE 017 42076-AGIG SKIN LESIONS, OVER 4 01/21/20 17 17717-EJPS SKIN LESIONS, OVER 4 04/07/20 17 92852-PWMV SKIN LESIONS, OVER 4 11/17/19 17 88403-SLRF SKIN LESIONS, OVER 4 09/07/19 17 05702-DRJT SKIN LESIONS, OVER 4 06/22/20 16 77412-OGVJ SKIN LESIONS, OVER 4 04/20/20 16 78497-GOZB SKIN LESIONS, OVER 4 02/05/20 16 01965-KYJX SKIN LESIONS, OVER 4 11/04/19 16 90116-HDPV SKIN LESIONS, OVER 4 08/07/20 15 77689-XBJN SKIN LESIONS, OVER 4 05/29/20 15 17241-KAAU SKIN LESIONS, OVER 4 03/13/20 15 85557-TVWD SKIN LESIONS, OVER 4 06/14/20 20 72945-TXMK SKIN LESIONS, OVER 4 04/09/20 20 67889-HMHZ SKIN LESIONS, OVER 4 11/17/19 20 80825-BHFP SKIN LESIONS, OVER 4 01/30/20 20 71407-SZDG SKIN LESIONS, OVER 4 10/04/19 18 25664-NRBT SKIN LESIONS, OVER 4 07/26/20 17 41965-KQQS SKIN LESIONS, OVER 4 12/07/19 18 09123-IPYW SKIN LESIONS, OVER 4 02/24/20 18 70777-MNWY SKIN LESIONS, OVER 4 04/28/20 18 65491-LVXQ SKIN LESIONS, OVER 4 10/10/19 25 42310-RXGU SKIN LESIONS, OVER 4 07/18/20 24 70536-KGUZ SKIN LESIONS, OVER 4 04/18/20 24 75973-XXSK SKIN LESIONS, OVER 4 04/24/20 25 94526-GDSD SKIN LESIONS, OVER 4 01/17/20 26514-LLAZ SKIN LESIONS, OVER 4 02/01/20 83471-LGPE SKIN LESIONS, OVER 4 11/23/19 97129-QSVZ SKIN LESIONS, OVER 4 09/03/19 78675-EBOM SKIN LESIONS, OVER 4 06/18/20 31411-XHQY SKIN LESIONS, OVER 4 02/27/20 91747-WMTY SKIN LESIONS, OVER 4 12/23/19 93368-VOYE SKIN LESIONS, OVER 4 10/16/19 45765-VJXK SKIN LESIONS, OVER 4 07/31/20 79809-DSMZ SKIN LESIONS, OVER 4 05/15/20 57708-ILFG SKIN LESIONS, OVER 4 02/28/20 49419-GXZS SKIN LESIONS, OVER 4 12/20/19 83967-GFKU SKIN LESIONS, OVER 4 10/07/19 99691-LGAC SKIN LESIONS, OVER 4 07/18/20 82401-UIVE SKIN LESIONS, OVER 4 02/22/20 25285-HYKE SKIN LESIONS, OVER 4 05/23/20 21 51804-MSOQ SKIN LESIONS, OVER 4 11/20/19 21 56597-UAVP SKIN LESIONS, OVER 4 09/03/19 46685-RSHV SKIN LESIONS, 2 TO 4 12/14/19 15 28011-CEVB SKIN LESIONS, 2 TO 4 07/11/20 14 04189-Jvlm. Subungual Hematoma 54673-DXFR NAIL(S) 07/11/2014 04373-BZIM NAIL(S) 12/13/2014 56835-UAHG NAIL(S) 03/13/2015 90475-NSVI NAIL(S) 05/29/2015 68189-AAPH NAIL(S) 08/07/2015 68897-ESWZBCIJ OF HEMATOMA/FLUID 018 19686-JDMQSOPS OF HEMATOMA/FLUID 018 98921- Removal of Foreign Body, Subcut 0 03/28/2015 00718- Removal of Foreign Body, Subcut 0 01/20/2017 03750- Removal of Foreign Body, Subcut 0 02/26/2023 87993, J0702- Neuroma/Injection 04/20/20 16 Next Appt Details Provider Name:Adi Chao , 07/31/2025 09:30:00 AM, [address] [facility], [place], [address], Insurance Providers Payer Name Payer Address Payer Phone Subscriber Number Group Number Insured Name Patient Relationship to Insured Coverage Start Date Coverage End Date Medicare National [employer] [address] [place] [address] [id number] CouAnastasiya wade Self - patient is the insured 0 [employer] [address] [place] [address] [id number] Anastasiya Phan Self - patient is the insured Medical (General) History Medical History History ICD Code Measles Chicken pox Mumps Transfusions type II diabetes Surgical History Surgery Date(Month/Year) knee surgery cholecystectomy rotator cuff tear repair Rubio Bunionectomy R, HT R2,3, ORIF R2n d MTPJ 05/19/2018 nose bleed cauterized nose 05/02/2022 Hospitalization History Reason Date(Month/Year)
--- NOTE | 2025-05-03 08:26 | CA_ITS ---
Transthoracic Echocardiogram Patient (Last, First, Middle): Anastasiya Phan A Gender: F Date of : 1950 Age: 75 Procedure Date: 05/03/2025 Procedure Type: Transthoracic Echocardiogram Location: OP Height: 165.1 cm Weight: 88.45 kg BSA: 1.96 m2 Heart Rate: bpm BP: 122 / 72 mmHg Radiator Repairer: ASHLEY Referring MD: Parish Juan MD Academic Tutor: Parish Juan MD Symptoms: I48.20 - Chronic atrial fibrillation, unspecified Study Quality: Technically Difficult ECG Rhythm: Atrial Fibrillation Conclusions: - 1. Low normal LV ejection fraction 50-55% with mild LVH 2. Severe left atrial enlargement 3. Severe mitral annular calcification with mild mitral regurgitation 4. Upper limits of normal RV systolic pressure with mildly elevated right atrial pressures Findings Left Ventricle Normal left ventricular cavity size. There is mildly increased left ventricular wall thickness. The left ventricular systolic function is low normal. The visually estimated ejection fraction is between 50-55%. Diastolic function is indeterminate on the basis of available data. Right Ventricle The right ventricle was not well visualized. Atria The left atrium is severely dilated. Interatrial shunt cannot be excluded. The right atrium was not well visualized. Aortic Valve The aortic valve was not well visualized. There is no aortic valve stenosis. There is no aortic valve regurgitation. Mitral Valve The mitral valve was not well visualized. There is severe posterior mitral leaflet thickening. There is severe mitral annular calcification. There is mild mitral valve regurgitation. There is no mitral valve stenosis. Pulmonic Valve The pulmonic valve was not well visualized. Tricuspid Valve There is trace tricuspid valve regurgitation. The right ventricular systolic pressure is 40 mmHg. Mildly elevated right atrial pressure. There is no evidence of pulmonary hypertension. Great Vessels The aorta was not well visualized. The pulmonary artery was not well visualized. Venous The inferior vena cava is mildly dilated and collapses less than 50% with inspiration. Pericardium/Pleural The pericardium was not well visualized. Prior Study Comparison Changes noted compared to prior study dated: 03/05/2023. LV ejection fraction is in low normal range Measurements 2D Linear Measurements IVSd: 1.30 0.6-0.9/0.6-1.0 cm LVIDd: 4.17 3.9-5.3/4.2-5.9 cm LVIDd Index: 2.13 2.4-3.2/2.2-3.1 cm/m2 LVIDs: 3.04 2.0-3.6 cm LVPWd: 1.27 0.7-1.1 cm LA Diam: 4.10 2.7-3.8/3.0-4.0 cm LAIDs Index: 2.09 1.5-2.3 cm/m2 LV Mass: 243.02 67-162/88-224 g LV Mass Index: 123.99 43-95/49-115 g/m2 LVOT Diam: 1.80 3.0+(-)1.3 cm 2D Systolic Function EF Teich: 52.00 >55% EF 4C: 52.70 >55% Mitral Valve MV VTI: 0.35 MV Pk Arian: 1.71 MV Mn Arian: 0.84 MV Pk Grad: 12.00 MV Mn Grad: 4.00 MV Pk E: 1.61 E'Lateral: 6.00 E'Medial: 4.46 E/E' Med: 36.10 E/E' Lat: 26.80 MVA Continuity: 1.07 Aortic Valve AoV Pk Arian: 1.15 AoV Mn Arian: 0.78 AoV VTI: 0.23 AoV Pk Grad: 5.00 Aov Mn Grad: 3.00 JUANIS Cont.VTI: 1.67 LVOT LVOT Pk Arian: 0.79 LVOT Mn Arian: 0.53 LVOT VTI: 0.15 LVOT Pk Grad: 2.00 LVOT Mn Grad: 1.00 LVOT Diam: 1.80 LVOT Area: 2.54 Diastolic Function MV Pk E: 1.61 E'Medial: 4.46 E/E' Med: 36.10 E' Laterial: 6.00 E/E' Lat: 26.80 Right Ventricle TAPSE (mm): 13.80 Tricuspid Valve TR Pk Arian: 2.81 TR Pk Grad: 32.00 RA Press: 8.00 RVSP: 40.00 Great Vessels Aorta Sinus of Valsalva: 3.30 2.0-3.5 cm Ao Asc: 2.80 2.1-3.4 cm Pulmonary Valve PV Pk Arian: 0.71 Peak PV Grad: 2.00 Updated in Other Vendor System with Status of Final Parish Juan MD electronically signed on 05/03/2025 12:53:21 PM with status of Final
== END ==
LOC: HO.CARD 07:55
PROVIDERS: PCP Nurse Practitioner Family; Visit Provider Internal Medicine Cardiovascular Disease
DX: I48.20 Chronic atrial fibrillation, unspecified (principal)
CPT/HCPCS: 93306

== ENCOUNTER → 2025-05-03 08:26 | Outpatient (BNV) | payer MEDICARE, SELFPAY | PROVIDERS: PCP Nurse Practitioner Family; Visit Provider Internal Medicine Cardiovascular Disease | DX: I34.0 Nonrheumatic mitral (valve) insufficiency (principal); I34.81 Nonrheumatic mitral (valve) annulus calcification; I51.7 Cardiomegaly | CPT/HCPCS: 93306 ==

== ENCOUNTER 2025-05-24 07:45 | Outpatient (AMB) | payer MEDICARE, SELFPAY ==
--- OUTSIDE RECORDS SUMMARY | 2025-05-24 07:49 | XMS_ITS | Clinical Summary ---
Author Organization [facility] Address [address] [place] [address] Phone Care Team Providers Care Hand Mold Maker Name Role Phone Kiley Mazariegos LORENA Primary Care Provider [phone] Allergies Active Allergy Reactions Criticality Noted Date Comments Gabapentin Nausea Only 01/17/2025 Iodine Rash 01/17/2025 Shellfish Containing Products Anaphylaxis High 01/17 Medications ammonium lactate (AMLACTIN) 12 % cream APPLY TO AFFECTED AREA EXTERNALLY TO FEET TWICE A DAY; Duration: 30 Active Eliquis 5 mg tablet Take 1 tablet (5 mg total) by mouth 2 (two) times a day. Active cadexomer iodine (IODOSORB) 0.9 % gel as directed Externally Apply to ulceration daily with dry sterile dressing for 30 days Active ciclopirox (LOPROX) 0.77 % cream 1 Application. Activ e metoprolol tartrate (LOPRESSOR) 25 mg tablet 1 tablet (25 mg total) every 12 hours. Active Encounters Date Type Department Care Team Description 05/07/2025 2:00 PM EDT Office Visit Orthopedic Surgery [facility] [address] [place] [phone] Anoop Ortiz DPM Acquired hallux valgus of right foot (Primary Dx); History of amputation of lesser toe of right foot ([facility] V24) 02/22/2025 10:30 AM EDT Office Visit Orthopedic [facility] [address] [phone] Domingo Ramos DPM Poorly controlled type 2 diabetes mellitus with neuropathy (CMS/[facility] V24, [facility] V28) (Primary Dx); History of amputation of lesser toe of right foot (CMS/HCC V24); Ulcer of right heel, with fat layer exposed (CMS/HCC V24, CMS/HCC V28); Exostosis of right foot from Last 3 Months Social History Tobacco [...] Care Team (Late st Contact Info) Description 07/11/2025 9:00 AM EST Office Visit Orthopedic Surgery - [place] [address] [phone] Anoop Ortiz, DPM [address] [phone] Health Maintenance Due Date Last [...] age to complete this topic Insurance MEDICARE [facility] Care Teams Hand Mold Maker Relationship Specialty Start Date End Date Kiley Mazariegos NP [address] [facility] [address] [place] [phone] PCP - General Family Medicine 11/25/18
--- OUTSIDE RECORDS SUMMARY | 2025-05-24 07:49 | XMS_ITS | Patient Health Record ---
Author Organization [facility] Address [address] [place] [address] Care Team Providers Care Coloring Room Man Name Role Phone Nate Olvera Primary Care Provider Unav ailAdi Loyola Unavailable [phone] Allergies Allergen (clinical drug ingredient) Drug/Non Drug [...] Problem Acquired hammer toe of right foot (0529453492120 105) Other hammer toe(s) (acquired), right foot (M20.41) Active confirmed Problem Type 2 diabetes mellitus with peripheral angiopathy (544010831) Type 2 diabetes mellitus with diabetic peripheral angiopathy without gangrene (E11.51) Active confirmed Q7(A), Q8(2B), Q9(1B,2C) Problem Acquired hammer toe of left foot (3802420490429 103) Other hammer toe(s) (acquired), left foot (M20.42) Active confirmed Vital Signs Blood pressure diastolic 65 mm Hg 2025 Height 5ft5in in 2025 Blood pressure systolic 126 mm Hg 2025 Weight 190 lbs 2025 BMI 31.61 kg/m2 2025 Procedures Procedure Date Ordered Date Performed Result Body Sit e 55418-DUVOWLN NAIL, 6 OR MORE 07/18/2024 N/A 50937-EUQO SKIN LESIONS, OVER 4 07/18/2024 N/A 57092-HAPLFFG NAIL, 6 OR MORE 10/10/2024 N/A 39108-CIGJFJH SKIN/TISSUE 10/10/2024 N/A 42738-NNSL SKIN LESIONS, OVER 4 10/10/2024 N/A 78042-LKYTVQJ SKIN/TISSUE 11/03/2024 N/A 98396-NLOXOSU SKIN/TISSUE 12/05/2024 N/A 32840-IAWBDEY NAIL, 6 OR MORE 01/16/2025 N/A 58211-GXPK SKIN LESIONS, OVER 4 01/16/2025 N/A 28702-WPEFIVO NAIL, 6 OR MORE 2025 N/A 67852-KAOU SKIN LESIONS, OVER 4 2025 N/A Encounters Encounter Location Date Provider Diagnosis [address] [address] 07/18/2024 Adi Chao Type 2 diabetes mellitus with diabetic peripheral angiopathy without gangrene E11.51 ; Tinea unguium B35.1 ; Pain in right toe(s) M79.674 ; Pain in left toe(s) M79.675 and Skin ulcer of toe of right foot, limited to breakdown of skin L97.[address] [address] 10/10/2024 Adi Chao Type 2 diabetes mellitus with diabetic peripheral angiopathy without gangrene E11.51 ; Tinea unguium B35.1 ; Pain in right toe(s) M79.674 ; Pain in left toe(s) M79.675 ; Tinea pedis of both feet B35.3 and Ischemic 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 L97.[address] [address] 11/03/2024 Aditavia Chao Tinea pedis of both feet B35.3 and Ischemic 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 L97.[address] [address] 12/05/2024 Adi Zhanna Ischemic 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 L97.[address] [address] 01/16/2025 Adi Chao Type 2 diabetes mellitus with diabetic peripheral angiopathy without gangrene E11.51 ; Tinea unguium B35.1 ; Pain in right toe(s) M79.674 ; Pain in left toe(s) M79.675 ; Ischemic 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 L97.512 ; Other hammer toe(s) (acquired), right foot M20.41 and Other hammer toe(s) (acquired), left foot M20.[address] [address] 2025 Adi Chao Type 2 diabetes mellitus with diabetic peripheral angiopathy without gangrene E11.51 ; Tinea unguium B35.1 ; Pain in right toe(s) M79.674 and Pain in left toe(s) M79.[address] [address] 09/04/2024 Adi Chao Tinea pedis of both feet B35.[address] [address] 10/11/2024 Adi Chao [address] [address] 02/19/2025 Adi Chao Assessments Encounter Date Diagnosis [...] X ray : Foot, right 3V 07/18/2018 37965-IDIDOAJ NAIL, 6 OR MORE 11/17/2019 33702-YYEFMDV NAIL, 6 OR MORE 01/30/2020 25683-GLODKNJ NAIL, 6 OR MORE 04/09/2020 30317-MMFWVFR NAIL, 6 OR MORE 06/14/2020 73574-FXERPOM NAIL, 6 OR MORE 04/07/2017 57660-GURTYMX NAIL, 6 OR MORE 10/04/2017 07724-UBKJUJB NAIL, 6 OR MORE 12/06/2017 10619-SBKLANE NAIL, 6 OR MORE 02/23/2018 34514-RRYXIYS NAIL, 6 OR MORE 07/26/2017 93126-QCYHWKC NAIL, 6 OR MORE 04/28/2018 81166-ZPYZLMM NAIL, 6 OR MORE 11/04/2015 85190-RMPBBBG NAIL, 6 OR MORE 02/05/2016 50701-JQURYZG NAIL, 6 OR MORE 04/20/2016 83324-GGPEUZA NAIL, 6 OR MORE 06/22/2016 23252-AZBVLRX NAIL, 6 OR MORE 09/07/2016 84469-TXUSBNP NAIL, 6 OR MORE 11/16/2016 63260-AHDYJNX NAIL, 6 OR MORE 09/03/2020 11482-YIVJSRP NAIL, 6 OR MORE 11/19/2020 60497-LSTSGDK NAIL, 6 OR MORE 02/21/2021 85171-GGZVHXH NAIL, 6 OR MORE 05/23/2021 13413-DTGSZIU NAIL, 6 OR MORE 07/18/2021 72860-DCTXZCH NAIL, 6 OR MORE 10/07/2021 81517-MJYOOMP NAIL, 6 OR MORE 12/19/2021 36070-UYWMEVG NAIL, 6 OR MORE 02/27/2022 71657-CBOTIWC NAIL, 6 OR MORE 05/15/2022 97920-IDPQVKL NAIL, 6 OR MORE 07/31/2022 75801-ZHLYKIQ NAIL, 6 OR MORE 10/16/2022 51248-TLZYQMO NAIL, 6 OR MORE 12/22/2022 85320-VNCQXRU NAIL, 6 OR MORE 02/26/2023 22409-QBSFPSL NAIL, 6 OR MORE 06/18/2023 29930-BVRXBZN NAIL, 6 OR MORE 09/03/2023 74583-LXVWQCE NAIL, 6 OR MORE 11/23/2023 57427-BLRSDEY NAIL, 6 OR MORE 02/01/2024 90420-OOJFANN NAIL, 6 OR MORE 04/18/2024 72934-CBKPLCW NAIL, 6 OR MORE 07/18/2024 40846-PXXPHCU NAIL, 6 OR MORE 10/10/2024 87884-VUXAOFG NAIL, 6 OR MORE 01/16/2025 87593-AMCJICE NAIL, 6 OR MORE 2025 26579-PGGPKZJ NAIL, 1-5 03/13/2015 54004-NDRABJF NAIL, 1-5 07/11/2014 87812-IPFBKSE NAIL, 1-5 12/13/2014 31541-IVONTRR NAIL, 1-5 05/29/2015 79803-FLGKFOC NAIL, 1-5 08/07/2015 32307- Debride <25 sq cm 10/27/2017 55424- Debride <25 sq cm 09/03/2017 39596- Debride <25 sq cm 09/14/2017 20202- Debride <25 sq cm 09/22/2017 82995- Debride <25 sq cm 10/04/2017 75582- Debride <25 sq cm 06/23/2018 11127- Debride <25 sq cm 06/29/2018 37884- Debride <25 sq cm 04/18/2024 45174-RNUMTYV SKIN/TISSUE 10/10/2024 18785-RCKKIDH SKIN/TISSUE 11/03/2024 92666-EUSUZTF SKIN/TISSUE 12/05/2024 66288-AHITYWF SKIN/TISSUE 07/07/2018 21980 I&D ABSCESS- SIMPLE,SINGLE 017 48543-EYQR SKIN LESIONS, OVER 4 01/21/20 17 90176-JUTK SKIN LESIONS, OVER 4 04/07/20 17 88005-TKZB SKIN LESIONS, OVER 4 11/17/19 17 74507-PZKL SKIN LESIONS, OVER 4 09/07/19 17 26590-DYMR SKIN LESIONS, OVER 4 06/22/20 16 28645-DLRG SKIN LESIONS, OVER 4 04/20/20 16 77615-DHGM SKIN LESIONS, OVER 4 02/05/20 16 05973-GEBM SKIN LESIONS, OVER 4 11/04/19 16 34429-GVCC SKIN LESIONS, OVER 4 08/07/20 15 79891-LKVT SKIN LESIONS, OVER 4 05/29/20 15 00058-CTZR SKIN LESIONS, OVER 4 03/13/20 15 50305-JKFX SKIN LESIONS, OVER 4 06/14/20 20 73147-RRCJ SKIN LESIONS, OVER 4 04/09/20 20 28238-IXAO SKIN LESIONS, OVER 4 11/17/19 20 06323-ASUO SKIN LESIONS, OVER 4 01/30/20 20 62231-ISWO SKIN LESIONS, OVER 4 10/04/19 18 33342-UZJM SKIN LESIONS, OVER 4 07/26/20 17 06035-GBRE SKIN LESIONS, OVER 4 12/07/19 18 41316-OCKM SKIN LESIONS, OVER 4 02/24/20 18 78945-ULQN SKIN LESIONS, OVER 4 04/28/20 18 98405-XFDZ SKIN LESIONS, OVER 4 10/10/19 25 81336-MSGI SKIN LESIONS, OVER 4 07/18/20 24 12347-SJAZ SKIN LESIONS, OVER 4 04/18/20 24 79704-NUQQ SKIN LESIONS, OVER 4 04/24/20 25 46158-PXKD SKIN LESIONS, OVER 4 01/17/20 59040-SRTN SKIN LESIONS, OVER 4 02/01/20 67051-TDBC SKIN LESIONS, OVER 4 11/23/19 15143-IWKD SKIN LESIONS, OVER 4 09/03/19 41263-MMNK SKIN LESIONS, OVER 4 06/18/20 31378-BRAX SKIN LESIONS, OVER 4 02/27/20 56472-YAUK SKIN LESIONS, OVER 4 12/23/19 55914-OCTP SKIN LESIONS, OVER 4 10/16/19 90418-HTZX SKIN LESIONS, OVER 4 07/31/20 02037-YKRW SKIN LESIONS, OVER 4 05/15/20 15303-BCEZ SKIN LESIONS, OVER 4 02/28/20 50878-NHOR SKIN LESIONS, OVER 4 12/20/19 76349-WCAS SKIN LESIONS, OVER 4 10/07/19 24561-RIZE SKIN LESIONS, OVER 4 07/18/20 52695-CUBS SKIN LESIONS, OVER 4 02/22/20 26809-VUGT SKIN LESIONS, OVER 4 05/23/20 21 97821-ZJCE SKIN LESIONS, OVER 4 11/20/19 21 55100-IBZN SKIN LESIONS, OVER 4 09/03/19 91607-ONZW SKIN LESIONS, 2 TO 4 12/14/19 15 00200-VRZQ SKIN LESIONS, 2 TO 4 07/11/20 14 19914-Ljmo. Subungual Hematoma 14108-NVIY NAIL(S) 07/11/2014 62364-YXTH NAIL(S) 12/13/2014 87196-OIRG NAIL(S) 03/13/2015 57612-AQBK NAIL(S) 05/29/2015 81708-KKPS NAIL(S) 08/07/2015 49070-FKWSKYAR OF HEMATOMA/FLUID 018 78606-ITLAPMCS OF HEMATOMA/FLUID 018 17789- Removal of Foreign Body, Subcut 0 03/28/2015 85769- Removal of Foreign Body, Subcut 0 01/20/2017 96627- Removal of Foreign Body, Subcut 0 02/26/2023 57705, J0702- Neuroma/Injection 04/20/20 16 Next Appt Details Provider Name:Adi Chao , 07/31/2025 09:30:00 AM, [address] [facility], [place], [address], Insurance Providers Payer Name Payer Address Payer Phone Subscriber Number Group Number Insured Name Patient Relationship to Insured Coverage Start Date Coverage End Date Medicare National [employer]t [employer] [address] [place] [address] [id number] CouAnastasiya wade Self - patient is the insured 0 [employer] [address] [place] [address] [id number] Anastasiya Phan Self - patient is the insured Medical (General) History Medical History History ICD Code Measles Chicken pox Mumps Transfusions type II diabetes Surgical History Surgery Date(Month/Year) knee surgery cholecystectomy rotator cuff tear repair Rubio Bunionectomy R, HT R2,3, ORIF R2n d MTPJ 05/19/2018 nose bleed cauterized nose 05/02/2022 Hospitalization History Reason Date(Month/Year)
[2025-05-24 08:34] VITALS: BP 132/88; PULSE 77; BMI 31.3
--- NOTE | 2025-05-24 08:34 | MHC.OFFVIS ---
Vital Signs 05/24/25 08:34 Height 5 ft 5 in Weight 188 lb 4.396 oz BMI 31.3 BP 132/88 Blood Pressure Location Lt brachial Position Sitting Pulse 77 Pulse Source Monitor Intake Visit Reasons: 1 yr f/up echo Intake Note: 1 year f/u echo Allergies Iodinated Contrast Media (IV Dye, Iodine Containing) Allergy (Severe, Verified 05/24/25 08:38) ANAPHYLAXIS shellfish derived (SHELLFISH DERIVED) Allergy (Severe, Verified 05/24/25 08:38) ANAPHYLAXIS diltiazem (Cardizem) Allergy (Unknown, Verified 05/24/25 08:38) sob and leg swelling gabapentin (GABAPENTIN) Allergy (Unknown, Verified 05/24/25 08:38) UNKNOWN-PATIENT REFUSES gadobutrol (Gadavist) Allergy (Unknown, Verified 05/24/25 08:38) Unknown iopromide (Ultravist) Allergy (Unknown, Verified 05/24/25 08:38) Unknown losartan Adverse Reaction (Mild, Verified 05/24/25 08:38) Abdominal Pain Medication List - Last Reconciled 05/24/25 by Parish Juan MD apixaban (Eliquis) 5 mg PO BID metoprolol tartrate 100 mg (2 x 50 mg) PO BID HPI Comments Details: Anastasiya comes for her yearly follow-up. He has been doing okay without any obvious cardiac complaints. Her main issue with exercise are her foot issues in his right foot. This limits her activity level. Otherwise she is able to maintain activity without any significant symptoms. No worsening shortness of breath. No orthopnea, PND, leg edema. No exertional chest pain. She denies any lightheadedness, syncope. No prolonged irregular heartbeat or palpitations. No bleeding issues or neurologic events. Her recent echocardiogram showed low normal LVEF of 50-55% with mild LVH with severe left atrial enlargement with mild mitral regurgitation. [facility] Medical History History of wrist fracture Plantar callus Tinea unguium Diabetes mellitus type 2 with retinopathy Diabetic retinopathy Hammer toe of right foot Diabetic macular edema Colonoscopy refused Mammogram declined Anxiety Sciatica of right side Chronic atrial fibrillation Hypercholesteremia HTN (hypertension) Surgical History History of amputation of right third toe H/O lumbosacral spine surgery History of cholecystectomy Family History Father Prostate cancer Mother Kidney disease Social History Housing: House Alcohol intake: never Patient Tobacco Use Status: Never used Tobacco e-Cigarette/Vaping Use: Never Used service: No Current occupational status: retired Current occupation: Rt handed Cognitive needs: No Hearing needs: No Vision needs: No Review of Systems Const Denies daytime sleepiness, Denies difficulty sleeping, Denies snoring, Denies stops breathing during sleep and Denies weakness Card Denies chest pain, Denies rapid heart rate, Denies irregular heart rhythm, Denies claudication, Denies leg edema, Denies lightheadedness, Denies palpitations, Denies dyspnea, Denies dyspnea on exertion, Denies orthopnea, Denies paroxysmal nocturnal dyspnea and Denies slow heart rate Resp Denies cough, Denies dyspnea, Denies dyspnea on exertion and Denies snoring GI Reports no additional complaints, Denies hematochezia, Denies change in stool character and Denies dyspepsia Musc Denies abnormal gait, Denies muscle weakness and Denies numbness Neuro Denies abnormal gait, Denies numbness and Denies weakness Endo Denies palpitations Physical Exam Vital Signs: Last Vital Signs Pulse 77 05/24/25 08:34 BP 132/88 05/24/25 08:34 BMI result Body Mass Index 31.3 Const General: cooperative, comfortable, no acute distress, alert, awake and well groomed Nutritional Appearance: overweight Orientation/consciousness: patient oriented x3 Limitations: no limitations Neck Neck: Yes trachea midline, Yes supple and Yes no JVD Resp Effort & Inspection: normal respiratory effort Auscultation: clear to auscultation bilaterally Cardio Jugular venous distension: no JVD Rhythm: abnormal rhythm irregularly irregular Heart sounds: S1 normal heart sound present and S2 normal heart sound present GI Auscultation: normal bowel sounds Skin General skin exam: no rashes or lesions noted Neuro General: patient oriented x3 and no focal motor deficits Extrem General: Yes no clubbing, cyanosis or edema Psych Appearance: grossly normal Office Procedures EKG Details: EKG shows atrial fibrillation with right bundle and left posterior fascicular block consistent with bifascicular block, unchanged with T-wave changes in inferior inferolateral leads most suggestive of repolarization abnormality 50876-Ydnoxvushyeqzpeum, Complete Assessment & Plan Assessment & Plan (1) Chronic atrial fibrillation: Comment: Asymptomatic chronic atrial fibrillation, rate control. Severe left atrial enlargement. Fail rhythm control approach Code(s): I48.20 - Chronic atrial fibrillation, unspecified Category: Medical Plan: Chronic rate control atrial fibrillation has failed rhythm control in the past and with given her chronicity of atrial fibrillation significant left atrial enlargement unlikely to pursue rhythm control. No cardiac decompensation signs of heart failure. Continue current rate control with metoprolol. Continue full oral anticoagulation, currently on Eliquis 5 mg b.i.d.. Semi annual renal function test should be pursued. (2) HTN (hypertension): Code(s): I10 - Essential (primary) hypertension Category: Medical Plan: Hypertension which is currently well optimized advised to monitor blood pressure at home maintain a log. Goal blood pressure less than 130/84. She says a blood pressure generally less than 120 at home. Advise low-salt diet. Advised to report any significant high blood pressure issues. Encouraged to increase activity level as tolerated. Continue aggressive diabetes management goal hemoglobin A1c less than 7% and goal LDL less than 70 mg/dL. (3) Bifascicular block: Code(s): I45.2 - Bifascicular block Category: Medical Plan: Bifascicular block on EKGs has remained stable. No interventions required. She has no symptoms related to it. Will follow up in the clinic in 1 year's time, sooner PRN. Thank you for allowing me to partake in her care Coding Level of Care Code Est Pt Level 4 (16495) Complex EM visit Add On G2211 Diagnoses Chronic atrial fibrillation I48.20 HTN (hypertension) I10 Bifascicular block I45.2 CPT Codes EKG - CPT: 02761-Mpxetcugjslaenmte, Complete ([id number])
== END 2025-05-24 08:58 | disposition home or self-care (01) ==
LOC: HO.HCS 07:46
PROVIDERS: PCP Nurse Practitioner Family; Visit Provider Internal Medicine Cardiovascular Disease
DX: I48.20 Chronic atrial fibrillation, unspecified (principal); I10 Essential (primary) hypertension; I45.2 Bifascicular block
CPT/HCPCS: 93010; 99214; G2211

== ENCOUNTER → 2025-05-24 07:45 | Outpatient (BNVA) | payer MEDICARE, SELFPAY | PROVIDERS: PCP Nurse Practitioner Family; Visit Provider Internal Medicine Cardiovascular Disease | DX: I48.20 Chronic atrial fibrillation, unspecified (principal); I10 Essential (primary) hypertension; I45.2 Bifascicular block | CPT/HCPCS: 93005; 99212 ==

== ENCOUNTER 2025-07-04 05:59 | Outpatient (REF) | payer MEDICARE, SELFPAY ==
--- OUTSIDE RECORDS SUMMARY | 2025-07-04 06:04 | XMS_ITS | Clinical Summary ---
Author Organization [facility] Address [address] [place] [address] Phone Care Team Providers Care Assembler Metal Furniture Name Role Phone Kiley Mazariegos GINNER Primary Care Provider [phone] Allergies Active Allergy Reactions Criticality Noted Date [...] PM EDT Office Visit Orthopedic Surgery - [address] [phone] Anoop Ortiz, DPTaj Acquired hallux valgus of right foot (Primary Dx); History of amputation of lesser toe of right foot (CMS/[facility] V24) from Last 3 Months Social History Tobacco [...] AM EST Office Visit Orthopedic Surgery - [place] [address] [place] [phone] Anoop Ortiz, DPM [address] [place] [phone] Health Maintenance Due Date Last Done Comments Breast Cancer Screening 1950 Colorectal Cancer Screening: Colonoscopy 1950 Diabetes: Annual GFR (Glomerular Filtration Rate) 1950 Diabetes: Annual Foot Exam 1962 Diabetes: Annual Retina Eye Exam 1962 DTaP,Tdap,and Td Vaccines (1 - Tdap) 1971 Pneumococcal Vaccine: 50+ Years (1 of 2 - PCV) 1971 RSV Immunization Adult Patients (1 - Risk 50-74 years 1-dose series) 2002 Zoster Vaccines (1 of 2) 2002 Depression Screening 08/30/2024 Cholesterol Screening (Lipid Panel) 01/01/2025 Falls Risk Assessment 01/01/2025 Hepatitis C Screening 01/01/2025 Medicare Annual Wellness Visit 01/01/2025 Osteoporosis Screening (Bone Density Screening) 01/01/2025 Social Influencers of Health Screening 01/01/2025 Diabetes: Annual Urine Albumin-Creatinine Ratio (uACR) 01/09/2025 Diabetes: Blood Sugar Control Test (HGBA1C) 01/09/2025 COVID-19 Vaccine ( - season) 2025 09/08/2021, 08/09/2021, 11/12/2020, Additional history [...] age to complete this topic Insurance MEDICARE [facility] Care Teams Assembler Metal Furniture Relationship Specialty Start Date End Date Kiley Mazariegos NP [address] [place] [address] [address] [place] [address] PCP - General Family Medicine 11/25/18
--- OUTSIDE RECORDS SUMMARY | 2025-07-04 06:04 | XMS_ITS | Patient Health Record ---
Author Organization [facility] Address [address] [place] [address] Care Team Providers Care Weld Engineer Name Role Phone Nate Olvera Primary Care Provider Unav ailAdi Loyola Unavailable [phone] Allergies Allergen (clinical drug ingredient) Drug/Non Drug [...] Problem Acquired hammer toe of right foot (4263054817121 105) Other hammer toe(s) (acquired), right foot (M20.41) Active confirmed Problem Type 2 diabetes mellitus with peripheral angiopathy (474891747) Type 2 diabetes mellitus with diabetic peripheral angiopathy without gangrene (E11.51) Active confirmed Q7(A), Q8(2B), Q9(1B,2C) Problem Acquired hammer toe of left foot (8138665786294 103) Other hammer toe(s) (acquired), left foot (M20.42) Active confirmed Vital Signs Blood pressure diastolic 65 mm Hg 2025 Height 5ft5in in 2025 Blood pressure systolic 126 mm Hg 2025 Weight 190 lbs 2025 BMI 31.61 kg/m2 2025 Procedures Procedure Date Ordered Date Performed Result Body Sit e 51223-PSOOEVH NAIL, 6 OR MORE 07/18/2024 N/A 47474-PLVD SKIN LESIONS, OVER 4 07/18/2024 N/A 39342-AWSYKXH NAIL, 6 OR MORE 10/10/2024 N/A 10329-JNEGLVX SKIN/TISSUE 10/10/2024 N/A 11945-EOYP SKIN LESIONS, OVER 4 10/10/2024 N/A 58945-ZLILFDB SKIN/TISSUE 11/03/2024 N/A 47541-QQLKQTB SKIN/TISSUE 12/05/2024 N/A 17079-LZZIPTX NAIL, 6 OR MORE 01/16/2025 N/A 73081-URSC SKIN LESIONS, OVER 4 01/16/2025 N/A 66380-RSFWZMQ NAIL, 6 OR MORE 2025 N/A 46975-RENR SKIN LESIONS, OVER 4 2025 N/A Encounters Encounter Location Date Provider Diagnosis [address] [address] 07/18/2024 Adi Chao Type 2 diabetes mellitus with diabetic peripheral angiopathy without gangrene E11.51 ; Tinea unguium B35.1 ; Pain in right toe(s) M79.674 ; Pain in left toe(s) M79.675 and Skin ulcer of toe of right foot, limited to breakdown of skin L97.[address] [address] 10/10/2024 Adi Chao Type 2 diabetes mellitus with diabetic peripheral angiopathy without gangrene E11.51 ; Tinea unguium B35.1 ; Pain in right toe(s) M79.674 ; Pain in left toe(s) M79.675 ; Tinea pedis of both feet B35.3 and Ischemic 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 L97.[address] [address] 11/03/2024 Aditavia Chao Tinea pedis of both feet B35.3 and Ischemic 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 L97.[address] [address] 12/05/2024 Adi Zhanna Ischemic 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 L97.[address] [address] 01/16/2025 Adi Chao Type 2 diabetes mellitus with diabetic peripheral angiopathy without gangrene E11.51 ; Tinea unguium B35.1 ; Pain in right toe(s) M79.674 ; Pain in left toe(s) M79.675 ; Ischemic 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 L97.512 ; Other hammer toe(s) (acquired), right foot M20.41 and Other hammer toe(s) (acquired), left foot M20.[address] [address] 2025 Adi Chao Type 2 diabetes mellitus with diabetic peripheral angiopathy without gangrene E11.51 ; Tinea unguium B35.1 ; Pain in right toe(s) M79.674 and Pain in left toe(s) M79.[address] [address] 09/04/2024 Adi Chao Tinea pedis of both feet B35.[address] [address] 10/11/2024 Adi Chao [address] [address] 02/19/2025 Adi Chao Assessments Encounter Date Diagnosis [...] X ray : Foot, right 3V 07/18/2018 58781-OCPBHZM NAIL, 6 OR MORE 11/17/2019 67568-JAYRIHS NAIL, 6 OR MORE 01/30/2020 85793-YLYFJWB NAIL, 6 OR MORE 04/09/2020 00959-XZZSHAZ NAIL, 6 OR MORE 06/14/2020 17751-KXZCDMU NAIL, 6 OR MORE 04/07/2017 24274-TDEHFTO NAIL, 6 OR MORE 10/04/2017 14083-YLNXMEY NAIL, 6 OR MORE 12/06/2017 39214-BPJEERZ NAIL, 6 OR MORE 02/23/2018 12973-NJOQGHR NAIL, 6 OR MORE 07/26/2017 49647-LDAAWPT NAIL, 6 OR MORE 04/28/2018 25945-SIZPLTQ NAIL, 6 OR MORE 11/04/2015 18702-HCGVTQZ NAIL, 6 OR MORE 02/05/2016 74289-DQPSHFO NAIL, 6 OR MORE 04/20/2016 60492-YGSNSHB NAIL, 6 OR MORE 06/22/2016 11343-IQNTWPE NAIL, 6 OR MORE 09/07/2016 68063-OEFPWNX NAIL, 6 OR MORE 11/16/2016 91014-LHOXFZE NAIL, 6 OR MORE 09/03/2020 27113-APJPXUY NAIL, 6 OR MORE 11/19/2020 50479-JRHXJIF NAIL, 6 OR MORE 02/21/2021 65094-OZMTPCE NAIL, 6 OR MORE 05/23/2021 61987-BODQIVL NAIL, 6 OR MORE 07/18/2021 79014-XSQEIZY NAIL, 6 OR MORE 10/07/2021 28017-CMFNRZT NAIL, 6 OR MORE 12/19/2021 62892-OZIKVOA NAIL, 6 OR MORE 02/27/2022 85455-BQWUDRX NAIL, 6 OR MORE 05/15/2022 80736-CWMKMZV NAIL, 6 OR MORE 07/31/2022 35591-HISETHT NAIL, 6 OR MORE 10/16/2022 25969-GFBNTZS NAIL, 6 OR MORE 12/22/2022 56781-KREFAUF NAIL, 6 OR MORE 02/26/2023 40774-ZQMFWLV NAIL, 6 OR MORE 06/18/2023 91083-NFPLVLJ NAIL, 6 OR MORE 09/03/2023 12169-TEFDMWI NAIL, 6 OR MORE 11/23/2023 61285-JJTAXPO NAIL, 6 OR MORE 02/01/2024 96527-SQDVROK NAIL, 6 OR MORE 04/18/2024 29012-AEKMVPR NAIL, 6 OR MORE 07/18/2024 91518-QXHKGQV NAIL, 6 OR MORE 10/10/2024 78944-PGBHOTN NAIL, 6 OR MORE 01/16/2025 29351-ZBKRFBA NAIL, 6 OR MORE 2025 27396-DMUMIKZ NAIL, 1-5 03/13/2015 82437-WRABPQY NAIL, 1-5 07/11/2014 00060-TCCEPRY NAIL, 1-5 12/13/2014 79155-ORLOPLS NAIL, 1-5 05/29/2015 74036-KOBOBLE NAIL, 1-5 08/07/2015 34228- Debride <25 sq cm 10/27/2017 48140- Debride <25 sq cm 09/03/2017 90591- Debride <25 sq cm 09/14/2017 98440- Debride <25 sq cm 09/22/2017 35935- Debride <25 sq cm 10/04/2017 19464- Debride <25 sq cm 06/23/2018 70499- Debride <25 sq cm 06/29/2018 61384- Debride <25 sq cm 04/18/2024 53547-YCOGRVN SKIN/TISSUE 10/10/2024 91828-QMHCYLX SKIN/TISSUE 11/03/2024 14864-NSPLMFH SKIN/TISSUE 12/05/2024 01053-PXWHFKT SKIN/TISSUE 07/07/2018 95506 I&D ABSCESS- SIMPLE,SINGLE 017 67392-MGMG SKIN LESIONS, OVER 4 01/21/20 17 09839-KJVD SKIN LESIONS, OVER 4 04/07/20 17 91102-ZUFB SKIN LESIONS, OVER 4 11/17/19 17 33524-OYVG SKIN LESIONS, OVER 4 09/07/19 17 15475-DSGE SKIN LESIONS, OVER 4 06/22/20 16 02283-JRDL SKIN LESIONS, OVER 4 04/20/20 16 13735-IWQQ SKIN LESIONS, OVER 4 02/05/20 16 15782-BOIG SKIN LESIONS, OVER 4 11/04/19 16 45054-GYBY SKIN LESIONS, OVER 4 08/07/20 15 03821-OGGS SKIN LESIONS, OVER 4 05/29/20 15 93572-INQH SKIN LESIONS, OVER 4 03/13/20 15 70152-QZJM SKIN LESIONS, OVER 4 06/14/20 20 99470-CVPZ SKIN LESIONS, OVER 4 04/09/20 20 64869-HRQA SKIN LESIONS, OVER 4 11/17/19 20 96540-PRFV SKIN LESIONS, OVER 4 01/30/20 20 72559-HIBN SKIN LESIONS, OVER 4 10/04/19 18 11710-ODQT SKIN LESIONS, OVER 4 07/26/20 17 52065-FTKR SKIN LESIONS, OVER 4 12/07/19 18 13954-XGSQ SKIN LESIONS, OVER 4 02/24/20 18 77434-INOJ SKIN LESIONS, OVER 4 04/28/20 18 49413-RSIT SKIN LESIONS, OVER 4 10/10/19 25 63140-CAIS SKIN LESIONS, OVER 4 07/18/20 24 10944-JJOT SKIN LESIONS, OVER 4 04/18/20 24 86487-GWSM SKIN LESIONS, OVER 4 04/24/20 25 05468-RKZE SKIN LESIONS, OVER 4 01/17/20 86236-VJFO SKIN LESIONS, OVER 4 02/01/20 03420-UVAJ SKIN LESIONS, OVER 4 11/23/19 38842-SOVN SKIN LESIONS, OVER 4 09/03/19 46944-SXBM SKIN LESIONS, OVER 4 06/18/20 99385-MKTZ SKIN LESIONS, OVER 4 02/27/20 23408-QNWH SKIN LESIONS, OVER 4 12/23/19 65993-UHKK SKIN LESIONS, OVER 4 10/16/19 92339-YNHA SKIN LESIONS, OVER 4 07/31/20 09753-YPDQ SKIN LESIONS, OVER 4 05/15/20 65345-KWKR SKIN LESIONS, OVER 4 02/28/20 87806-XMRE SKIN LESIONS, OVER 4 12/20/19 67200-AWWI SKIN LESIONS, OVER 4 10/07/19 72548-AZMI SKIN LESIONS, OVER 4 07/18/20 99951-ANQU SKIN LESIONS, OVER 4 02/22/20 50512-RAYR SKIN LESIONS, OVER 4 05/23/20 21 80696-TXBM SKIN LESIONS, OVER 4 11/20/19 21 84733-JFPI SKIN LESIONS, OVER 4 09/03/19 85869-BDSP SKIN LESIONS, 2 TO 4 12/14/19 15 16806-TJVA SKIN LESIONS, 2 TO 4 07/11/20 14 78278-Vozy. Subungual Hematoma 41561-WDVV NAIL(S) 07/11/2014 31656-KXMH NAIL(S) 12/13/2014 09397-FBJQ NAIL(S) 03/13/2015 71534-EAMN NAIL(S) 05/29/2015 75918-CSQC NAIL(S) 08/07/2015 79072-FLWCXKIB OF HEMATOMA/FLUID 018 53647-LMNJDUEJ OF HEMATOMA/FLUID 018 69015- Removal of Foreign Body, Subcut 0 03/28/2015 74477- Removal of Foreign Body, Subcut 0 01/20/2017 38666- Removal of Foreign Body, Subcut 0 02/26/2023 77442, J0702- Neuroma/Injection 04/20/20 16 Next Appt Details Provider Name:Adi Chao , 07/31/2025 09:30:00 AM, [address] [facility], [place], [address], Insurance Providers Payer Name Payer Address Payer Phone Subscriber Number Group Number Insured Name Patient Relationship to Insured Coverage Start Date Coverage End Date Medicare National [employer] [address] [place] [address] [id number] CouAnastasiya wade Self - patient is the insured 0 [employer] [address] [place] [address] [phone] [id number] Anastasiya Phan Self - patient is the insured Medical (General) History Medical History History ICD Code Measles Chicken pox Mumps Transfusions type II diabetes Surgical History Surgery Date(Month/Year) knee surgery cholecystectomy rotator cuff tear repair Rubio Bunionectomy R, HT R2,3, ORIF R2n d MTPJ 05/19/2018 nose bleed cauterized nose 05/02/2022 Hospitalization History Reason Date(Month/Year)
[2025-07-04 10:31] LABS: MANUAL DIFF FLAG NO
[2025-07-04 10:45] LABS: Microalbum/Creatinine Ratio Ur 756.0 ug/mg cr (<30)
[2025-07-04 10:52] LABS: Hematocrit 40.9 % (37.0-47.0); Hemoglobin 13.4 g/dl (12.0-16.0); Imm Gran Abs Auto 0.03 X10*3/uL (0.00-0.03); Imm Gran Pct Auto 0.5 % (0.0-0.4); Lymphocytes Absolute Auto 1.5 X10*3/uL (1.2-4.9); Mean Corpuscular HGB Conc 32.8 g/dl (31.0-35.0); Mean Corpuscular Hemoglobin 29.9 pg (27.0-33.0); Mean Corpuscular Volume 91.3 fL (80.0-98.0); NRBC Abs Auto 0.000 X10*3/uL (0.0-0.012); NRBC Pct Auto 0.0 /100WBC (0.0-0.2); Platelet Count 164 X10*3/uL (160-400); Red Blood Count 4.48 X10*6/uL (4.20-5.50); White Blood Count 6.4 X10*3/uL (4.8-10.8)
[2025-07-04 11:22] LABS: Alanine Aminotransferase 16 U/L (0-31); Albumin Level 4.4 g/dL (3.5-5.0); Alkaline Phosphatase 75 U/L (39-117); Anion Gap 9 (12-20); Aspartate Amino Transferase 26 U/L (5-31); Blood Urea Nitrogen 31 mg/dL (9-16); Calcium 9.4 mg/dL (8.4-10.2); Carbon Dioxide 29 mmol/L (22-29); Chloride 105 mmol/L (96-108); Cholesterol 149 mg/dL (<200); Estimated Glomerular Filt Rate 42; HDL Cholesterol 28 mg/dL (>40); Potassium 4.4 mmol/L (3.3-5.1); Sodium 139 mmol/L (135-145); Total Protein 7.8 g/dL (6.5-8.0); Triglycerides 125 mg/dL (<150)
== END 2025-07-04 06:00 | disposition home or self-care (01) ==
LOC: HO.HMGCLDS 05:59
PROVIDERS: PCP Nurse Practitioner Family; Visit Provider Nurse Practitioner Family
DX: E11.9 Type 2 diabetes mellitus without complications (principal)
CPT/HCPCS: 36415; 80053; 80061; 82043; 82306; 82570; 83036; 84443; 85025

== ENCOUNTER 2025-07-09 09:21 | Outpatient (AMB) | payer MEDICARE, SELFPAY ==
--- NOTE | 2025-07-09 09:47 | A.OFFPC_ITS ---
Vital Signs 07/09/25 09:49 Height 5 ft 5 in Weight 188 lb BMI 31.3 BP 148/78 H Blood Pressure Location Rt brachial Position Sitting Respiration 18 Pulse 80 Pulse Source Pulse Oximeter Pulse Oximetry (%) 98 Oxygen Delivery Method Room Air Intake Visit Reasons: 3m follow up/pt preferes earlier if it pops up Automatic Operator Required: No Accompanied by: Self / Same As Patient Allergies Iodinated Contrast Media (IV Dye, Iodine Containing) Allergy (Severe, Verified 07/09/25 09:53) ANAPHYLAXIS shellfish derived (SHELLFISH DERIVED) Allergy (Severe, Verified 07/09/25 09:53) ANAPHYLAXIS diltiazem (Cardizem) Allergy (Unknown, Verified 07/09/25 09:53) sob and leg swelling gabapentin (GABAPENTIN) Allergy (Unknown, Verified 07/09/25 09:53) UNKNOWN-PATIENT REFUSES gadobutrol (Gadavist) Allergy (Unknown, Verified 07/09/25 09:53) Unknown iopromide (Ultravist) Allergy (Unknown, Verified 07/09/25 09:53) Unknown losartan Adverse Reaction (Mild, Verified 07/09/25 09:53) Abdominal Pain Tobacco use date assessed: 07/09/25 Fall risk assessment: 1 Fall in past year Last assessed Fall Risk: 07/09/25 Dental Screening Dental Screen Date: 07/09/25 Did you have a dental visit in the last 12 months?: Yes Did you have a dental problem in the last 6 months where you did not have access to dental care?: No Was dental information given to patient?: Patient has dentist HPI 3m follow up/pt preferes earlier if it pops up HPI Details Chief Complaint The patient presents for a follow-up visit for management of uncontrolled diabetes. History of Present Illness The patient is a 75-year-old female presenting for a follow-up for uncontrolled diabetes. Her HbA1c is above 11.5%, and she consistently refuses insulin, other injectables such as GLP-1 agonists, and all vaccinations. The patient has significant microalbuminuria and has repeatedly refused referrals to a hand candy cutter. Regarding her foot health, she is followed by a job developer and has an upcoming eye exam scheduled. She has a history of a partially amputated right third toe, a large callus at the first MTP joint of the right foot, and bilateral bunions. There has been discussion about surgical correction for her bunion and callus, but this is deferred due to her high HbA1c. HTN: bp at home, it's in the 120s over 70s Social History Health Maintenance - The patient has an eye exam coming up. - The patient follows up with podiatry. - The patient declines all vaccinations. - The patient refuses referral to a neph rologist. Review of Systems Physical Exam General: Cooperative, healthy appearing, comfortable, no acute distress and well developed Orientation: Patient oriented x3 Limitations: No limitations Head: Normal to inspection Ears: Hearing grossly normal bilaterally Nose: Normal external nose present Face and sinus: Normal facial exam Eyes: Appearance normal, both eyes and all related structures Neck: Normal visual inspection and Yes full ROM Respiratory: Lungs were clear to auscultation bilaterally Cardiovascular: Irregularly irregular rhythm. Normal S1 and S2 GI: Normal to inspection. Soft to palpation and nontender Skin: No rashes or lesions noted Neuro: Patient oriented x3 Extremities: Right foot has a large callus at the first MTP joint at the plantar aspect, a very large bunion, and the 3rd toe is partially amputated. Positive sensation with use of monofilament. A bunion is noted on the left side. Tinea noted bilat Results - Labs: HbA1c is above 11.5%. Urinalysis shows significant microalbuminuria. Plan 1. Uncontrolled Type 2 Diabetes Mellitus The patient's diabetes remains severely uncontrolled with an HbA1c above 11.5%. She refuses all injectable medications, including insulin and GLP-1 agonists. She has agreed to start an SGLT-2 inhibitor. Will continue to monitor her condition and schedule a follow-up in three months. 2. Microalbuminuria The patient has significant microalbuminuria, a complication of her diabetes. She continues to absolutely refuse a referral to a hand candy cutter for further evaluation. Will attempt to restart her on an ARB for renal protection. 3. Chronic Diabetic Foot Issues The patient has multiple foot issues, including a large callus and bunion on the right foot, a bunion on the left foot, and a history of partial toe amputation; she is followed by podiatry. Potential surgery to address the bunion and callus has been discussed by her job developer, but she is not a surgical candidate at this time due to her severely elevated HbA1c. The plan is for continued care with her job developer. 4. Refusal Of Recommended Care The patient declined all offered vaccinations. She also refused treatment with any injectable medications, including insulin and GLP-1 agonists. This refusal has been documented. Starting a sgltz-I today. Discussion Notes I discussed with the patient that her diabetes is severely uncontrolled, as shown by her HbA1c level being over 11.5. I explained that her high blood sugar prevents her from being a candidate for foot surgery to correct her bunion and callus at this time. I noted her continued refusal of all injectable treatments, including insulin and GLP-1 agonists, as well as all vaccinations. We also reviewed the finding of significant microalbuminuria, and I reiterated my recommendation for a nephrology consultation, which she again refused. I proposed initiating an SGLT-2 inhibitor, an oral medication she agreed to try, and restarting an ARB to protect her kidneys. A follow-up appointment was scheduled in three months. Patient Instructions - Your diabetes is not well controlled, and your blood sugar is very high. - Because your blood sugar is too high, it is not safe for you to have the foot surgery that was discussed. - We are starting a new daily pill for y our diabetes, called an SGLT-2 inhibitor. - We will also restart a medication to h elp protect your kidneys, called an ARB. - Please make [facility] [place] [facility] [place] [facility] [place] - Continue to see your foot doctor (kareen dixon) for regular check-ups. - You have declined all shots, including vaccines and diabetes medicines like insulin. - You have also declined to see a kidney specialist, which was recommended. - Please schedule a follow-up appointmen t in our office in 3 months to check on your diabetes. [facility] Medical History History of wrist fracture Plantar callus Tinea unguium Diabetes mellitus type 2 with retinopathy Diabetic retinopathy Hammer toe of right foot Diabetic macular edema Colonoscopy refused Mammogram declined Anxiety Sciatica of right side Chronic atrial fibrillation Hypercholesteremia HTN (hypertension) Surgical History History of amputation of right third toe H/O lumbosacral spine surgery History of cholecystectomy Family History Father Prostate cancer Mother Kidney disease Social History Housing: House Alcohol intake: never Patient Tobacco Use Status: Never used Tobacco e-Cigarette/Vaping Use: Never Used service: No Current occupational status: retired Current occupation: Rt handed Cognitive needs: No Hearing needs: No Vision needs: No Questionnaire PHQ-9 Over the last 2 weeks, how often have you been bothered by any of the following problems? 5. Poor appetite or overeating: not at all 6. Feeling bad about yourself - or that you are a failure or have let yourself or your family down: not at all 7. Trouble concentrating on things, such as reading the newspaper or watching television: not at all 8. Moving or speaking so slowly that other people could have noticed. Or the opposite - being so fidgety or restless that you have been moving around a lot more than usual: not at all 9. Thoughts that you would be better off or of hurting yourself in some way: not at all Depression Screening Interpretation: Negative Depression Screening Done: Yes Source: Developed by Drs. Pasha Johnson, Danii Mann, Farhad Reed and colleagues, with an educational sandeep from [employer]. Thrive Questionnaire Date Thrive assessed: 01/11/25 I am a: Patient What is your living situation today?: I choose not to answer this question Within the past 12 months, did the food you bought not last and you didn't have the money to get more?: I choose not to answer this question Within the past 12 months, did you worry whether your food would run out before you got money to buy more?: I choose not to answer this question Do you have trouble paying for medicines?: I choose not to answer this question Do you have trouble getting transportation to medical appointments?: I choose not to answer this question Do you have trouble paying your heating and electricity bill?: I choose not to answer this question Do you have trouble taking care of your child, family member or friend?: I choose not to answer this question Do you have trouble with day-to-day activities such as bathing, preparing meals, shopping, managing finances, etc.?: I choose not to answer this question Are you currently unemployed and looking for a job?: I choose not to answer this question Are you interested in more education?: I choose not to answer this question Please select the resources that you would like help with: None Currently or been in a relationship where the following occur: I choose not to answer THRIVE Score: 0 YONY-7 AMB Questionnaire YONY-7 Date YONY - 7 assessed: 07/09/25 Feeling nervous, anxious, or on edge: 0 = Not at all Not being able to stop or control worryin = Not at all Worrying too much about different things: 0 = Not at all Trouble relaxin = Not at all Being so restless that it is hard to sit still: 0 = Not at all Becoming easily annoyed or irritable: 0 = Not at all Feeling afraid as if something awful might happen: 0 = Not at all Total YONY-7 score (0-4 normal; 5-9 mild; 10-14 moderate; 15-21 severe): 0 Source: Developed by Drs. Pasha Johnson, Danii Mann, Farhad Reed and colleagues, with an educational sandeep from [employer]. YONY-7 Assessment Billing YONY-7 Assessment Tool: YONY-7 Assessment 17570 Physical exam (Primary Care) Vital Signs: Last Vital Signs Pulse 80 07/09/25 09:49 Resp 18 07/09/25 09:49 BP 148/78 H 07/09/25 09:49 Pulse Ox 98 07/09/25 09:49 Oxygen Delivery Method Room Air 07/09/25 09:49 BMI result Body Mass Index 31.3 Tobacco/Smoking Status: Tobacco use Status Tobacco use date assessed 07/09/25 07/09/25 09:54 Patient Tobacco Use Status Never used Tobacco 07/09/25 09:48 e-Cigarette/Vaping Use Never Used 07/09/25 09:48 Depression Screening Interpretation: Negative Thrive Assessment: Date of Thrive Assessment Date Thrive assessed 01/11/25 07/09/25 09:48 Currently or been in a relationship where the following occur: I choose not to answer Coding Level of Care Code Est Pt Level 3 (07054) Diagnoses Uncontrolled diabetes mellitus with hyperglycemia E11.65 Plantar callus L84 Bunion M21.619 Microalbuminuria R80.9 Tinea unguium B35.1 Additional Codes YONY-7 Assessment Billing - YONY-7 Assessment Tool: YONY-7 Assessment 81343 ([id number]) Assessment & Plan Assessment & Plan (1) Uncontrolled diabetes mellitus with hyperglycemia: Code(s): E11.65 - Type 2 diabetes mellitus with hyperglycemia Category: Medical (2) Plantar callus: Code(s): L84 - Corns and callosities Category: Medical (3) Bunion: Code(s): M21.619 - Bunion of unspecified foot Category: Medical (4) Microalbuminuria: Code(s): R80.9 - Proteinuria, unspecified Category: Medical (5) Tinea unguium: Code(s): B35.1 - Tinea unguium Category: Medical Plan . Medications: New losartan 25 mg PO DAILY 30 tabs 3RF empagliflozin (Jardiance) 10 mg PO DAILY 30 tabs 2RF 30 days
[2025-07-09 09:49] VITALS: BP 148/78; PULSE 80; RESP 18; O2SAT 98; BMI 31.3
--- OUTSIDE RECORDS SUMMARY | 2025-07-09 10:14 | XMS_ITS | Clinical Summary ---
Author Organization [facility] Address [address] [place] [address] Phone Care Team Providers Care Student Services Vice President Name Role Phone Kiley Mazariegos [employer] CLOSING MACHINE TENDER Primary Care Provider [phone] Allergies Active Allergy Reactions Criticality Noted Date [...] PM EDT Office Visit Orthopedic Surgery - [address] [phone] Anoop Ortiz, DPTaj Acquired hallux valgus of right foot (Primary Dx); History of amputation of lesser toe of right foot (CMS/[facility] V24) from Last 3 Months Social History [...] AM EST Office Visit Orthopedic Surgery - [place] [address] [address] Anoop Ortiz, DPM [address] [address] Health Maintenance Due Date Last [...] age to complete this topic Insurance MEDICARE [facility] Care Teams Student Services Vice President Relationship Specialty Start Date End Date Kiley Mazariegos NP [address] [place] [address] [place] [id number] PCP - General Family Medicine 11/25/18
== END 2025-07-09 10:24 | disposition home or self-care (01) ==
LOC: HO.HMCC 09:22
PROVIDERS: PCP Nurse Practitioner Family; Visit Provider Nurse Practitioner Family
DX: E11.65 Type 2 diabetes mellitus with hyperglycemia (principal); L84 Corns and callosities; M21.619 Bunion of unspecified foot; R80.9 Proteinuria, unspecified; B35.1 Tinea unguium

== ENCOUNTER → 2025-07-09 09:21 | Outpatient (BNVA) | payer MEDICARE, SELFPAY | PROVIDERS: PCP Nurse Practitioner Family; Visit Provider Nurse Practitioner Family | DX: E11.65 Type 2 diabetes mellitus with hyperglycemia (principal); L84 Corns and callosities; R80.9 Proteinuria, unspecified; B35.1 Tinea unguium; M21.611 Bunion of right foot; M21.612 Bunion of left foot | CPT/HCPCS: 96127; 99212 ==